=== PATIENT | female | born 1980 | race Caucasian/White ===

== ENCOUNTER → 2017-03-19 | Outpatient (CLI) | payer OTHER ==
[~2017-03-19] MED LIST: ALBU90OI INH; ALBU90OI61 INH; ALPR1 PO; ARIP10 PO; ARIP20 PO; ATEN25 PO; BACPOLTO30 TP; BCP; BUSP10 PO; BUSP15 PO; CEPH500 PO; CHLO10; CHLO10 PO; CHLO25 PO; CIPR500 PO; DIPH50 PO; DISU250; DULO60 PO; ESCI10; ESCI10 PO; ESCI20 PO; FOLI1 PO; HYDACE5 PO; HYDPAM25 PO; HYDPAM50 PO; IBUP400 PO; IBUP600 PO; IBUP800 PO; INHALER; LAMO25; LEVE500 PO; LIND60T TOP; LITH300C PO; MECL25 PO; MEDR150I; METO10 PO; METR500 PO; METR70GEL VAG; MULVITMIND; MULVITMINE PO; NAPR500 PO; NITR100CA; OXYACE5T PO; PHENA100; PHENA200 PO; PRENATAL PO; PROM25 PO; RANI150 PO; RXHYDACE PO; RXLORA1 PO; RXOXYACE PO; SERT100 PO; SERT50 PO; SPRINTEC BCP; SULTRISS; TAMS.4ER PO; TEGRETOL; TOPI25 PO; TOPI50 PO; TRAM50 PO; TRAZ100 PO; TRAZ50 PO; Triamcinolone A15 GM TOP; ZIPR40 PO; ZOLOFT PO; Zofran8 MG PO; [UNRECOGNIZED DRUG - OTHER]; [UNRECOGNIZED DRUG - REMARK]; [UNRECOGNIZED DRUG - REMARK]; [UNRECOGNIZED DRUG - REMARK]
[2017-03-19 14:17] LABS: Bilirubin, Urine Neg (Neg); Blood, Urine Neg (Neg); Glucose Qualitative, Urine Neg (Neg); Ketones, Urine 2+ (Neg); Leukocyte Esterase, Urine Neg (Neg); Nitrite, Urine Neg (Neg); Protein, Urine 3+ (Neg); Urobilinogen, Urine 1+ (Normal)
[2017-03-19 14:40] LABS: Amorphous Light (0-Heavy); Appearance, Urine Clear (Clear); Bacteria Mod /hpf; Color, Urine Yellow (P-Yellow); Red Blood Cells, Urine 0-2 /hpf (0-2); Squamous Epithelial Cells Few /hpf (Few); White Blood Cells, Urine 0-2 /hpf (0-5)
== END ==
LOC: LAB UCHC 11:28
PROVIDERS: Family Medicine
DX: R30.0 Dysuria (principal)
CPT/HCPCS: 81001; 87086; 87147

== ENCOUNTER 2017-05-05 12:17 | Emergency (ER) | payer OTHER ==
[~2017-05-05] VITALS: Ht 160 cm; Wt 65.8 kg
[~2017-05-05 12:17] MED LIST changes: -LEVE500 PO; -LIND60T TOP; -Triamcinolone A15 GM TOP
[2017-05-05] MEDS ORDERED: LEVE500 PO ×2 (12:26→13:38)
[2017-05-05 12:56] LABS: BASOPHILS ABSOLUTE AUTO 0.01 K/mm3 (0.00-0.23); BASOPHILS PERCENT AUTO 0 % (0-2); EOSINOPHILS ABSOLUTE AUTO 0.02 K/mm3 (0.00-0.68); EOSINOPHILS PERCENT AUTO 0 % (0-6); Hematocrit 33.3 % (33.0-51.0); Hemoglobin 11.3 g/dL (11.5-16.0); IMMATURE GRAN ABSOLUTE AUTO 0.01 K/mm3 (0.00-0.10); IMMATURE GRAN PERCENT AUTO 0 % (0-1); LYMPHOCYTES ABSOLUTE AUTO 0.52 K/mm3 (0.84-5.20); LYMPHOCYTES PERCENT AUTO 10 % (21-46); MONOCYTES ABSOLUTE AUTO 0.49 K/mm3 (0.16-1.47); MONOCYTES PERCENT AUTO 9 % (4-13); Mean Corpuscular HGB 33.3 pg (26.0-34.0); Mean Corpuscular HGB Conc 33.9 g/dL (31.5-36.5); Mean Corpuscular Volume 98 fL (80-100); NEUTROPHILS ABSOLUTE AUTO 4.28 K/mm3 (1.96-9.15); NEUTROPHILS PERCENT AUTO 80 % (41-73); RDW Coefficient Variation 15.8 % (11.7-14.2); RDW Standard Deviation 56.4 fL (35.1-46.3); Red Blood Cell Count 3.39 M/mm3 (3.80-5.20); White Blood Cell Count 5.33 K/mm3 (4.00-11.30)
[2017-05-05 13:16] LABS: Alanine Aminotransfer (ALT/SGP 60 U/L (12-78); Albumin, Blood 3.2 g/dL (3.4-5.0); Albumin/Globulin Ratio 0.9 (0.8-1.8); Alk Phos 104 U/L (50-136); Anion Gap 10 mmol/L (6-16); Aspartate Aminotrans (AST/SGOT 104 U/L (12-37); Bilirubin, Total 0.6 mg/dL (0.1-1.0); Blood Urea Nitrogen 9 mg/dL (8-24); Bun/Creatinine Ratio 16.3 (12.0-20.0); CO2, Blood 25 mmol/L (21-32); Calcium, Blood 8.3 mg/dL (8.5-10.1); Chloride, Blood 101 mmol/L (98-108); Creatinine, Blood 0.55 mg/dL (0.40-1.00); Globulin, Blood 3.6 g/dL (2.2-4.0); Glomerular Filtration Rate >60 (60-); Glucose, Blood 106 mg/dL (70-99); Potassium, Blood 3.7 mmol/L (3.5-5.5); Sodium, Blood 136 mmol/L (136-145); Total Protein, Blood 6.8 g/dL (6.4-8.2)
[2017-05-05 13:56] LABS: Mean Platelet Volume 11.5 fL (9.1-12.4)
[2017-05-05 14:01] LABS: Platelet Count 31 K/mm3 (150-400)
[2017-05-05] MEDS ORDERED: Triamcinolone A15 GM TOP (14:46)
== END 2017-05-05 15:05 | disposition home or self-care (01) ==
LOC: ER 12:17
PROVIDERS: Emergency Medicine
DX: G40.909 Epilepsy, unspecified, not intractable, without status epilepticus (principal); L30.9 Dermatitis, unspecified; Z91.19 Patient's noncompliance with other medical treatment and regimen; Z88.8 Allergy status to other drugs, medicaments and biological substances; Z79.899 Other long term (current) drug therapy; F43.10 Post-traumatic stress disorder, unspecified; F32.9 Major depressive disorder, single episode, unspecified; F41.9 Anxiety disorder, unspecified; F17.210 Nicotine dependence, cigarettes, uncomplicated
CPT/HCPCS: 36415; 80053; 85025; 96365; 99283; J1953

== ENCOUNTER 2017-06-21 19:22 | Observation (INO) | payer OTHER ==
[~2017-06-21] VITALS: Ht 165.1 cm; Wt 65.8 kg
[~2017-06-21 19:22] MED LIST changes: +LEVE500 PO; +Triamcinolone A15 GM TOP
[2017-06-21 21:02] LABS: BASOPHILS ABSOLUTE AUTO 0.02 K/mm3 (0.00-0.23); BASOPHILS PERCENT AUTO 0 % (0-2); EOSINOPHILS ABSOLUTE AUTO 0.43 K/mm3 (0.00-0.68); EOSINOPHILS PERCENT AUTO 8 % (0-6); Hematocrit 37.7 % (33.0-51.0); Hemoglobin 12.3 g/dL (11.5-16.0); IMMATURE GRAN ABSOLUTE AUTO 0.02 K/mm3 (0.00-0.10); IMMATURE GRAN PERCENT AUTO 0 % (0-1); LYMPHOCYTES ABSOLUTE AUTO 1.94 K/mm3 (0.84-5.20); LYMPHOCYTES PERCENT AUTO 37 % (21-46); MONOCYTES ABSOLUTE AUTO 0.64 K/mm3 (0.16-1.47); MONOCYTES PERCENT AUTO 12 % (4-13); Mean Corpuscular HGB 33.1 pg (26.0-34.0); Mean Corpuscular HGB Conc 32.6 g/dL (31.5-36.5); Mean Corpuscular Volume 101 fL (80-100); Mean Platelet Volume 11.7 fL (9.1-12.4); NEUTROPHILS ABSOLUTE AUTO 2.23 K/mm3 (1.96-9.15); NEUTROPHILS PERCENT AUTO 42 % (41-73); Platelet Count 70 K/mm3 (150-400); RDW Coefficient Variation 16.2 % (11.7-14.2); RDW Standard Deviation 59.2 fL (35.1-46.3); Red Blood Cell Count 3.72 M/mm3 (3.80-5.20); White Blood Cell Count 5.28 K/mm3 (4.00-11.30)
[2017-06-21 21:09] LABS: Anion Gap 10 mmol/L (6-16); Blood Urea Nitrogen 9 mg/dL (8-24); Bun/Creatinine Ratio 14.9 (12.0-20.0); CO2, Blood 26 mmol/L (21-32); Calcium, Blood 8.2 mg/dL (8.5-10.1); Chloride, Blood 110 mmol/L (98-108); Creatinine, Blood 0.61 mg/dL (0.40-1.00); Glomerular Filtration Rate >60 (60-); Glucose, Blood 89 mg/dL (70-99); Potassium, Blood 3.8 mmol/L (3.5-5.5); Sodium, Blood 146 mmol/L (136-145)
[2017-06-21 21:42] LABS: Ethanol (Alcohol), Blood, Med 423 mg/dL
[2017-06-22] MEDS ORDERED: LIND60T TOP (11:04)
== END 2017-06-22 11:40 | disposition home or self-care (01) ==
LOC: ER 19:22 → EOR 22:12
PROVIDERS: Emergency Medicine
DX: F19.10 Other psychoactive substance abuse, uncomplicated (principal); F10.129 Alcohol abuse with intoxication, unspecified; R56.9 Unspecified convulsions; B86 Scabies; B85.1 Pediculosis due to Pediculus humanus corporis; F43.10 Post-traumatic stress disorder, unspecified; F32.9 Major depressive disorder, single episode, unspecified; F41.9 Anxiety disorder, unspecified; R10.9 Unspecified abdominal pain; G89.29 Other chronic pain; F17.210 Nicotine dependence, cigarettes, uncomplicated; Z88.8 Allergy status to other drugs, medicaments and biological substances; Z79.899 Other long term (current) drug therapy; Y90.8 Blood alcohol level of 240 mg/100 ml or more
CPT/HCPCS: 36415; 80048; 85025; 96365; 99285; G0378; G0480; J1953

== ENCOUNTER → 2018-08-08 | Outpatient (CLI) | payer OTHER ==
[~2018-08-08] MED LIST changes: +LIND60T TOP
[2018-08-08 19:07] LABS: BASOPHILS ABSOLUTE AUTO 0.01 K/mm3 (0.00-0.23); BASOPHILS PERCENT AUTO 0 % (0-2); EOSINOPHILS ABSOLUTE AUTO 0.09 K/mm3 (0.00-0.68); EOSINOPHILS PERCENT AUTO 2 % (0-6); Hematocrit 29.8 % (33.0-51.0); Hemoglobin 9.2 g/dL (11.5-16.0); IMMATURE GRAN ABSOLUTE AUTO 0.01 K/mm3 (0.00-0.10); IMMATURE GRAN PERCENT AUTO 0 % (0-1); LYMPHOCYTES ABSOLUTE AUTO 1.06 K/mm3 (0.84-5.20); LYMPHOCYTES PERCENT AUTO 21 % (21-46); MONOCYTES ABSOLUTE AUTO 0.57 K/mm3 (0.16-1.47); MONOCYTES PERCENT AUTO 11 % (4-13); Mean Corpuscular HGB 30.1 pg (26.0-34.0); Mean Corpuscular HGB Conc 30.9 g/dL (31.5-36.5); Mean Corpuscular Volume 97 fL (80-100); NEUTROPHILS ABSOLUTE AUTO 3.31 K/mm3 (1.96-9.15); NEUTROPHILS PERCENT AUTO 66 % (41-73); RDW Coefficient Variation 17.7 % (11.7-14.2); RDW Standard Deviation 63.1 fL (35.1-46.3); Red Blood Cell Count 3.06 M/mm3 (3.80-5.20); White Blood Cell Count 5.05 K/mm3 (4.00-11.30)
[2018-08-08 19:15] LABS: Mean Platelet Volume 13.5 fL (9.1-12.4)
[2018-08-08 19:19] LABS: Alanine Aminotransfer (ALT/SGP 77 U/L (12-78); Albumin, Blood 3.1 g/dL (3.4-5.0); Albumin/Globulin Ratio 0.8 (0.8-1.8); Alk Phos 159 U/L (50-136); Anion Gap 9 mmol/L (6-16); Aspartate Aminotrans (AST/SGOT 270 U/L (12-37); Bilirubin, Total 0.3 mg/dL (0.1-1.0); Blood Urea Nitrogen 5 mg/dL (8-24); CO2, Blood 26 mmol/L (21-32); Calcium, Blood 8.3 mg/dL (8.5-10.1); Chloride, Blood 103 mmol/L (98-108); Creatinine, Blood 0.56 mg/dL (0.40-1.00); Globulin, Blood 3.9 g/dL (2.2-4.0); Glomerular Filtration Rate >60 (60-); Glucose, Blood 92 mg/dL (70-99); Potassium, Blood 3.6 mmol/L (3.5-5.5); Sodium, Blood 138 mmol/L (136-145)
[2018-08-08 19:25] LABS: Platelet Count 35 K/mm3 (150-400)
== END | disposition home or self-care (01) ==
LOC: LAB SHORT 18:30 → LAB 18:30
PROVIDERS: Family Medicine
DX: G40.909 Epilepsy, unspecified, not intractable, without status epilepticus (principal); Z79.899 Other long term (current) drug therapy
CPT/HCPCS: 80053; 84443; 85025

== ENCOUNTER → 2019-01-12 | Outpatient (CLI) | payer OTHER | END | disposition home or self-care (01) | LOC: LAB 18:26 → LAB SHORT 18:26 | DX: R30.0 Dysuria (principal); R30.9 Painful micturition, unspecified | CPT/HCPCS: 87086 ==

== ENCOUNTER → 2019-01-25 | Outpatient (CLI) | payer OTHER ==
[2019-01-28 12:07] LABS: CHLAMYDIA BY NAA Negative (Negative); GONOCOCCUS BY NAA Negative (Negative); TRICH VAG BY NAA Negative (Negative)
== END ==
LOC: LAB SHORT 18:05 → LAB 18:05
PROVIDERS: Registered Nurse Community Health
DX: Z11.3 Encounter for screening for infections with a predominantly sexual mode of transmission (principal); Z20.2 Contact with and (suspected) exposure to infections with a predominantly sexual mode of transmission; Z72.51 High risk heterosexual behavior; N89.8 Other specified noninflammatory disorders of vagina
CPT/HCPCS: 87070; 87205; 87491; 87591; 87661

== ENCOUNTER → 2019-06-05 | Outpatient (CLI) | payer OTHER ==
[~2019-06-05] MED LIST changes: +ONDA4ODT MM; +Roxicodone5 MG PO
[2019-06-05 14:57] LABS: BASOPHILS ABSOLUTE AUTO 0.02 K/mm3 (0.00-0.23); BASOPHILS PERCENT AUTO 0 % (0-2); EOSINOPHILS ABSOLUTE AUTO 0.05 K/mm3 (0.00-0.68); EOSINOPHILS PERCENT AUTO 1 % (0-6); Hematocrit 32.8 % (33.0-51.0); Hemoglobin 9.9 g/dL (11.5-16.0); IMMATURE GRAN ABSOLUTE AUTO 0.01 K/mm3 (0.00-0.10); IMMATURE GRAN PERCENT AUTO 0 % (0-1); LYMPHOCYTES ABSOLUTE AUTO 0.92 K/mm3 (0.84-5.20); LYMPHOCYTES PERCENT AUTO 16 % (21-46); MONOCYTES ABSOLUTE AUTO 0.84 K/mm3 (0.16-1.47); MONOCYTES PERCENT AUTO 15 % (4-13); Mean Corpuscular HGB 27.7 pg (26.0-34.0); Mean Corpuscular HGB Conc 30.2 g/dL (31.5-36.5); Mean Corpuscular Volume 92 fL (80-100); NEUTROPHILS ABSOLUTE AUTO 3.82 K/mm3 (1.96-9.15); NEUTROPHILS PERCENT AUTO 67 % (41-73); Platelet Count 79 K/mm3 (150-400); RDW Standard Deviation 67.5 fL (35.1-46.3); Red Blood Cell Count 3.58 M/mm3 (3.80-5.20); White Blood Cell Count 5.66 K/mm3 (4.00-11.30)
[2019-06-05 15:07] LABS: Mean Platelet Volume 13.1 fL (9.1-12.4)
[2019-06-05 15:37] LABS: Alanine Aminotransfer (ALT/SGP 66 U/L (12-78); Albumin, Blood 3.3 g/dL (3.4-5.0); Albumin/Globulin Ratio 0.8 (0.8-1.8); Alk Phos 150 U/L (50-136); Anion Gap 7 mmol/L (6-16); Aspartate Aminotrans (AST/SGOT 146 U/L (12-37); Bilirubin, Total 0.6 mg/dL (0.1-1.0); Blood Urea Nitrogen 10 mg/dL (8-24); Bun/Creatinine Ratio 22.3 (12.0-20.0); CO2, Blood 25 mmol/L (21-32); Calcium, Blood 8.6 mg/dL (8.5-10.1); Chloride, Blood 103 mmol/L (98-108); Creatinine, Blood 0.45 mg/dL (0.40-1.00); Globulin, Blood 4.1 g/dL (2.2-4.0); Glomerular Filtration Rate >60 (60-); Glucose, Blood 97 mg/dL (70-99); Potassium, Blood 4.1 mmol/L (3.5-5.5); Sodium, Blood 135 mmol/L (136-145); Total Protein, Blood 7.4 g/dL (6.4-8.2)
[2019-06-05 15:40] LABS: Alanine Aminotransfer (ALT/SGP 66 U/L (12-78); Albumin, Blood 3.3 g/dL (3.4-5.0); Albumin/Globulin Ratio 0.8 (0.8-1.8); Alk Phos 150 U/L (50-136); Anion Gap 6 mmol/L (6-16); Aspartate Aminotrans (AST/SGOT 145 U/L (12-37); Bilirubin, Direct 0.2 mg/dL (0.0-0.3); Bilirubin, Indirect 0.5 mg/dL (0.1-0.7); Bilirubin, Total 0.7 mg/dL (0.1-1.0); Blood Urea Nitrogen 10 mg/dL (8-24); Bun/Creatinine Ratio 19.7 (12.0-20.0); CO2, Blood 26 mmol/L (21-32); Calcium, Blood 8.5 mg/dL (8.5-10.1); Chloride, Blood 103 mmol/L (98-108); Creatinine, Blood 0.51 mg/dL (0.40-1.00); Globulin, Blood 4.1 g/dL (2.2-4.0); Glomerular Filtration Rate >60 (60-); Glucose, Blood 96 mg/dL (70-99); Phosphorus, Blood 3.2 mg/dL (2.5-4.9); Potassium, Blood 4.1 mmol/L (3.5-5.5); Sodium, Blood 135 mmol/L (136-145); Total Protein, Blood 7.4 g/dL (6.4-8.2)
[2019-06-05 16:08] LABS: Percent Saturation 10.6 % (15.0-50.0)
== END | disposition home or self-care (01) ==
LOC: LAB SHORT 13:40 → OLS 13:40 → LAB FUT 01-13 16:35
PROVIDERS: Family Medicine; Internal Medicine Nephrology
DX: G40.909 Epilepsy, unspecified, not intractable, without status epilepticus (principal); F10.10 Alcohol abuse, uncomplicated; N18.2 Chronic kidney disease, stage 2 (mild); R73.09 Other abnormal glucose; N25.81 Secondary hyperparathyroidism of renal origin; R94.5 Abnormal results of liver function studies; Z79.899 Other long term (current) drug therapy
CPT/HCPCS: 36415; 80053; 80177; 82248; 82306; 82607; 82728; 82746; 83036; 83540; 83550; 83970; 84100; 85025

== ENCOUNTER 2019-07-20 07:40 | Day surgery (SDC) | payer OTHER ==
[~2019-07-20] VITALS: Ht 208.3 cm; Wt 82.9 kg
[~2019-07-20 07:40] MED LIST changes: +LOSA25 PO; +OMEP20ER PO; +Vitamin D2000 UNIT PO
--- NOTE | 2019-07-20 08:25 | NUR ---
Ambulatory in Day Surgery Patient states colon prep results clear. History, Chart, Medications and Allergies reviewed before start of procedure. Pre-Op teaching done. Pt verbalizes understanding.
[2019-07-20] MEDS ORDERED: ALBU90OI INH (08:30)
--- NOTE | 2019-07-20 09:37 | NUR ---
07/20/19 0937 SARAH HAMILTON History, Chart, Medications and Allergies reviewed before start of procedure. 3-LEAD EKG REVIEWED WITH PHYSICIAN PRIOR TO START OF PROCEDURE. O2 VIA N/C INTACT THROUGHOUT SEDATION/PROCEDURE. MONITOR INTACT WITH CONTINUOUS PULSE OXIMETRY AND INTERMITTENT BP. MAC WITH DR. LÓPEZ.
--- NOTE | 2019-07-20 10:03 | NUR ---
LIBRIUM 20MG PO GIVEN PER DR FITZGERALD ORDERS. Discharge instructions reviewed with patient. Patient verbalizes understanding. Copy given to patient to take home. Patient up to Ambulate independently. Gait steady. Patient States Post-Procedure ride home has been arranged. Discharged via wheelchair to private car for ride home.
== END 2019-07-20 10:17 | disposition home or self-care (01) ==
LOC: ORSCMMR 07:40
PROVIDERS: Internal Medicine Gastroenterology
PROC: 0DBK8ZX Excision of Ascending Colon, Via Natural or Artificial Opening Endoscopic, Diagnostic (ICD-10-PCS; principal; 2019-07-20 08:45)
PROC: 0DB98ZX Excision of Duodenum, Via Natural or Artificial Opening Endoscopic, Diagnostic (ICD-10-PCS; principal; 2019-07-20 08:45)
PROC: 0DBN8ZX Excision of Sigmoid Colon, Via Natural or Artificial Opening Endoscopic, Diagnostic (ICD-10-PCS; principal; 2019-07-20 08:45)
PROC: 0DBM8ZX Excision of Descending Colon, Via Natural or Artificial Opening Endoscopic, Diagnostic (ICD-10-PCS; principal; 2019-07-20 08:45)
PROC: 0DB48ZX Excision of Esophagogastric Junction, Via Natural or Artificial Opening Endoscopic, Diagnostic (ICD-10-PCS; principal; 2019-07-20 08:45)
DX: K92.0 Hematemesis (principal); D46.4 Refractory anemia, unspecified; K21.9 Gastro-esophageal reflux disease without esophagitis; D12.2 Benign neoplasm of ascending colon; K63.5 Polyp of colon; D69.6 Thrombocytopenia, unspecified; F17.210 Nicotine dependence, cigarettes, uncomplicated; I10 Essential (primary) hypertension; Z79.899 Other long term (current) drug therapy; F10.20 Alcohol dependence, uncomplicated
CPT/HCPCS: 88305; 88312; J2001; J2250; J2405; J2704; J7120

== ENCOUNTER → 2019-12-11 | Outpatient (CLI) | payer OTHER ==
[~2019-12-11] MED LIST changes: +SULTRIDS PO
[2019-12-11 19:54] LABS: Hematocrit 28.8 % (33.0-51.0); Hemoglobin 8.7 g/dL (11.5-16.0)
[2019-12-11 20:12] LABS: Thyroid Stimulating Hormone 3.52 uIU/mL (0.360-4.800); Triiodothyronine, Free 2.95 pg/mL (2.18-3.98)
[2019-12-14 16:07] LABS: HPV 16 Negative (Negative); HPV 18 Negative (Negative); HPV OTHER HR TYPES Negative (Negative)
== END ==
LOC: LAB SHORT 19:23 → LAB 19:23
PROVIDERS: Registered Nurse Community Health
DX: Z01.419 Encounter for gynecological examination (general) (routine) without abnormal findings (principal); N92.0 Excessive and frequent menstruation with regular cycle
CPT/HCPCS: 84439; 84443; 84481; 85014; 85018; 87624; G0123

== ENCOUNTER 2020-05-21 14:10 | Inpatient (IN) | payer OTHER ==
[~2020-05-21] VITALS: Ht 157.5 cm; Wt 96.9 kg
[~2020-05-21 14:10] MED LIST changes: +BANOPHEN25 MG PO; +LACT10SY PO; +LEVETIRACETAM1000 M1 PO; -LOSA25 PO; +LOSA50 PO; +OXYC5 PO; +PANT40 PO; +VITAMIN D32000 UNI1 PO
[2020-05-21] MEDS ORDERED: PANTOPRAZOLE SO40 M2 PO (14:39)
[2020-05-21 15:03] LABS: Magnesium, Blood 1.5 mg/dL (1.6-2.4); Troponin I <0.015 ng/mL (0.000-0.040)
[2020-05-21 15:04] LABS: Alanine Aminotransfer (ALT/SGP 45 U/L (12-78); Albumin, Blood 2.6 g/dL (3.4-5.0); Albumin/Globulin Ratio 0.6 (0.8-1.8); Alk Phos 541 U/L (50-136); Anion Gap 12 mmol/L (6-16); Aspartate Aminotrans (AST/SGOT 235 U/L (12-37); Bilirubin, Direct 1.1 mg/dL (0.0-0.3); Bilirubin, Indirect 0.5 mg/dL (0.1-0.7); Bilirubin, Total 1.6 mg/dL (0.1-1.0); Blood Urea Nitrogen 5 mg/dL (8-24); Bun/Creatinine Ratio 10.6 (12.0-20.0); CO2, Blood 24 mmol/L (21-32); Calcium, Blood 7.8 mg/dL (8.5-10.1); Chloride, Blood 101 mmol/L (98-108); Creatinine, Blood 0.47 mg/dL (0.40-1.00); Globulin, Blood 4.2 g/dL (2.2-4.0); Glomerular Filtration Rate >60 (60-); Glucose, Blood 108 mg/dL (70-99); Potassium, Blood 3.9 mmol/L (3.5-5.5); Sodium, Blood 137 mmol/L (136-145); Total Protein, Blood 6.8 g/dL (6.4-8.2)
[2020-05-21 15:06] LABS: BASOPHILS ABSOLUTE AUTO 0.03 K/mm3 (0.00-0.23); BASOPHILS PERCENT AUTO 0 % (0-2); EOSINOPHILS ABSOLUTE AUTO 0.08 K/mm3 (0.00-0.68); EOSINOPHILS PERCENT AUTO 1 % (0-6); Hematocrit 25.8 % (33.0-51.0); Hemoglobin 8.7 g/dL (11.5-16.0); IMMATURE GRAN ABSOLUTE AUTO 0.03 K/mm3 (0.00-0.10); IMMATURE GRAN PERCENT AUTO 0 % (0-1); LYMPHOCYTES ABSOLUTE AUTO 1.39 K/mm3 (0.84-5.20); LYMPHOCYTES PERCENT AUTO 16 % (21-46); MONOCYTES ABSOLUTE AUTO 0.91 K/mm3 (0.16-1.47); MONOCYTES PERCENT AUTO 11 % (4-13); Mean Corpuscular HGB 38.7 pg (26.0-34.0); Mean Corpuscular HGB Conc 33.7 g/dL (31.5-36.5); Mean Corpuscular Volume 115 fL (80-100); Mean Platelet Volume 12.7 fL (9.1-12.4); NEUTROPHILS PERCENT AUTO 71 % (41-73); NRBC ABSOLUTE 0.02 K/mm3 (0.00-0.02); NRBC Auto 0.2 /100 WBC (0.0-0.2); RDW Coefficient Variation 15.9 % (11.7-14.2); RDW Standard Deviation 66.3 fL (35.1-46.3); Red Blood Cell Count 2.25 M/mm3 (3.80-5.20); White Blood Cell Count 8.54 K/mm3 (4.00-11.30)
[2020-05-21 15:08] LABS: International Normalized Ratio 1.08; Prothrombin Time Results 11.6 Sec (9.7-11.5)
[2020-05-21] MEDS ORDERED: SPIRONOLACTONE25 MG PO (15:22)
[2020-05-21 15:25] LABS: Platelet Count 39 K/mm3 (150-400)
[2020-05-21 16:18] LABS: Source, Urine Catheter
[2020-05-21 16:57] LABS: Appearance, Urine Hazy (Clear); Blood, Urine 2+ (Neg); Color, Urine Amber (P-Yellow); Glucose Qualitative, Urine Neg (Neg); Ketones, Urine 2+ (Neg); Leukocyte Esterase, Urine 1+ (Neg); Nitrite, Urine Pos (Neg); Protein, Urine 3+ (Neg); Specific Gravity, Urine 1.025 (1.003-1.022); Urobilinogen, Urine 3+ (Normal)
[2020-05-21 17:15] LABS: U Amphetamine Screen Not Detected; U Barbituate Screen Not Detected; U Benzodiazapine Screen Not Detected; U Buprenorphine Screen Not Detected; U Cannabinoids Screen DETECTED; U Cocaine Screen Not Detected; U Methadone Screen Not Detected; U Methamphetamine Screen Not Detected; U Opiates Screen Not Detected; U Oxycodone Screen Not Detected; U Phencyclidine Screen Not Detected; U Propoxyphene Screen Not Detected
[2020-05-21 17:19] LABS: Bilirubin, Urine 2+ (Neg)
[2020-05-21 17:22] LABS: Amorphous Light (0-Heavy); Bacteria Many /hpf; Mucus Light (0-Heavy); Renal Epithelial Few /hpf (0-Rare); Squamous Epithelial Cells Rare /hpf (Few); Transitional Epithelial Cells Few /hpf (0-Rare)
[2020-05-21 19:59] LABS: Hematocrit 21.3 % (33.0-51.0); Hemoglobin 7.1 g/dL (11.5-16.0)
--- NOTE | 2020-05-21 23:15 | NUR ---
REPORT RECIEVED FROM STREETCAR OPERATOR. PT ARRIVED IN ICU 2004 VIA STRETCHER, A&O, ABLE TO STAND AND WALK TO BED. LARGE CLOT FROM MENSES ON BED. VITALS DONE, NAOTED AND STABLE, PT ON 2 L N/C. STARTED PROTONIX GTT AND IV NS PER ORDERS SEE APR. PT UP TO BSC WITH ASSIST OF 1 FOR HELP WITH LINES. VOIDED, SMALL BM/ APPEARS DARK IN COLOR, AND ANOTHER LARGE MENSES CLOT NOTED. PT BACK TO BED, CONTINUE ASSESSMENT, VITALS AND CARE.
[2020-05-21 23:47] LABS: Hemoglobin 6.6 g/dL (11.5-16.0)
--- NOTE | 2020-05-22 00:08 | NUR ---
LABS DONE, H&H LOW AT 6.6 & 20.0. MD NOTIFIED. 1 UNIT OF PRBC ORDERED, HOLD NEXT H&H TILL POST BLOOD INFUSION. THEN CONTINUE Q4 H&H LABS.ASSESSMENT, PT CONTINUES TO BE A&O, VITALS STABLE. WAITING PRBC TO START INFUSION. CONTINUE TO ASSESS AND CARE.
--- NOTE | 2020-05-22 00:44 | NUR ---
1 UNIT PRBC STARTED, VITALS NOTED, BS: CLEAR BILAT. CONTINUE ONGOING ASSESSMENT.
--- NOTE | 2020-05-22 04:05 | NUR ---
REASSESSMENT PT SLEEPING, WAKES TO VOICE, A&O. CIWA 5. 1 UNIT BLOOD DONE INFUSING. NEXT LABS AT 0430. PROTONIX INFUSING AT 10ML/HR. IVF @ 100ML/HR. PT ABLE TO GET UP TO BSC WITH ASSIST OF 1. CONTINUES TO HAVE MENSTRUAL CLOTS. CONTINUE ASSESSMENT AND CARE.
[2020-05-22 05:23] LABS: BASOPHILS ABSOLUTE AUTO 0.02 K/mm3 (0.00-0.23); BASOPHILS PERCENT AUTO 0 % (0-2); EOSINOPHILS ABSOLUTE AUTO 0.08 K/mm3 (0.00-0.68); EOSINOPHILS PERCENT AUTO 1 % (0-6); Hematocrit 23.9 % (33.0-51.0); Hemoglobin 7.8 g/dL (11.5-16.0); IMMATURE GRAN ABSOLUTE AUTO 0.02 K/mm3 (0.00-0.10); IMMATURE GRAN PERCENT AUTO 0 % (0-1); LYMPHOCYTES ABSOLUTE AUTO 1.17 K/mm3 (0.84-5.20); LYMPHOCYTES PERCENT AUTO 17 % (21-46); MONOCYTES ABSOLUTE AUTO 0.65 K/mm3 (0.16-1.47); MONOCYTES PERCENT AUTO 10 % (4-13); Mean Corpuscular HGB 36.8 pg (26.0-34.0); Mean Corpuscular HGB Conc 32.6 g/dL (31.5-36.5); Mean Corpuscular Volume 113 fL (80-100); Mean Platelet Volume 12.5 fL (9.1-12.4); NEUTROPHILS ABSOLUTE AUTO 4.83 K/mm3 (1.96-9.15); NEUTROPHILS PERCENT AUTO 71 % (41-73); NRBC ABSOLUTE 0.02 K/mm3 (0.00-0.02); NRBC Auto 0.3 /100 WBC (0.0-0.2); RDW Coefficient Variation 22.3 % (11.7-14.2); Red Blood Cell Count 2.12 M/mm3 (3.80-5.20); White Blood Cell Count 6.77 K/mm3 (4.00-11.30)
[2020-05-22 05:28] LABS: Platelet Count 33 K/mm3 (150-400)
[2020-05-22 05:48] LABS: Alanine Aminotransfer (ALT/SGP 36 U/L (12-78); Albumin, Blood 2.3 g/dL (3.4-5.0); Albumin/Globulin Ratio 0.7 (0.8-1.8); Alk Phos 440 U/L (50-136); Anion Gap 7 mmol/L (6-16); Aspartate Aminotrans (AST/SGOT 178 U/L (12-37); Bilirubin, Total 2.1 mg/dL (0.1-1.0); Blood Urea Nitrogen 4 mg/dL (8-24); Bun/Creatinine Ratio 7.8 (12.0-20.0); CO2, Blood 26 mmol/L (21-32); Calcium, Blood 7.3 mg/dL (8.5-10.1); Chloride, Blood 104 mmol/L (98-108); Creatinine, Blood 0.51 mg/dL (0.40-1.00); Globulin, Blood 3.5 g/dL (2.2-4.0); Glomerular Filtration Rate >60 (60-); Glucose, Blood 91 mg/dL (70-99); Potassium, Blood 4.1 mmol/L (3.5-5.5); Sodium, Blood 137 mmol/L (136-145); Total Protein, Blood 5.8 g/dL (6.4-8.2)
--- NOTE | 2020-05-22 07:45 | NUR ---
ASSUMED CARE BEDSIDE REPORT RECIEVED. PT IS LAYING IN BED RESTING QUIELTY. PT AWAKENS TO VERBAL STIMULI. PT IS DROWSEY, BUT ANSWERS QUESTIONS APPROPRIATELY. PT MOVES ALL EXTREMITIES. TREMORS WITH MOVEMENT NOTED. VITAL SIGNS STABLE. PT ON 2L O2 NC. PT WITH NS INFUSING AT 100 ML/HR AND PROTONIX AT 10 ML/HR. PT WITH ATTENDS IN PLACE. PT WITH BLOOD IN STOOL AND HEAVY VAGINAL BLEEDING WITH CLOTS. DISCUSSED PLAN OF CARE WITH DR AREVALO, PLAN TO CONSULT WITH DR SANTOS. WILL CONTINUE TO MONITOR.
[2020-05-22 09:02] LABS: Hematocrit 21.9 % (33.0-51.0); Hemoglobin 7.2 g/dL (11.5-16.0)
[2020-05-22 13:36] LABS: Hematocrit 20.6 % (33.0-51.0); Hemoglobin 6.8 g/dL (11.5-16.0)
--- NOTE | 2020-05-22 15:11 | NUR ---
FAMILY/UPDATE PT SPOUSE AT BEDSIDE. PT SPOUSE GIVING PT DRINKS OF WATER UPON WALKING INTO ROOM. INSTRUCTED PT AND SPOUSE NEED TO KEEP PT NPO AT THIS TIME. PT REMAINS ALERT AND TREMULOUS. UPDATED PT SPOUSE TO CURRENT CONDITION AND PLAN OF CARE. WILL CONTINUE TO MONITOR.
--- NOTE | 2020-05-22 17:29 | NUR ---
SHIFT SUMMARY: PT AROUSABLE, RESPONDS TO VERBAL DIRECTION THOUGH VERY SLEEPY. SAT 92% ON 2L O2. EXPIRATORY WHEEZE THROUGHOUT. VS STABLE. RECEIVED 1 UNIT PLT AND 1 UNIT PRBC INFUSING AT THIS TIME. HR 100'S-110'S, SR. HYPERACTIVE BOWEL TONES. MILD ABDOMINAL DISTENTION, TENDERNESS UPON PALPATION. 1 PERSON SBA TO BEDSIDE COMMODE. VAGINAL BLEEDING REMAINS, LARGE AMOUNTS OF BRIGHT RED BLOOD WITH CLOTS. HAD CONSULT WITH DR SANTOS TODAY. VERY TREMULOUS, MEDICATED PER EMAR. SCD'S ON LOWER EXTREMITIES. ABLE TO TURN AND ADJUST HERSELF NEEDED. NPO AT THIS TIME. PT SPOUSE REMAINS AT BEDSIDE. PICC TO TIARA WITH PROTONIX INFUSING AT 10ML/HR, NS AT 100ML/HR. WILL CONTINUE TO MONITOR.
--- NOTE | 2020-05-22 18:29 | NUR ---
Spiritual care note: Per admit trigger, I was tasked with educating Saadia about advanced care planning. She was too sleepy to stay awake long enough for meaningful conversation. I left information on bedisde table and will attempt conversation in coming days.
[2020-05-22 20:09] LABS: Hematocrit 22.5 % (33.0-51.0); Hemoglobin 7.4 g/dL (11.5-16.0)
--- NOTE | 2020-05-22 22:25 | NUR ---
ASUMPTION OF CARE: Patient drowsy on assessment but A/O X2. FOLLOWS COMMANDS ANS OPENS EYES TO SOUNDS/STIMULATION. STATES SHE HAS MINOR ABDOMENAL PAIN. NO EVIDENCE OF WITHDRAWL AT THIS TIME, WILL CONTINIE TO ASSESS. PATIENT STARTED ON REGULAR DIET AND TOLERATING JUST FINE. WILL CONTINUE TO CHECK H&H AND TX NEEDED
[2020-05-23 04:06] LABS: BASOPHILS ABSOLUTE AUTO 0.02 K/mm3 (0.00-0.23); BASOPHILS PERCENT AUTO 0 % (0-2); EOSINOPHILS ABSOLUTE AUTO 0.16 K/mm3 (0.00-0.68); EOSINOPHILS PERCENT AUTO 3 % (0-6); Hematocrit 23.7 % (33.0-51.0); Hemoglobin 7.8 g/dL (11.5-16.0); IMMATURE GRAN ABSOLUTE AUTO 0.01 K/mm3 (0.00-0.10); IMMATURE GRAN PERCENT AUTO 0 % (0-1); LYMPHOCYTES ABSOLUTE AUTO 1.27 K/mm3 (0.84-5.20); LYMPHOCYTES PERCENT AUTO 20 % (21-46); MONOCYTES ABSOLUTE AUTO 0.42 K/mm3 (0.16-1.47); MONOCYTES PERCENT AUTO 7 % (4-13); Mean Corpuscular HGB 36.1 pg (26.0-34.0); Mean Corpuscular HGB Conc 32.9 g/dL (31.5-36.5); Mean Corpuscular Volume 110 fL (80-100); NEUTROPHILS ABSOLUTE AUTO 4.51 K/mm3 (1.96-9.15); NEUTROPHILS PERCENT AUTO 71 % (41-73); NRBC ABSOLUTE 0.04 K/mm3 (0.00-0.02); NRBC Auto 0.6 /100 WBC (0.0-0.2); Platelet Count 56 K/mm3 (150-400); RDW Standard Deviation 92.9 fL (35.1-46.3); Red Blood Cell Count 2.16 M/mm3 (3.80-5.20); White Blood Cell Count 6.39 K/mm3 (4.00-11.30)
[2020-05-23 04:52] LABS: Alanine Aminotransfer (ALT/SGP 32 U/L (12-78); Albumin, Blood 2.2 g/dL (3.4-5.0); Albumin/Globulin Ratio 0.7 (0.8-1.8); Alk Phos 422 U/L (50-136); Aspartate Aminotrans (AST/SGOT 180 U/L (12-37); Bilirubin, Total 2.2 mg/dL (0.1-1.0); Blood Urea Nitrogen 4 mg/dL (8-24); Bun/Creatinine Ratio 7.8 (12.0-20.0); CO2, Blood 27 mmol/L (21-32); Creatinine, Blood 0.51 mg/dL (0.40-1.00); Globulin, Blood 3.3 g/dL (2.2-4.0); Glomerular Filtration Rate >60 (60-); Glucose, Blood 90 mg/dL (70-99); Total Protein, Blood 5.5 g/dL (6.4-8.2)
[2020-05-23 04:59] LABS: Anion Gap 6 mmol/L (6-16); Calcium, Blood 7.5 mg/dL (8.5-10.1); Chloride, Blood 104 mmol/L (98-108); Potassium, Blood 3.7 mmol/L (3.5-5.5); Sodium, Blood 137 mmol/L (136-145)
--- NOTE | 2020-05-23 05:33 | NUR ---
SUMMARY: PATIENT SLEPT MOST OF THE NIGHT AND GOT UP TO BEDSIDE CAMMODE MULTIPLE TIMES WITH NO REPORTS OF DIZZINESS OR NAUSEA. CIWA 3-4 TONIGHT AND IS VERY COOPERATIVE. PER HOSPITALIST, NO Q4 H&H OVERNIGHT. CBC THIS MORNING 7.8 WITH NO PLANS TO TRANSFUSE. VITALS SIGNS REMAIN STABLE ON 2L NC
--- NOTE | 2020-05-23 08:00 | NUR ---
ASSUMED CARE PT SLEEPING AT THIS TIME, EASILY AROUSABLE. PICC LINE IN PLACE TIARA INFUSING NS. VERY TREMULOUS. WEARING BILATERAL PAS. BACK OF GOWN SATURATED FROM VAGINAL BLEEDING. ABDOMEN MILDLY DISTENDED, PAINFUL WITH PALPATION. SAT 90% ON 3.5l O2. VS STABLE. WILL CONTINUE TO MONITOR.
--- NOTE | 2020-05-23 12:35 | NUR ---
DR ANGELY AU AT BEDSIDE TO SEE PT. UPDATED ON CURRENT PT STATUS. PT TO BE MADE PCU STATUS AT THIS TIME. NO OTHER NEW ORDERS RECIEVED.
--- NOTE | 2020-05-23 17:06 | NUR ---
SHIFT SUMMARY PT SPOUSE AT BEDSIDE. SLEEPY MOST OF THE DAY THOUGH EASILY AROUSABLE. VAGINAL BLEEDING REMAINS, MODERATE AMOUNT OF CLOTS. VS STABLE. VERY TREMULOUS, MEDICATED PER EMAR. CO ABDOMINAL PAIN, TENDER TO PALPATION. PICC TO TIARA INFUSING NS. IV TO R HAND, SALINE LOCKED. PT UP TO BEDSIDE COMMODE WITH SB ASSISTANCE. PT TOLERATING PO DIET WELL. WILL CONTINUE TO MONITOR.
--- NOTE | 2020-05-23 17:32 | NUR ---
DOCUMENTATION REVIEW ALL NOTES AND ASSESSMENTS DONE THIS SHIFT REVIEWED. I AGREE WITH ALL DOCUMENTATION DONE BY SUPERVISOR ASPHALT PAVING THIS SHIFT.
--- NOTE | 2020-05-24 05:49 | NUR ---
SHIFT SUMMARY PATIENT ALERT AND OCCASIONALLY NOT ORIENTED DEPENDING ON SEVERITY OF WITHDRAWL. SLOW TO RESPOND. PT WOKE UP STATING "I KEEP FORGETTING WHERE I AM" CONTINUED TO REORIENT PATIENT. PT UP TO BEDSIDE COMMODE SEVERAL TIMES T/O THE NIGHT. PATIENT THRASHES WHILE SLEEPING AND REPEATEDLY PULLS OFF OXYGEN, SPO2 PROBE, CARDIAC LEADS, AND BLOOD PRESSURE CUFF T/O THE SHIFT. SHE BECAME INCREASINGLY ANXIOUS AND AGITATED CUSSING AT STAFF. PT WAS THEN MEDICATED WITH 2MG ATIVAN. AGITATION RESOLVED AFTER MEDICATED. CONTINUED TO MEDICATE WITH LIBRIUM TO ACHEIVE CIWA<8. VSS IN SINUS RHYTHM. O2 SATURATION IN 90'S ON 3L NC WHEN PATIENT KEEPS NC ON. PTS VAGINAL BLEEDING IMPROVED OVER NIGHT. SCANT OUPUT NOTED. PICC PATENT AND SECURE WITH BLOOD RETURN. BED ALARM IN PLACE. WILL CONTINUE TO MONITOR UNTIL END OF SHIFT.
--- NOTE | 2020-05-24 06:59 | NUR ---
STUDENT RN THIS RN AGREES WITH STUDENT RN'S ASESMENT AND CHARTING.
[2020-05-24 07:09] LABS: HBSAG SCREEN Negative (Negative); HEP B CORE AB, TOT Negative (Negative); HEP C VIRUS AB <0.1 (0.0-0.9)
--- NOTE | 2020-05-24 09:15 | NUR ---
CARE ASSUMED ASSESSMENTS COMPLETED, PT SLEEPING BUT WAKES EASILY TO VOICE. REMAINS ORIENTED X4, AGITATED, ANXIOUS, TREMULOUS. CIWA 15, MEDICATED WITH LIBRIUM. HR SINUS 90'S, BP STABLE, LS WITH FAINT EXP WHEEZES ON R, CLEAR IN OTHER LOBES. O2 2L/NC WITH SPO2 94-98%, OCCASIONAL COUGH NOTED, PT A SMOKER. ABD DISTENDED, BT ACTIVE, NO NAUSEA OR ABD PAIN PER PT REPORT. PICC TO L UPPER ARM WITH NS AT 100ML/HR, PICC FLUSHES/DRAWS WELL. PT ASSISTED TO BSC TO VOID, URINE ORANGE, NO ACTIVE VAGINAL BLEEDING OR CLOTS AT THIS TIME, NO BLOOD IN BRIEF OR ON TOILET PAPER AFTER WIPING. PT TOLERATED PO MEDS WELL, CONTROL ADMINISTERED PER ORDERS, NICOTINE PATCH PLACED ON L SHOULDER. REPORT GIVEN TO RA SHERIFF WHO ASSUMED CARE AT 0915.
[2020-05-24] MEDS ORDERED: FAMO20 PO (11:15)
[2020-05-24] MEDS ORDERED: TRAM50 PO (11:17)
--- NOTE | 2020-05-24 12:06 | NUR ---
UPDATE DISCHARGE INSTRUCTIONS PROVIDED TO PT. PT EDUCATED ON NEW MEDICATIONS. ALL QUESTIONS ANSWERED. PT AWAITING RIDE AND WILL BE TAKEN OUT BY WC.
--- NOTE | 2020-05-24 12:57 | NUR ---
UPDATE PT SITTING UP IN CHAIR. THIS RN LEAVES THE ROOM TO GET WHEELCHAIR AND PT STATES SHE DROPS HER PHONE ON THE GROUND. SHE STATES SHE THEN DECIDED TO SIT ON THE FLOOR WHEN SHE PICKED IT UP. NO FALL WITNESSED. PT STATES SHE "JUST SAT ON THE FLOOR". THIS RN AND ANOTHER RN ASSIST PT TO STAND AND PT PLACED IN WC. PT TRANSFER TO WITH STEADY GATE. PT TAKEN OUT BY TO DISCHARGE.
== END 2020-05-24 12:59 | disposition home or self-care (01) | DRG 760 ==
LOC: ER 14:10 → ICUE 19:41 → ICUW 19:41 → ICUE 20:05
PROVIDERS: Emergency Medicine; Internal Medicine Gastroenterology; Nurse Practitioner Acute Care; ADMIT Internal Medicine
PROC: 30233R1 Transfusion of Nonautologous Platelets into Peripheral Vein, Percutaneous Approach (ICD-10-PCS; principal; 2020-05-21)
PROC: 30233N1 Transfusion of Nonautologous Red Blood Cells into Peripheral Vein, Percutaneous Approach (ICD-10-PCS; 2020-05-21)
DX: N93.9 Abnormal uterine and vaginal bleeding, unspecified (principal); D62 Acute posthemorrhagic anemia; F10.239 Alcohol dependence with withdrawal, unspecified; K92.0 Hematemesis; K92.1 Melena; G40.909 Epilepsy, unspecified, not intractable, without status epilepticus; G89.29 Other chronic pain; R10.9 Unspecified abdominal pain; F17.210 Nicotine dependence, cigarettes, uncomplicated; F32.9 Major depressive disorder, single episode, unspecified; F43.10 Post-traumatic stress disorder, unspecified; F41.9 Anxiety disorder, unspecified; K70.40 Alcoholic hepatic failure without coma; I10 Essential (primary) hypertension; D69.6 Thrombocytopenia, unspecified; E55.9 Vitamin D deficiency, unspecified; J44.9 Chronic obstructive pulmonary disease, unspecified; E83.42 Hypomagnesemia; F10.229 Alcohol dependence with intoxication, unspecified; Y90.8 Blood alcohol level of 240 mg/100 ml or more; Z87.19 Personal history of other diseases of the digestive system; Z88.1 Allergy status to other antibiotic agents; Z88.8 Allergy status to other drugs, medicaments and biological substances; Z98.890 Other specified postprocedural states; Z79.899 Other long term (current) drug therapy; Z56.0 Unemployment, unspecified
CPT/HCPCS: 36415; 36430; 36569; 71045; 76830; 76856; 80048; 80053; 80076; 81001; 82607; 82746; 83690; 83735; 84484; 84702; 85014; 85018; 85025; 85610; 85730; 86317; 86704; 86708; 86803; 86850; 86900; 86901; 86923; 87086; 87340; 93005; 93010; 94640; 96365; 96366; 96367; 96368; 96375; 99285-25; A9270; C1751; C1769; C9113; G0480; J0696; J2060; J2354; J2405; J2560; J3411; J3475; J7030; J7042; J7050; P9016; P9035; P9612

== ENCOUNTER 2020-06-01 15:08 | Emergency (ER) | payer OTHER ==
[~2020-06-01] VITALS: Ht 162.6 cm; Wt 90.7 kg
[~2020-06-01 15:08] MED LIST changes: +FAMO20 PO; +PANTOPRAZOLE SO40 M2 PO; +SPIRONOLACTONE25 MG PO
[2020-06-01 15:29] LABS: Source, Urine Clean Catch
[2020-06-01 15:44] LABS: BASOPHILS ABSOLUTE AUTO 0.08 K/mm3 (0.00-0.23); BASOPHILS PERCENT AUTO 1 % (0-2); EOSINOPHILS ABSOLUTE AUTO 0.33 K/mm3 (0.00-0.68); EOSINOPHILS PERCENT AUTO 3 % (0-6); Hematocrit 28.9 % (33.0-51.0); Hemoglobin 9.1 g/dL (11.5-16.0); IMMATURE GRAN ABSOLUTE AUTO 0.04 K/mm3 (0.00-0.10); IMMATURE GRAN PERCENT AUTO 0 % (0-1); LYMPHOCYTES ABSOLUTE AUTO 2.17 K/mm3 (0.84-5.20); LYMPHOCYTES PERCENT AUTO 19 % (21-46); MONOCYTES ABSOLUTE AUTO 1.18 K/mm3 (0.16-1.47); MONOCYTES PERCENT AUTO 10 % (4-13); Mean Corpuscular HGB 35.1 pg (26.0-34.0); Mean Corpuscular HGB Conc 31.5 g/dL (31.5-36.5); Mean Corpuscular Volume 112 fL (80-100); Mean Platelet Volume 12.4 fL (9.1-12.4); NEUTROPHILS PERCENT AUTO 67 % (41-73); Platelet Count 198 K/mm3 (150-400); RDW Coefficient Variation 21.2 % (11.7-14.2); RDW Standard Deviation 87.5 fL (35.1-46.3); Red Blood Cell Count 2.59 M/mm3 (3.80-5.20)
[2020-06-01 15:54] LABS: Appearance, Urine Clear (Clear); Bilirubin, Urine Neg (Neg); Blood, Urine Neg (Neg); Color, Urine Yellow (P-Yellow); Glucose Qualitative, Urine Neg (Neg); Ketones, Urine Neg (Neg); Leukocyte Esterase, Urine Neg (Neg); Nitrite, Urine Neg (Neg); Protein, Urine Neg (Neg); Specific Gravity, Urine 1.005 (1.003-1.022); Urobilinogen, Urine NORM (Normal)
[2020-06-01 15:59] LABS: Alanine Aminotransfer (ALT/SGP 29 U/L (12-78); Albumin, Blood 2.4 g/dL (3.4-5.0); Albumin/Globulin Ratio 0.6 (0.8-1.8); Alk Phos 457 U/L (50-136); Anion Gap 5 mmol/L (6-16); Aspartate Aminotrans (AST/SGOT 146 U/L (12-37); Bilirubin, Total 1.2 mg/dL (0.1-1.0); Blood Urea Nitrogen 3 mg/dL (8-24); Bun/Creatinine Ratio 6.1 (12.0-20.0); CO2, Blood 30 mmol/L (21-32); Chloride, Blood 101 mmol/L (98-108); Creatinine, Blood 0.49 mg/dL (0.40-1.00); Globulin, Blood 4.3 g/dL (2.2-4.0); Glomerular Filtration Rate >60 (60-); Glucose, Blood 104 mg/dL (70-99); Potassium, Blood 3.3 mmol/L (3.5-5.5); Sodium, Blood 136 mmol/L (136-145); Total Protein, Blood 6.7 g/dL (6.4-8.2)
[2020-06-01 16:05] LABS: Ethanol (Alcohol), Blood, Med 153 mg/dL; International Normalized Ratio 1.11; Prothrombin Time Results 11.9 Sec (9.7-11.5); Troponin I <0.015 ng/mL (0.000-0.040)
[2020-06-01 16:08] LABS: Magnesium, Blood 1.4 mg/dL (1.6-2.4); Phosphorus, Blood 3.5 mg/dL (2.5-4.9)
[2020-06-01] MEDS ORDERED: FERROUS SULFAT325 MG PO (17:12)
[2020-06-01] MEDS ORDERED: ONDA4ODT MM (17:12)
== END 2020-06-01 17:31 | disposition home or self-care (01) ==
LOC: ER 15:08
PROVIDERS: Physician Assistant
DX: E88.09 Other disorders of plasma-protein metabolism, not elsewhere classified (principal); D50.9 Iron deficiency anemia, unspecified; R74.01 Elevation of levels of liver transaminase levels; Z79.899 Other long term (current) drug therapy; Z88.8 Allergy status to other drugs, medicaments and biological substances; I10 Essential (primary) hypertension; F17.210 Nicotine dependence, cigarettes, uncomplicated
CPT/HCPCS: 71045; 80053; 81003; 81025; 83540; 83550; 83735; 83880; 84100; 84484; 85025; 85610; 86850; 86900; 86901; 93005; 93010; 99285-25; G0480; J7030

== ENCOUNTER 2020-07-04 00:23 | Emergency (ER) | payer OTHER ==
[~2020-07-04] VITALS: Ht 167.6 cm; Wt 72.6 kg
[~2020-07-04 00:23] MED LIST changes: +FERROUS SULFAT325 MG PO
[2020-07-04 02:54] LABS: BASOPHILS ABSOLUTE AUTO 0.02 K/mm3 (0.00-0.23); BASOPHILS PERCENT AUTO 0 % (0-2); EOSINOPHILS ABSOLUTE AUTO 0.05 K/mm3 (0.00-0.68); EOSINOPHILS PERCENT AUTO 1 % (0-6); Hematocrit 28.6 % (33.0-51.0); Hemoglobin 9.2 g/dL (11.5-16.0); IMMATURE GRAN ABSOLUTE AUTO 0.04 K/mm3 (0.00-0.10); IMMATURE GRAN PERCENT AUTO 0 % (0-1); LYMPHOCYTES ABSOLUTE AUTO 1.52 K/mm3 (0.84-5.20); LYMPHOCYTES PERCENT AUTO 16 % (21-46); MONOCYTES ABSOLUTE AUTO 0.98 K/mm3 (0.16-1.47); MONOCYTES PERCENT AUTO 10 % (4-13); Mean Corpuscular HGB 33.2 pg (26.0-34.0); Mean Corpuscular HGB Conc 32.2 g/dL (31.5-36.5); Mean Corpuscular Volume 103 fL (80-100); NEUTROPHILS ABSOLUTE AUTO 6.89 K/mm3 (1.96-9.15); NEUTROPHILS PERCENT AUTO 73 % (41-73); RDW Coefficient Variation 21.3 % (11.7-14.2); RDW Standard Deviation 80.3 fL (35.1-46.3); Red Blood Cell Count 2.77 M/mm3 (3.80-5.20)
[2020-07-04 02:56] LABS: Mean Platelet Volume 13.9 fL (9.1-12.4); Platelet Count 48 K/mm3 (150-400)
[2020-07-04 03:07] LABS: International Normalized Ratio 1.13; Prothrombin Time Results 12.1 Sec (9.7-11.5)
[2020-07-04 03:11] LABS: Alanine Aminotransfer (ALT/SGP 43 U/L (12-78); Albumin, Blood 2.5 g/dL (3.4-5.0); Albumin/Globulin Ratio 0.5 (0.8-1.8); Alk Phos 518 U/L (50-136); Anion Gap 8 mmol/L (6-16); Aspartate Aminotrans (AST/SGOT 157 U/L (12-37); Bilirubin, Total 2.7 mg/dL (0.1-1.0); Blood Urea Nitrogen 5 mg/dL (8-24); Bun/Creatinine Ratio 9.8 (12.0-20.0); CO2, Blood 28 mmol/L (21-32); Calcium, Blood 8.2 mg/dL (8.5-10.1); Chloride, Blood 96 mmol/L (98-108); Creatinine, Blood 0.51 mg/dL (0.40-1.00); Globulin, Blood 4.9 g/dL (2.2-4.0); Glomerular Filtration Rate >60 (60-); Glucose, Blood 90 mg/dL (70-99); Potassium, Blood 3.7 mmol/L (3.5-5.5); Sodium, Blood 132 mmol/L (136-145); Total Protein, Blood 7.4 g/dL (6.4-8.2)
[2020-07-04 03:44] LABS: Ethanol (Alcohol), Blood, Med 213 mg/dL
[2020-08-12] MEDS ORDERED: FURO80 PO (15:36)
[2020-08-12] MEDS ORDERED: CONSTULOSE10 GM/155 PO (15:37)
[2020-08-12] MEDS ORDERED: Ventolin/Prove6.7 GM INH (15:38)
[2020-08-12] MEDS ORDERED: POTASSIUM PO (15:39)
[2020-08-12] MEDS ORDERED: SPIRONOLACTONE50 MG PO (15:40)
[2020-08-12] MEDS ORDERED: LEVE500 PO (15:46)
[2020-08-12] MEDS ORDERED: METO5 PO (15:46)
[2020-08-12] MEDS ORDERED: THERA-D2000 UNIT PO (15:46)
[2020-08-12] MEDS ORDERED: OXYC5 PO (15:47)
[2020-08-12] MEDS ORDERED: OMEPRAZOLE MAGN20 M1 PO (15:47)
== END 2020-07-04 05:00 | disposition home or self-care (01) ==
LOC: ER 00:23
PROVIDERS: Emergency Medicine
DX: F10.10 Alcohol abuse, uncomplicated (principal); K92.0 Hematemesis; G40.909 Epilepsy, unspecified, not intractable, without status epilepticus; I10 Essential (primary) hypertension; F17.210 Nicotine dependence, cigarettes, uncomplicated; Z88.8 Allergy status to other drugs, medicaments and biological substances; Z79.899 Other long term (current) drug therapy; Y90.7 Blood alcohol level of 200-239 mg/100 ml
CPT/HCPCS: 36415; 80053; 83690; 85025; 85610; 86850; 86900; 86901; 93005; 93010; 96374; 99285-25; C9113; G0480

== ENCOUNTER 2020-07-23 18:53 | Emergency (ER) | payer OTHER ==
[2020-07-23 20:58] LABS: BASOPHILS ABSOLUTE AUTO 0.02 K/mm3 (0.00-0.23); BASOPHILS PERCENT AUTO 0 % (0-2); EOSINOPHILS ABSOLUTE AUTO 0.14 K/mm3 (0.00-0.68); EOSINOPHILS PERCENT AUTO 1 % (0-6); Hematocrit 20.3 % (33.0-51.0); IMMATURE GRAN ABSOLUTE AUTO 0.08 K/mm3 (0.00-0.10); IMMATURE GRAN PERCENT AUTO 1 % (0-1); LYMPHOCYTES ABSOLUTE AUTO 1.24 K/mm3 (0.84-5.20); LYMPHOCYTES PERCENT AUTO 8 % (21-46); MONOCYTES ABSOLUTE AUTO 1.01 K/mm3 (0.16-1.47); MONOCYTES PERCENT AUTO 7 % (4-13); Mean Corpuscular HGB 36.1 pg (26.0-34.0); Mean Corpuscular HGB Conc 34.5 g/dL (31.5-36.5); Mean Corpuscular Volume 105 fL (80-100); Mean Platelet Volume 11.9 fL (9.1-12.4); NEUTROPHILS ABSOLUTE AUTO 12.93 K/mm3 (1.96-9.15); NEUTROPHILS PERCENT AUTO 84 % (41-73); Platelet Count 127 K/mm3 (150-400); RDW Coefficient Variation 26.1 % (11.7-14.2); RDW Standard Deviation 97.4 fL (35.1-46.3); Red Blood Cell Count 1.94 M/mm3 (3.80-5.20); White Blood Cell Count 15.42 K/mm3 (4.00-11.30)
[2020-07-23 21:01] LABS: International Normalized Ratio 1.17; Prothrombin Time Results 12.5 Sec (9.7-11.5)
[2020-07-23 22:18] LABS: Albumin, Blood 2.2 g/dL (3.4-5.0); Albumin/Globulin Ratio 0.5 (0.8-1.8); Bilirubin, Total 14.8 mg/dL (0.1-1.0); Bun/Creatinine Ratio 14.3 (12.0-20.0); Calcium, Blood 8.4 mg/dL (8.5-10.1); Creatinine, Blood 1.26 mg/dL (0.40-1.00); Globulin, Blood 4.7 g/dL (2.2-4.0); Potassium, Blood 4.1 mmol/L (3.5-5.5); Total Protein, Blood 6.9 g/dL (6.4-8.2)
[2020-07-23 22:37] LABS: Bun/Creatinine Ratio 13.5 (12.0-20.0); Creatinine, Blood 1.26 mg/dL (0.40-1.00); Potassium, Blood 3.5 mmol/L (3.5-5.5)
[2020-07-24 02:01] LABS: Blood, Urine 5+ (Neg); Glucose Qualitative, Urine 1+ (Neg); Ketones, Urine 1+ (Neg); Leukocyte Esterase, Urine 3+ (Neg); Nitrite, Urine Neg (Neg); Protein, Urine 1+ (Neg); Specific Gravity, Urine 1.015 (1.003-1.022); Urobilinogen, Urine 2+ (Normal)
[2020-07-24 02:02] LABS: Appearance, Urine Hazy (Clear); Bilirubin, Urine 2+ (Neg); Color, Urine Yellow (P-Yellow)
[2020-07-24 02:06] LABS: White Blood Cells, Urine TNTC /hpf (0-5)
[2020-07-24 02:07] LABS: Bacteria Many /hpf; Squamous Epithelial Cells Many /hpf (Few)
[2020-07-24 02:09] LABS: SARS-Cov-2 (COVID-19) PCR, MMC NEGATIVE (NEGATIVE)
[2020-08-12] MEDS ORDERED: FURO80 PO (15:36)
[2020-08-12] MEDS ORDERED: CONSTULOSE10 GM/155 PO (15:37)
[2020-08-12] MEDS ORDERED: Ventolin/Prove6.7 GM INH (15:38)
[2020-08-12] MEDS ORDERED: POTASSIUM PO (15:39)
[2020-08-12] MEDS ORDERED: SPIRONOLACTONE50 MG PO (15:40)
[2020-08-12] MEDS ORDERED: LEVE500 PO (15:46)
[2020-08-12] MEDS ORDERED: THERA-D2000 UNIT PO (15:46)
[2020-08-12] MEDS ORDERED: METO5 PO (15:46)
[2020-08-12] MEDS ORDERED: OXYC5 PO (15:47)
[2020-08-12] MEDS ORDERED: OMEPRAZOLE MAGN20 M1 PO (15:47)
== END 2020-07-24 02:00 | disposition short-term general hospital (02) ==
LOC: ER 18:53
PROVIDERS: Emergency Medicine
DX: E87.1 Hypo-osmolality and hyponatremia (principal); K92.2 Gastrointestinal hemorrhage, unspecified; D64.9 Anemia, unspecified; I10 Essential (primary) hypertension; E88.09 Other disorders of plasma-protein metabolism, not elsewhere classified; N17.9 Acute kidney failure, unspecified; E87.2 Acidosis; Z88.8 Allergy status to other drugs, medicaments and biological substances; Z20.822 Contact with and (suspected) exposure to COVID-19; Z79.899 Other long term (current) drug therapy
CPT/HCPCS: 36415; 36430; 74176; 80048; 80053; 81001; 82140; 82248; 82272; 82330; 83605; 83690; 83735; 84100; 85018; 85025; 85610; 85730; 86850; 86900; 86901; 86923; 87086; 94640; 96365; 96366; 96368; 99285-25; J0696; J7030; J7060; P9016; U0004

== ENCOUNTER 2020-09-03 14:54 | Day surgery (SDC) | payer OTHER ==
[~2020-09-03 14:54] MED LIST changes: +CONSTULOSE10 GM/155 PO; +FURO80 PO; +METO5 PO; +OMEPRAZOLE MAGN20 M1 PO; +POTASSIUM PO; +SPIRONOLACTONE50 MG PO; +THERA-D2000 UNIT PO; +Ventolin/Prove6.7 GM INH
== END 2020-09-03 22:50 | disposition home or self-care (01) ==
LOC: ATC 14:54 → US 09-10 15:00
DX: R18.8 Other ascites (principal); E87.70 Fluid overload, unspecified
CPT/HCPCS: 49083; 96365; P9046

== ENCOUNTER 2020-11-04 13:43 | Day surgery (SDC) | payer OTHER | END 2020-11-04 17:09 | disposition home or self-care (01) | LOC: ATC 13:43 → US 13:43 → ATC 17:09 | DX: E87.70 Fluid overload, unspecified (principal) | CPT/HCPCS: 49083; 96365; 96366; P9046 ==

== ENCOUNTER 2020-11-11 13:31 | Day surgery (SDC) | payer OTHER | END 2020-11-11 16:51 | disposition home or self-care (01) | LOC: ATC 13:31 → US 13:31 → ATC 16:51 | DX: E87.70 Fluid overload, unspecified (principal); I12.9 Hypertensive chronic kidney disease with stage 1 through stage 4 chronic kidney disease, or unspecified chronic kidney disease; N18.2 Chronic kidney disease, stage 2 (mild); D63.1 Anemia in chronic kidney disease; N25.81 Secondary hyperparathyroidism of renal origin; Z88.1 Allergy status to other antibiotic agents; Z88.8 Allergy status to other drugs, medicaments and biological substances | CPT/HCPCS: 49083; 96365; P9041; P9046 ==

== ENCOUNTER 2020-11-18 13:34 | Day surgery (SDC) | payer OTHER | END 2020-11-18 16:34 | disposition home or self-care (01) | LOC: ATC 13:34 → US 13:34 → ATC 16:34 | DX: E87.70 Fluid overload, unspecified (principal); R18.8 Other ascites | CPT/HCPCS: 49083; 96365; P9046 ==

== ENCOUNTER 2020-12-09 13:39 | Day surgery (SDC) | payer OTHER ==
[2020-12-12] MEDS ORDERED: Pepcid20 MG PO (21:39)
== END 2020-12-09 16:51 | disposition home or self-care (01) ==
LOC: ATC 13:39 → US 13:39 → ATC 16:51
DX: E87.70 Fluid overload, unspecified (principal); I12.9 Hypertensive chronic kidney disease with stage 1 through stage 4 chronic kidney disease, or unspecified chronic kidney disease; N18.2 Chronic kidney disease, stage 2 (mild); D63.1 Anemia in chronic kidney disease; F17.210 Nicotine dependence, cigarettes, uncomplicated
CPT/HCPCS: 49083; 96365; P9041; P9046

== ENCOUNTER 2020-12-25 15:08 | Inpatient (IN) | payer OTHER ==
[~2020-12-25] VITALS: Ht 157.5 cm; Wt 79.4 kg
[~2020-12-25 15:08] MED LIST changes: +Pepcid20 MG PO
[2020-12-25 15:41] LABS: BASOPHILS ABSOLUTE AUTO 0.03 K/mm3 (0.00-0.23); BASOPHILS PERCENT AUTO 1 % (0-2); EOSINOPHILS ABSOLUTE AUTO 0.09 K/mm3 (0.00-0.68); EOSINOPHILS PERCENT AUTO 2 % (0-6); Hematocrit 26.7 % (33.0-51.0); Hemoglobin 9.3 g/dL (11.5-16.0); IMMATURE GRAN ABSOLUTE AUTO 0.01 K/mm3 (0.00-0.10); IMMATURE GRAN PERCENT AUTO 0 % (0-1); LYMPHOCYTES ABSOLUTE AUTO 1.69 K/mm3 (0.84-5.20); LYMPHOCYTES PERCENT AUTO 27 % (21-46); MONOCYTES ABSOLUTE AUTO 0.72 K/mm3 (0.16-1.47); MONOCYTES PERCENT AUTO 12 % (4-13); Mean Corpuscular HGB 39.1 pg (26.0-34.0); Mean Corpuscular HGB Conc 34.8 g/dL (31.5-36.5); Mean Corpuscular Volume 112 fL (80-100); Mean Platelet Volume 11.1 fL (9.1-12.4); NEUTROPHILS ABSOLUTE AUTO 3.62 K/mm3 (1.96-9.15); NEUTROPHILS PERCENT AUTO 59 % (41-73); RDW Standard Deviation 57.4 fL (35.1-46.3); Red Blood Cell Count 2.38 M/mm3 (3.80-5.20); White Blood Cell Count 6.16 K/mm3 (4.00-11.30)
[2020-12-25 15:47] LABS: Platelet Count 26 K/mm3 (150-400)
[2020-12-25 16:03] LABS: Alanine Aminotransfer (ALT/SGP 33 U/L (12-78); Albumin/Globulin Ratio 0.6 (0.8-1.8); Alk Phos 170 U/L (50-136); Anion Gap 9 mmol/L (6-16); Aspartate Aminotrans (AST/SGOT 132 U/L (12-37); Bilirubin, Total 2.9 mg/dL (0.1-1.0); Blood Urea Nitrogen 6 mg/dL (8-24); Bun/Creatinine Ratio 9.5 (12.0-20.0); CO2, Blood 28 mmol/L (21-32); Calcium, Blood 8.6 mg/dL (8.5-10.1); Chloride, Blood 88 mmol/L (98-108); Creatinine, Blood 0.63 mg/dL (0.40-1.00); Globulin, Blood 4.8 g/dL (2.2-4.0); Glomerular Filtration Rate >60 (60-); Glucose, Blood 113 mg/dL (70-99); Potassium, Blood 3.7 mmol/L (3.5-5.5); Sodium, Blood 125 mmol/L (136-145); Total Protein, Blood 7.8 g/dL (6.4-8.2)
[2020-12-25 22:49] LABS: International Normalized Ratio 1.18; Prothrombin Time Results 12.3 Sec (9.7-11.5)
[2020-12-25] MEDS ORDERED: SPIR50 PO (23:55)
[2020-12-26] LABS: Influenza A, PCR NEGATIVE (NEGATIVE); Influenza B, PCR NEGATIVE (NEGATIVE); Resp Syncytial Virus, PCR NEGATIVE (NEGATIVE); SARS-Cov-2 (COVID-19) PCR, MMC NEGATIVE (NEGATIVE)
[2020-12-26 04:41] LABS: BASOPHILS ABSOLUTE AUTO 0.01 K/mm3 (0.00-0.23); BASOPHILS PERCENT AUTO 0 % (0-2); EOSINOPHILS ABSOLUTE AUTO 0.09 K/mm3 (0.00-0.68); EOSINOPHILS PERCENT AUTO 2 % (0-6); Hematocrit 22.6 % (33.0-51.0); Hemoglobin 7.8 g/dL (11.5-16.0); IMMATURE GRAN ABSOLUTE AUTO 0.01 K/mm3 (0.00-0.10); IMMATURE GRAN PERCENT AUTO 0 % (0-1); LYMPHOCYTES ABSOLUTE AUTO 1.28 K/mm3 (0.84-5.20); LYMPHOCYTES PERCENT AUTO 28 % (21-46); MONOCYTES ABSOLUTE AUTO 0.62 K/mm3 (0.16-1.47); MONOCYTES PERCENT AUTO 14 % (4-13); Mean Corpuscular HGB Conc 34.5 g/dL (31.5-36.5); Mean Corpuscular Volume 113 fL (80-100); Mean Platelet Volume 11.8 fL (9.1-12.4); NEUTROPHILS ABSOLUTE AUTO 2.54 K/mm3 (1.96-9.15); NEUTROPHILS PERCENT AUTO 56 % (41-73); RDW Standard Deviation 57.8 fL (35.1-46.3); White Blood Cell Count 4.55 K/mm3 (4.00-11.30)
[2020-12-26 04:46] LABS: Platelet Count 18 K/mm3 (150-400)
[2020-12-26 05:04] LABS: Alanine Aminotransfer (ALT/SGP 27 U/L (12-78); Albumin, Blood 2.5 g/dL (3.4-5.0); Albumin/Globulin Ratio 0.7 (0.8-1.8); Alk Phos 148 U/L (50-136); Anion Gap 9 mmol/L (6-16); Aspartate Aminotrans (AST/SGOT 100 U/L (12-37); Bilirubin, Total 2.8 mg/dL (0.1-1.0); Blood Urea Nitrogen 5 mg/dL (8-24); Bun/Creatinine Ratio 11.2 (12.0-20.0); CO2, Blood 28 mmol/L (21-32); Calcium, Blood 8.3 mg/dL (8.5-10.1); Chloride, Blood 92 mmol/L (98-108); Creatinine, Blood 0.45 mg/dL (0.40-1.00); Globulin, Blood 3.8 g/dL (2.2-4.0); Glomerular Filtration Rate >60 (60-); Glucose, Blood 80 mg/dL (70-99); Potassium, Blood 3.6 mmol/L (3.5-5.5); Sodium, Blood 129 mmol/L (136-145); Total Protein, Blood 6.3 g/dL (6.4-8.2)
--- NOTE | 2020-12-26 16:14 | NUR ---
PT OFF UNIT VIA GURNEY TO GI SUITE.
--- NOTE | 2020-12-26 16:38 | NUR ---
PATIENT WAS BROUGHT TO D/S FOR HER PROCEDURE.
--- NOTE | 2020-12-26 16:54 | NUR ---
12/26/20 7619 Zach Posada History, Chart, Medications and Allergies reviewed before start of procedure. EKG MONITORED DURING PROCEDURE. MONITOR INTACT WITH CONTINUOUS PULSE OXIMETRY AND INTERMITTENT BP. O2 VIA N/C INTACT THROUGHOUT SEDATION/PROCEDURE. Bite Block Placed, WILL REMOVE AFTER PROCEDURE. See Anesthesia record/DR CHAUDHRY.
--- NOTE | 2020-12-26 19:29 | NUR ---
SHIFT SUMMARY: CIWA SCORE 6-11 TODAY; MEDICATED PER EMAR, STILL QUITE TREMULOUS. GAIT IS VERY WEAK AND PT FORGETS LIMITATIONS. HAD UPPER ENDOSCOPY TODAY, TOLERATED WELL. HAD BM THIS MORNING, NO MELENA. NO OVERT SIGNS OF BLEEDING. PLATELETS ARE ORDERED FOR PARACENTESIS TOMORROW. DENIES PAIN.
[2020-12-27 04:30] LABS: Hematocrit 21.4 % (33.0-51.0); Hemoglobin 7.3 g/dL (11.5-16.0); Mean Corpuscular HGB 38.8 pg (26.0-34.0); Mean Corpuscular HGB Conc 34.1 g/dL (31.5-36.5); Mean Corpuscular Volume 114 fL (80-100); Mean Platelet Volume 12.9 fL (9.1-12.4); RDW Coefficient Variation 14.1 % (11.7-14.2); RDW Standard Deviation 58.1 fL (35.1-46.3); Red Blood Cell Count 1.88 M/mm3 (3.80-5.20); White Blood Cell Count 4.41 K/mm3 (4.00-11.30)
[2020-12-27 04:51] LABS: Platelet Count 18 K/mm3 (150-400)
[2020-12-27 05:10] LABS: Anion Gap 9 mmol/L (6-16); Blood Urea Nitrogen 10 mg/dL (8-24); Bun/Creatinine Ratio 19.5 (12.0-20.0); CO2, Blood 29 mmol/L (21-32); Chloride, Blood 90 mmol/L (98-108); Creatinine, Blood 0.51 mg/dL (0.40-1.00); Glomerular Filtration Rate >60 (60-); Glucose, Blood 78 mg/dL (70-99); Magnesium, Blood 1.6 mg/dL (1.6-2.4); Potassium, Blood 3.5 mmol/L (3.5-5.5); Sodium, Blood 128 mmol/L (136-145)
[2020-12-27 11:31] LABS: Mean Platelet Volume 11.4 fL (9.1-12.4)
[2020-12-27 12:04] LABS: Platelet Count 38 K/mm3 (150-400)
--- NOTE | 2020-12-27 12:19 | NUR ---
MAY IN ULTRASOUND NOTIFIED OF PLATELET COUNT OF 38. SHE WILL NOTIFY RADIOLOGY AND CALL BACK WITH PLAN.
--- NOTE | 2020-12-27 12:29 | NUR ---
DR. PAL NOTIFIED OF CRITICAL PLATELET LEVEL 38/ RADIOLOGY UNABLE TO COMPLETED PARACENTESIS. ORDER RECEIVED TO TRANSFUSE ONE UNIT OF PLATELETS. ORDER PROCESSED.
[2020-12-27 15:57] LABS: Mean Platelet Volume 12.2 fL (9.1-12.4)
[2020-12-27 15:58] LABS: Platelet Count 26 K/mm3 (150-400)
--- NOTE | 2020-12-27 18:05 | NUR ---
SHIFT SUMMARY: PT A/O X 3 IND IN ROOM TODAY. PT HAD TREMORS TO HANDS WHICH IMPROVED THROUGHOUT THE DAY. PT WAS AGITATED ON AND OFF ALL DAY. PT WAS TRANSFUSED WITH 3 UNITS OF PLATELETS WITH FINAL PLATELET COUNT OF 26. PT BECAME VISUALLY UPSET EVIDENCED BY THROWING HER CELL PHONE AND WATER ACROSS THE ROOM HITTING THE WALL WHEN SHE WAS INFORMED SHE WAS NOT ABLE TO GET HER PARACENTESIS PROCEDURE DUE TO PLATELET COUNT TOO LOW. DISCUSSED CONCERNS WITH PT AND PT CALMED DOWN. HER FRIEND WAS ALSO IN ROOM WITH HER AND HE ASSISTED WITH CALMING HER DOWN. PT DID SAY SHE WOULD LEAVE AMA BUT ULTIMATELY DID NOT FOLLOW THROUGH WITH THIS PLAN. PT TO BE MOVED TO ROOM 344 AND SHE WAS INFORMED OF THIS. OFFERED TO SEE IF DR. PAL COULD COME TALK TO HER BUT SHE DECLINED OFFER.
--- NOTE | 2020-12-28 03:17 | NUR ---
PT RESTING IN BED. RESP UNLABORED. ANXIOUS AND IMPULSIVE AT TIMES. ATIVAN PRN GIVEN WITH GOOD EFFECT. ABD LARGE AND FIRM. DENIES PAIN. IVF INFUSING. MEDS PER MAR. TOLERATING PO INTAKE. CALL LIGHT WITHIN REACH. NO CHANGE IN CONDITION NOTED.
[2020-12-28 05:03] LABS: Hematocrit 20.8 % (33.0-51.0); Hemoglobin 7.2 g/dL (11.5-16.0); Mean Corpuscular HGB 38.3 pg (26.0-34.0); Mean Corpuscular HGB Conc 34.6 g/dL (31.5-36.5); Mean Corpuscular Volume 111 fL (80-100); Mean Platelet Volume 12.8 fL (9.1-12.4); RDW Coefficient Variation 13.7 % (11.7-14.2); RDW Standard Deviation 55.2 fL (35.1-46.3); Red Blood Cell Count 1.88 M/mm3 (3.80-5.20); White Blood Cell Count 3.22 K/mm3 (4.00-11.30)
[2020-12-28 05:17] LABS: Platelet Count 25 K/mm3 (150-400)
--- NOTE | 2020-12-28 05:55 | NUR ---
CRITICAL VALUE OF PLATELET [address] JON CALLED. MESSAGE LEFT BY OTHER NURSE. ROUSTABOUT HEAD NOTIFIED. AWAITING REPLY. PT IN BED WITHOUT DISTRESS. NO SIGNS OF BLEEDING NOTED.
[2020-12-28 05:57] LABS: Anion Gap 10 mmol/L (6-16); Blood Urea Nitrogen 8 mg/dL (8-24); Bun/Creatinine Ratio 17.4 (12.0-20.0); CO2, Blood 29 mmol/L (21-32); Calcium, Blood 8.7 mg/dL (8.5-10.1); Chloride, Blood 88 mmol/L (98-108); Creatinine, Blood 0.46 mg/dL (0.40-1.00); Glomerular Filtration Rate >60 (60-); Glucose, Blood 156 mg/dL (70-99); Potassium, Blood 2.9 mmol/L (3.5-5.5); Sodium, Blood 127 mmol/L (136-145)
--- NOTE | 2020-12-28 06:32 | NUR ---
SPOKE WITH DR BIGGS RE PLATELETS OF 25, ORDERS TO CONTINUE TO MONITOR FOR NOW. WILL LET PRIMARY RN KNOW.
[2020-12-28 08:21] LABS: Albumin, Blood 2.6 g/dL (3.4-5.0)
[2020-12-28 13:00] LABS: BASOPHILS ABSOLUTE AUTO 0.01 K/mm3 (0.00-0.23); BASOPHILS PERCENT AUTO 0 % (0-2); EOSINOPHILS PERCENT AUTO 0 % (0-6); IMMATURE GRAN ABSOLUTE AUTO 0.04 K/mm3 (0.00-0.10); IMMATURE GRAN PERCENT AUTO 1 % (0-1); LYMPHOCYTES ABSOLUTE AUTO 0.17 K/mm3 (0.84-5.20); LYMPHOCYTES PERCENT AUTO 4 % (21-46); MONOCYTES ABSOLUTE AUTO 0.29 K/mm3 (0.16-1.47); MONOCYTES PERCENT AUTO 6 % (4-13); Mean Corpuscular HGB 38.8 pg (26.0-34.0); Mean Corpuscular HGB Conc 34.8 g/dL (31.5-36.5); Mean Corpuscular Volume 112 fL (80-100); Mean Platelet Volume 12.3 fL (9.1-12.4); NEUTROPHILS ABSOLUTE AUTO 4.28 K/mm3 (1.96-9.15); NEUTROPHILS PERCENT AUTO 89 % (41-73); RDW Coefficient Variation 13.8 % (11.7-14.2); RDW Standard Deviation 55.8 fL (35.1-46.3); Red Blood Cell Count 2.06 M/mm3 (3.80-5.20); White Blood Cell Count 4.79 K/mm3 (4.00-11.30)
[2020-12-28 13:26] LABS: Platelet Count 33 K/mm3 (150-400)
[2020-12-28] MEDS ORDERED: KLOR-CON 1010 ME5 PO (15:53)
--- NOTE | 2020-12-28 18:29 | NUR ---
PT GOT 3 UNITS OF PLATELET BUT PT ONL RECEIVED 1 UNIT BECAUSE [facility] WAS OUT OF PLATELET.PT HAS NO ACUTE EVENTS T/O THIS SHIFT.PT IS DISCHARGE HOME, AT BEDSIDE,GO OVER THE DISCHARGE SUMMARY BOTH OF THEM VERBALIZED UNDERSTANDING OF THE DISCHARGE AND PT STATED THAT SHE HAS AN APPOINTMENT ON Wednesday12/30/20 FOR A PARACENTESIS.PT ON ROOM AIR DENIES PAIN,N/V,SOB.PT TRNSPORT VIA WHEELCHAIR AND TOOK ALL BELONGINGS.
== END 2020-12-28 16:13 | disposition home or self-care (01) | DRG 813 ==
LOC: ER 15:08 → MEDS 18:42
PROVIDERS: Internal Medicine; Internal Medicine Gastroenterology; Physician Assistant; ADMIT Internal Medicine
PROC: 3E02340 Introduction of Influenza Vaccine into Muscle, Percutaneous Approach (ICD-10-PCS; principal; 2020-12-25)
PROC: 0DJ08ZZ Inspection of Upper Intestinal Tract, Via Natural or Artificial Opening Endoscopic (ICD-10-PCS; 2020-12-26)
PROC: 30233R1 Transfusion of Nonautologous Platelets into Peripheral Vein, Percutaneous Approach (ICD-10-PCS; 2020-12-28)
DX: D69.6 Thrombocytopenia, unspecified (principal); K92.2 Gastrointestinal hemorrhage, unspecified; E87.1 Hypo-osmolality and hyponatremia; F10.239 Alcohol dependence with withdrawal, unspecified; K70.31 Alcoholic cirrhosis of liver with ascites; D68.9 Coagulation defect, unspecified; D64.9 Anemia, unspecified; E87.6 Hypokalemia; Z20.822 Contact with and (suspected) exposure to COVID-19; I10 Essential (primary) hypertension; Z79.899 Other long term (current) drug therapy; Z88.1 Allergy status to other antibiotic agents; Z88.8 Allergy status to other drugs, medicaments and biological substances; K72.10 Chronic hepatic failure without coma; G40.909 Epilepsy, unspecified, not intractable, without status epilepticus; F43.10 Post-traumatic stress disorder, unspecified; F32.A Depression, unspecified; F41.9 Anxiety disorder, unspecified; G89.29 Other chronic pain; R10.9 Unspecified abdominal pain; Z98.890 Other specified postprocedural states; F17.210 Nicotine dependence, cigarettes, uncomplicated; E55.9 Vitamin D deficiency, unspecified; F12.90 Cannabis use, unspecified, uncomplicated
CPT/HCPCS: 0241U; 36415; 36430; 76705; 80048; 80053; 82040; 82105; 83615; 83690; 83735; 85018; 85025; 85027; 85049; 85610; 86900; 86901; 93005; 93010; 94760; 96365; 99285-25; A9270; J0696; J1940; J2060; J2560; J2704; J2930; J3480; J7030; J7050; J7120; P9035; P9053

== ENCOUNTER 2020-12-30 13:46 | Day surgery (SDC) | payer OTHER ==
[~2020-12-30 13:46] MED LIST changes: +KLOR-CON 1010 ME5 PO; +SPIR50 PO
== END 2020-12-30 16:56 | disposition home or self-care (01) ==
LOC: ATC 13:46 → US 13:46 → ATC 16:56
DX: E87.70 Fluid overload, unspecified (principal); R18.8 Other ascites
CPT/HCPCS: 49083; P9046

== ENCOUNTER 2021-01-12 11:32 | Inpatient (IN) | payer OTHER ==
[~2021-01-12] VITALS: Ht 157.5 cm; Wt 80.7 kg
[~2021-01-12 11:32] MED LIST changes: +ALDACTONE100 MG PO; -FURO80 PO; -KLOR-CON 1010 ME5 PO; -SPIR50 PO
[2021-01-12 13:00] LABS: International Normalized Ratio 1.37; Prothrombin Time Results 14.1 Sec (9.7-11.5)
[2021-01-12 13:28] LABS: Ethanol (Alcohol), Blood, Med <3 mg/dL
[2021-01-12 13:30] LABS: BASOPHILS ABSOLUTE AUTO 0.01 K/mm3 (0.00-0.23); BASOPHILS PERCENT AUTO 0 % (0-2); EOSINOPHILS ABSOLUTE AUTO 0.05 K/mm3 (0.00-0.68); EOSINOPHILS PERCENT AUTO 0 % (0-6); Hematocrit 21.7 % (33.0-51.0); IMMATURE GRAN ABSOLUTE AUTO 0.19 K/mm3 (0.00-0.10); IMMATURE GRAN PERCENT AUTO 2 % (0-1); LYMPHOCYTES ABSOLUTE AUTO 0.63 K/mm3 (0.84-5.20); LYMPHOCYTES PERCENT AUTO 6 % (21-46); MONOCYTES ABSOLUTE AUTO 0.76 K/mm3 (0.16-1.47); MONOCYTES PERCENT AUTO 7 % (4-13); Mean Corpuscular Volume 95 fL (80-100); NEUTROPHILS PERCENT AUTO 85 % (41-73); Platelet Count 68 K/mm3 (150-400); RDW Coefficient Variation 15.1 % (11.7-14.2); RDW Standard Deviation 52.4 fL (35.1-46.3); Red Blood Cell Count 2.29 M/mm3 (3.80-5.20); White Blood Cell Count 11.24 K/mm3 (4.00-11.30)
[2021-01-12 13:31] LABS: Hemoglobin 8.3 g/dL (11.5-16.0); Mean Corpuscular HGB 36.2 pg (26.0-34.0); Mean Corpuscular HGB Conc 38.2 g/dL (31.5-36.5)
[2021-01-12 13:33] LABS: Alanine Aminotransfer (ALT/SGP 38 U/L (12-78); Albumin, Blood 2.9 g/dL (3.4-5.0); Albumin/Globulin Ratio 0.8 (0.8-1.8); Alk Phos 124 U/L (50-136); Anion Gap Unable to Calculate mmol/L (6-16); Aspartate Aminotrans (AST/SGOT 153 U/L (12-37); Bilirubin, Total 5.5 mg/dL (0.1-1.0); Blood Urea Nitrogen 7 mg/dL (8-24); Bun/Creatinine Ratio 16.4 (12.0-20.0); CO2, Blood 42 mmol/L (21-32); Calcium, Blood 9.2 mg/dL (8.5-10.1); Chloride, Blood <50 mmol/L (98-108); Creatinine, Blood 0.43 mg/dL (0.40-1.00); Globulin, Blood 3.8 g/dL (2.2-4.0); Glomerular Filtration Rate >60 (60-); Glucose, Blood 109 mg/dL (70-99); Potassium, Blood 2.2 mmol/L (3.5-5.5); Sodium, Blood 100 mmol/L (136-145); Total Protein, Blood 6.7 g/dL (6.4-8.2)
[2021-01-12 14:55] LABS: Influenza A, PCR NEGATIVE (NEGATIVE); Influenza B, PCR NEGATIVE (NEGATIVE); Resp Syncytial Virus, PCR NEGATIVE (NEGATIVE); SARS-Cov-2 (COVID-19) PCR, MMC NEGATIVE (NEGATIVE)
[2021-01-12 16:46] LABS: Magnesium, Blood 1.3 mg/dL (1.6-2.4)
[2021-01-12 16:49] LABS: Phosphorus, Blood 1.9 mg/dL (2.5-4.9); Thyroid Stimulating Hormone 2.87 uIU/mL (0.360-4.800)
[2021-01-12 17:16] LABS: Albumin, Blood 3.1 g/dL (3.4-5.0); Anion Gap Unable to Calculate mmol/L (6-16); Blood Urea Nitrogen 7 mg/dL (8-24); Bun/Creatinine Ratio 17.5 (12.0-20.0); CO2, Blood 40 mmol/L (21-32); Chloride, Blood <50 mmol/L (98-108); Ferritin, Serum 228 ng/mL (8-252); Glomerular Filtration Rate >60 (60-); Glucose, Blood 106 mg/dL (70-99); Iron Serum 53 ug/dL (50-170); Magnesium, Blood 1.3 mg/dL (1.6-2.4); Percent Saturation 24.2 % (15.0-50.0); Phosphorus, Blood 1.9 mg/dL (2.5-4.9); Potassium, Blood 2.1 mmol/L (3.5-5.5); Sodium, Blood 101 mmol/L (136-145); Total Iron Binding Capacity 219 ug/dL (250-450); Uric Acid, Blood 5.5 mg/dL (2.6-6.0)
--- NOTE | 2021-01-12 17:27 | NUR ---
ASSUMPTION OF CARE: PATIENT ARRIVED FROM ED AT 1600. PATIENT RECEIVED BED BATH UPON ADMIT. SCATTERED BRUISING ON BILATERAL ARMS, BACK, STOMACH, BILATERAL KNEES AND SHINS, INNER THIGHS, BUTTOCKS, RECTAL AREA. PATIENT STATED "WEDNESDAY AND WEDNESDAYS" WERE HOW SHE GOT THE BRUISES AND THAT SHE HAS BEEN FALLING MORE THE LAST FEW DAYS. PATIENT CONFUSED AND AGITATED, PULLING AT IV. CIWA 7. OCONNOR CATHETER PLACED PER ORDERS AND UA SENT TO LAB. SEIZURE PRECAUTIONS IN PLACE AND SOFT WRIST RESTRAINTS ATTACHED TO BED BUT NOT PATIENT. FIANCE AT BEDSIDE COMFORTING PATIENT. PATIENT POOR HISTORIAN. FIANCE STATES THEY'VE BEEN EATING A LOW SODIUM DIET AND JUICING FRUITS AND VEGETABLES FROM RECIPES FOUND ON INTERNET FOR LIVER FAILURE DIET B/C GARAGE SUPERVISOR WAS NOT HELPFUL. PHARMACY STATED PATIENT NEEDS A CENTRAL LINE FOR 3% SALINE DRIP. PATIENT TRANSFERRED TO ICU AT 1728. CHARGE SHORTY RN GAVE REPORT TO ICU NURSE.
[2021-01-12 17:34] LABS: Osmolality, Serum 207 mos/KG (275-300)
[2021-01-12 17:45] LABS: Source, Urine Catheter
[2021-01-12 17:56] LABS: Appearance, Urine Clear (Clear); Bilirubin, Urine Neg (Neg); Blood, Urine 1+ (Neg); Color, Urine Yellow (P-Yellow); Glucose Qualitative, Urine Neg (Neg); Ketones, Urine 1+ (Neg); Leukocyte Esterase, Urine Neg (Neg); Nitrite, Urine Neg (Neg); Protein, Urine 1+ (Neg); Urobilinogen, Urine 1+ (Normal)
[2021-01-12 17:59] LABS: PCO2 Arterial 49.9 mmHg (35-45); PO2 Arterial 18 mmHg (80-100); pH Blood Arterial 7.61 (7.35-7.45)
[2021-01-12 18:19] LABS: Bacteria Few /hpf
[2021-01-12 18:20] LABS: Red Blood Cells, Urine Rare /hpf (0-2); Squamous Epithelial Cells Few /hpf (Few); White Blood Cells, Urine Rare /hpf (0-5)
[2021-01-12 18:21] LABS: U Amphetamine Screen Not Detected; U Barbituate Screen DETECTED; U Benzodiazapine Screen DETECTED; U Buprenorphine Screen Not Detected; U Cannabinoids Screen DETECTED; U Cocaine Screen Not Detected; U Methadone Screen Not Detected; U Methamphetamine Screen Not Detected; U Opiates Screen Not Detected; U Oxycodone Screen Not Detected; U Phencyclidine Screen Not Detected; U Propoxyphene Screen Not Detected
--- NOTE | 2021-01-12 18:37 | NUR ---
ASSUMED CARE PT ARRIVED TO ICU ROOM 1 AT 1725 VIA BED. PT IS ALERT, BUT CONFUSED AND THRASHING AROUND IN THE BED. PT TRANSFERED TO ICU BED. PT WITH CONTINUED ATTEMPTS TO PULL AT LINES/TUBES, PT PLACED IN SBW RESTRAINTS. VITAL SIGNS STABLE UPON ARRIVAL, PT ON ROOM AIR. PICC PLACED TO BRIANDA. 3% NS INFUSING VIA PICC AT 25 ML/HR. MULTIPLE ELECTROLYE REPLACEMENTS INFUSING, SEE EMAR FOR MORE INFO. PT WITH OCONNOR IN PLACE WITH DARK YELLOW URINE OUTPUT NOTED. DR LOTT BY TO SEE PT AND UPDATED TO ALL LABS. WILL CONTINUE TO MONITOR AND REPORT OFF TO ONCOMING RN.
--- NOTE | 2021-01-12 20:16 | NUR ---
ASSUMED PT CARE FROM RA LR AT 1900 PT LYING IN BED; OPENS EYES TO VERBAL STIMULI. FOLLOWS COMMANDS. ALERT TO SELF, CITY, FAMILY, AND SURROUNDINGS. BECOMES IRRITABLE AT TIMES D/T RESTRAINTS; HOWEVER, PT CONTINUES TO PULL AT LINES AND MEDICAL EQUIPMENT. CONTINUOUS REDIRECTION NEEDED. CIWA OF 10 IN WHICH PT WAS MEDICATED WITH LIBRIUM PER ORDERS. 3% SALINE INFUSING AT 25MLS/HR, BANANA BAG AT 200MLS/HR, AND SODIUM PHOSPHATE AT 100MLS/HR VIA PICC TO BRIANDA; NS AT 50MLS/HR VIA POWERGLIDE TO TIARA; AND NS TKO VIA L AC IV. OCONNOR CATHETER IS PATENT AND DRAINING BRODY COLORED URINE TO GRAVITY. ASCITES NOTED TO ABDOMEN; SOFT, AND NON TENDER TO PALPATION WITH HYPOACTIVE BT. PT ABLE TO SWALLOW MEDS WHOLE WITH WATER WITH OCCASIONAL COUGHING EPISODES. SHE REQUIRES SMALL SIPS WITH ONE PILL AT A TIME; LOTS OF CUEING REQUIRED WELL. SEE SHIFT SUMMARY FOR FURTHER DETAILS.
--- NOTE | 2021-01-13 04:49 | NUR ---
END OF SHIFT SUMMARY PT MEDICATED X3 THIS SHIFT R/T CIWA >10. PT REMAINED PLEASANTLY CONFUSED, BUT RESTLESS NONETHELESS. PT IS CURRENTLY SLEEPING; ABLE TO SHIFT OWN WEIGHT/REPOSITION. 3% SALINE REMAINS INFUSING AT 25MLS/HR WITH SODIUM LEVELS SLOWLY INCREASING; POTASSIUM IS CURRENTLY BEING REPLACED WITH A TOTAL OF 60MEQ AT THIS TIME WITH A RECHECK AFTER INFUSION IS COMPLETE. OCONNOR IS PATENT AND DRAINING LARGE AMOUNTS OF CLEAR, BRODY COLORED URINE TO GRAVITY; 2200 ACCOUNTED FOR THIS SHIFT. WILL CONTINUE TO MONITOR UNTIL REPORT IS HANDED OFF TO ONCOMING RN.
[2021-01-13 06:22] LABS: Hematocrit 22.1 % (33.0-51.0); Mean Corpuscular Volume 97 fL (80-100); RDW Coefficient Variation 14.9 % (11.7-14.2); RDW Standard Deviation 52.7 fL (35.1-46.3); Red Blood Cell Count 2.29 M/mm3 (3.80-5.20)
[2021-01-13 06:23] LABS: Hemoglobin 8.4 g/dL (11.5-16.0); Mean Corpuscular HGB 36.7 pg (26.0-34.0); Mean Platelet Volume 11.7 fL (9.1-12.4); Platelet Count 71 K/mm3 (150-400); White Blood Cell Count 8.26 K/mm3 (4.00-11.30)
[2021-01-13 06:49] LABS: Alanine Aminotransfer (ALT/SGP 41 U/L (12-78); Albumin, Blood 2.6 g/dL (3.4-5.0); Albumin/Globulin Ratio 0.8 (0.8-1.8); Alk Phos 115 U/L (50-136); Aspartate Aminotrans (AST/SGOT 178 U/L (12-37); Blood Urea Nitrogen 4 mg/dL (8-24); Bun/Creatinine Ratio 11.1 (12.0-20.0); CO2, Blood 38 mmol/L (21-32); Calcium, Blood 8.1 mg/dL (8.5-10.1); Chloride, Blood 60 mmol/L (98-108); Creatinine, Blood 0.36 mg/dL (0.40-1.00); Globulin, Blood 3.4 g/dL (2.2-4.0); Glomerular Filtration Rate >60 (60-); Glucose, Blood 112 mg/dL (70-99); Magnesium, Blood 1.6 mg/dL (1.6-2.4); Phosphorus, Blood 2.4 mg/dL (2.5-4.9)
[2021-01-13 06:51] LABS: Anion Gap 14 mmol/L (6-16); Potassium, Blood 2.3 mmol/L (3.5-5.5); Sodium, Blood 112 mmol/L (136-145)
[2021-01-13 07:01] LABS: BAND PERCENT MAN 10 % (0-8); BASOPHILS PERCENT MAN 0 % (0-2); EOSINOPHILS ABSOLUTE MAN 0.08 K/mm3 (0.00-0.68); EOSINOPHILS PERCENT MAN 1 % (0-6); LYMPHOCYTES ABSOLUTE MAN 0.49 K/mm3 (0.84-5.20); LYMPHOCYTES PERCENT MAN 6 % (21-46); MONOCYTES ABSOLUTE MAN 0.41 K/mm3 (0.16-1.47); MONOCYTES PERCENT MAN 5 % (4-13); NEUTROPHILS ABSOLUTE MAN 7.26 K/mm3 (1.96-9.15); SEG NEUTROPHILS PERCENT MAN 78 % (41-73); TOTAL CELLS COUNTED 100
[2021-01-13 18:38] LABS: Albumin, Blood 2.2 g/dL (3.4-5.0); Anion Gap 7 mmol/L (6-16); Blood Urea Nitrogen 3 mg/dL (8-24); Bun/Creatinine Ratio 10.9 (12.0-20.0); CO2, Blood 35 mmol/L (21-32); Calcium, Blood 7.8 mg/dL (8.5-10.1); Chloride, Blood 87 mmol/L (98-108); Creatinine, Blood 0.28 mg/dL (0.40-1.00); Glomerular Filtration Rate >60 (60-); Glucose, Blood 114 mg/dL (70-99); Phosphorus, Blood 1.9 mg/dL (2.5-4.9)
[2021-01-13 18:53] LABS: Sodium, Blood 129 mmol/L (136-145)
--- NOTE | 2021-01-13 19:30 | NUR ---
ASSESSMENT/ASSUMED CARE PT RESTING QUIETLY, AWAKENS EASILY TO VERBAL STIMULI. FOLLOWING INSTRUCTIONS. SPEECH SLOW AND SLURRED AT TIMES. A&O TO SELF AND PLACE. LUNGS COARSE AND DECREASED ON 2 LITER O2 VIA NC. RESP RATE REGULAR AND NONLABORED. HEART RATE REGULAR IN THE 80'S. BP STABLE. BT+HYPOACTIVE. ABD ROUND AND NONTENDER. SKIN JAUNDICE WITH MULTIPLE BRUISES NOTED TO ALL EXT. PT REPORTS THAT SHE HAS BEEN FALLING A LOT AT HOME. OCONNOR CATH PATENT DRAINING YELLOW/BRODY URINE. IV 20G TO LEFT AC, SALINE LOCKED, SITE CLEAR AND FLUSHED WITHOUT DIFFICULTY. POWER GLIDE TO LEFT UPPER ARM WITH D5 AT 50 ML/HR AND KCL RIDER STARTED. SITE CLEAR AND DRSG INTACT. FLUSHED WITHOUT DIFFICULTY. PICC LINE TO RIGHT UPPER ARM SALINE LOCKED. FLUSHED WITHOUT DIFFICULTY. SITE CLEAR AND DRSG INTACT. PT TURNING AND MOVING SELF IN BED. BED ALARM ON. PT BACK TO SLEEP QUICKLY WHEN UNDISTURBED.
[2021-01-13 22:01] LABS: Magnesium, Blood 1.5 mg/dL (1.6-2.4)
[2021-01-13 22:10] LABS: Albumin, Blood 2.5 g/dL (3.4-5.0); Anion Gap 12 mmol/L (6-16); Blood Urea Nitrogen 4 mg/dL (8-24); Bun/Creatinine Ratio 11.3 (12.0-20.0); CO2, Blood 37 mmol/L (21-32); Calcium, Blood 8.2 mg/dL (8.5-10.1); Chloride, Blood 68 mmol/L (98-108); Creatinine, Blood 0.36 mg/dL (0.40-1.00); Glomerular Filtration Rate >60 (60-); Glucose, Blood 114 mg/dL (70-99); Phosphorus, Blood 2.1 mg/dL (2.5-4.9); Potassium, Blood 2.4 mmol/L (3.5-5.5)
[2021-01-13 22:11] LABS: Sodium, Blood 117 mmol/L (136-145)
--- NOTE | 2021-01-13 22:13 | NUR ---
LABS CALLED CRITICAL LABS TO DR LOTT. RECEIVED ORDERS TO STOP D5 AND RESTART 3% NA AT 20 ML/HR, GIVE 10 MMOL KPHOS, AND 1 GM MAG. ALSO, REDRAW NA LEVEL 2HRS AFTER RESTARTING 3% NA. CONT KCL INFUSION FOR TOTAL OF 80 MEQ AND DRAW LABS AFTER INFUSION.
[2021-01-14 04:01] LABS: BASOPHILS ABSOLUTE AUTO 0.01 K/mm3 (0.00-0.23); BASOPHILS PERCENT AUTO 0 % (0-2); EOSINOPHILS ABSOLUTE AUTO 0.06 K/mm3 (0.00-0.68); EOSINOPHILS PERCENT AUTO 1 % (0-6); Hematocrit 21.4 % (33.0-51.0); Hemoglobin 7.8 g/dL (11.5-16.0); IMMATURE GRAN ABSOLUTE AUTO 0.02 K/mm3 (0.00-0.10); IMMATURE GRAN PERCENT AUTO 0 % (0-1); LYMPHOCYTES ABSOLUTE AUTO 0.85 K/mm3 (0.84-5.20); LYMPHOCYTES PERCENT AUTO 16 % (21-46); MONOCYTES PERCENT AUTO 9 % (4-13); Mean Corpuscular HGB 36.8 pg (26.0-34.0); Mean Corpuscular HGB Conc 36.4 g/dL (31.5-36.5); Mean Corpuscular Volume 101 fL (80-100); Mean Platelet Volume 9.9 fL (9.1-12.4); NEUTROPHILS ABSOLUTE AUTO 3.94 K/mm3 (1.96-9.15); NEUTROPHILS PERCENT AUTO 73 % (41-73); Platelet Count 76 K/mm3 (150-400); RDW Standard Deviation 55.6 fL (35.1-46.3); Red Blood Cell Count 2.12 M/mm3 (3.80-5.20); White Blood Cell Count 5.38 K/mm3 (4.00-11.30)
[2021-01-14 04:42] LABS: Alanine Aminotransfer (ALT/SGP 37 U/L (12-78); Albumin, Blood 2.3 g/dL (3.4-5.0); Albumin/Globulin Ratio 0.7 (0.8-1.8); Alk Phos 112 U/L (50-136); Amylase, Blood 76 U/L (25-115); Aspartate Aminotrans (AST/SGOT 139 U/L (12-37); Bilirubin, Direct 2.4 mg/dL (0.0-0.3); Bilirubin, Indirect 1.3 mg/dL (0.1-0.7); Bilirubin, Total 3.7 mg/dL (0.1-1.0); Blood Urea Nitrogen 3 mg/dL (8-24); Bun/Creatinine Ratio 7.6 (12.0-20.0); CO2, Blood 35 mmol/L (21-32); Calcium, Blood 8.2 mg/dL (8.5-10.1); Chloride, Blood 73 mmol/L (98-108); Globulin, Blood 3.2 g/dL (2.2-4.0); Glomerular Filtration Rate >60 (60-); Glucose, Blood 96 mg/dL (70-99); Magnesium, Blood 1.8 mg/dL (1.6-2.4); Phosphorus, Blood 2.5 mg/dL (2.5-4.9); Potassium, Blood 2.9 mmol/L (3.5-5.5); Total Protein, Blood 5.5 g/dL (6.4-8.2)
[2021-01-14 04:49] LABS: Anion Gap 11 mmol/L (6-16); Sodium, Blood 119 mmol/L (136-145)
--- NOTE | 2021-01-14 06:32 | NUR ---
SHIFT SUMMARY PT RESTING QUIETLY. AWAKENS EASILY TO VERBAL STIMULI. ON 2 LITER O2 WHILE SLEEPING DUE TO SLEEP APNEA AND SPO2 DOWN INTO THE 80'S. VSS. PT MOVING AND TURNING SELF IN BED. PT ON 3% NA AT 20 ML/HR. LAST NA UP TO 119. PT RECEIVING K PHOS AND KCL. F/U LABS FOR NA AT 0800 AND K AFTER KCL COMPLETE. BED ALARM ON. ANASTASIA PAUL PATENT. REPORT TO ON COMING NURSE
[2021-01-14 14:24] LABS: Albumin, Blood 2.3 g/dL (3.4-5.0); Anion Gap 11 mmol/L (6-16); Blood Urea Nitrogen 4 mg/dL (8-24); Bun/Creatinine Ratio 10.6 (12.0-20.0); CO2, Blood 30 mmol/L (21-32); Calcium, Blood 8.3 mg/dL (8.5-10.1); Chloride, Blood 80 mmol/L (98-108); Creatinine, Blood 0.38 mg/dL (0.40-1.00); Glomerular Filtration Rate >60 (60-); Glucose, Blood 139 mg/dL (70-99); Phosphorus, Blood 2.5 mg/dL (2.5-4.9); Potassium, Blood 3.3 mmol/L (3.5-5.5); Sodium, Blood 121 mmol/L (136-145)
--- NOTE | 2021-01-14 19:19 | NUR ---
Assumed care. Report received from lv KNAPP. PT sleeping in room at this time, on room air, 02 sats >95%. Pt has PICC in BRIANDA, PG in TIARA. IV pump has NS on SB at this time. Alvarado catheter in place. No acute needs noted, will continue to monitor.
[2021-01-14 20:31] LABS: Albumin, Blood 2.4 g/dL (3.4-5.0); Anion Gap 7 mmol/L (6-16); Blood Urea Nitrogen 4 mg/dL (8-24); Bun/Creatinine Ratio 10.1 (12.0-20.0); CO2, Blood 31 mmol/L (21-32); Calcium, Blood 8.5 mg/dL (8.5-10.1); Chloride, Blood 84 mmol/L (98-108); Glomerular Filtration Rate >60 (60-); Glucose, Blood 88 mg/dL (70-99); Phosphorus, Blood 2.3 mg/dL (2.5-4.9); Potassium, Blood 3.8 mmol/L (3.5-5.5); Sodium, Blood 122 mmol/L (136-145)
--- NOTE | 2021-01-14 21:18 | NUR ---
PHYSICIAN CONTACT. DR. LOTT CONTACTED WITH EVENING LAB RESULTS AT 2034, ONE TIME ORDER FOR POTASSIUM PHOSPHATE OBTAINED, SEE EMAR FOR DETAILS.
[2021-01-15 05:15] LABS: BASOPHILS ABSOLUTE AUTO 0.03 K/mm3 (0.00-0.23); BASOPHILS PERCENT AUTO 1 % (0-2); EOSINOPHILS ABSOLUTE AUTO 0.21 K/mm3 (0.00-0.68); EOSINOPHILS PERCENT AUTO 5 % (0-6); Hematocrit 22.3 % (33.0-51.0); Hemoglobin 7.8 g/dL (11.5-16.0); IMMATURE GRAN ABSOLUTE AUTO 0.01 K/mm3 (0.00-0.10); IMMATURE GRAN PERCENT AUTO 0 % (0-1); LYMPHOCYTES ABSOLUTE AUTO 1.19 K/mm3 (0.84-5.20); LYMPHOCYTES PERCENT AUTO 26 % (21-46); MONOCYTES ABSOLUTE AUTO 0.54 K/mm3 (0.16-1.47); MONOCYTES PERCENT AUTO 12 % (4-13); Mean Corpuscular HGB 36.6 pg (26.0-34.0); Mean Corpuscular Volume 105 fL (80-100); NEUTROPHILS ABSOLUTE AUTO 2.62 K/mm3 (1.96-9.15); NEUTROPHILS PERCENT AUTO 57 % (41-73); Platelet Count 86 K/mm3 (150-400); RDW Coefficient Variation 15.5 % (11.7-14.2); RDW Standard Deviation 59.2 fL (35.1-46.3); Red Blood Cell Count 2.13 M/mm3 (3.80-5.20)
[2021-01-15 06:34] LABS: Alanine Aminotransfer (ALT/SGP 35 U/L (12-78); Albumin, Blood 2.3 g/dL (3.4-5.0); Albumin/Globulin Ratio 0.7 (0.8-1.8); Alk Phos 117 U/L (50-136); Amylase, Blood 153 U/L (25-115); Anion Gap 8 mmol/L (6-16); Aspartate Aminotrans (AST/SGOT 105 U/L (12-37); Bilirubin, Total 3.1 mg/dL (0.1-1.0); Blood Urea Nitrogen 5 mg/dL (8-24); CO2, Blood 32 mmol/L (21-32); Calcium, Blood 8.8 mg/dL (8.5-10.1); Chloride, Blood 84 mmol/L (98-108); Creatinine, Blood 0.46 mg/dL (0.40-1.00); Globulin, Blood 3.2 g/dL (2.2-4.0); Glomerular Filtration Rate >60 (60-); Glucose, Blood 83 mg/dL (70-99); Magnesium, Blood 1.5 mg/dL (1.6-2.4); Phosphorus, Blood 3.1 mg/dL (2.5-4.9); Potassium, Blood 3.7 mmol/L (3.5-5.5); Sodium, Blood 124 mmol/L (136-145); Total Protein, Blood 5.5 g/dL (6.4-8.2)
--- NOTE | 2021-01-15 06:45 | NUR ---
Shift summary. Pt slept throughout most of shift. PICC in place, PG in place. Alvarado catheter in place, draining julio c urine. No IV fluids running. Dr Ch notified of renal panel at 2034, obtained order for k-phos 10 mmol, one time. See shift assessment for futher details, will continue to monitor and report off to dayshift RN.
--- NOTE | 2021-01-15 09:24 | NUR ---
CARE ASSUMPTION PT WAKES TO VERBAL STIMULI, A&O TO SELF & YEAR, FOLLOWING INSTRUCTIONS. PT VSS. SPO2 > 92% ON RA. MONITOR SHOWING SR, HR 90's. PT ABD MOD DISTENDED, SOFT, NONTENDER W/ NORMOACTIVE BT's. PT C/O HEADACHE & ABD PAIN W/OUT REPORT OF PAIN SCALE OR CHARACTER WHEN ASKED. PT COUGHING AFTER SIPS OF WATER THIS AM, BUT TOLERATING PO MEDS W/ APPLESAUCE WELL. VARIOUS BRUISES NOTED SCATTERED T/O. OCONNOR CATH PATENT & DRAINING BRODY URINE. BED ALARM ON.
--- NOTE | 2021-01-15 16:16 | NUR ---
PCU STATUS MD GONZALEZ AT PT BEDSIDE W/ SHAUNNA FOR PT TO BE PCU STATUS.
--- NOTE | 2021-01-15 18:30 | NUR ---
SHIFT SUMMARY PT PCU STATUS. A&O X3. VSS. SPO2 > 92% ON RA OR 2L NC PRN. MONITOR SHOWING SR, HR 90's. PT ABD REMAINS SOFT & DISTENDED W/ PT REPORT OF ABD DISCOMFORT. CIWA's STABLE. OCONNOR CATH PATENT & DRAINING BRODY URINE. BED ALARM ON. NO EVENTS T/O SHIFT.
--- NOTE | 2021-01-15 19:10 | NUR ---
Assumed care. Report received from lv RN. Pt sleeping in bed at this time, on room air. Stable vitals. PICC in BRIANDA, PG in TIARA. NS 10 ml/hr running. Alvarado catheter in place. No acute needs noted, will continue to monitor.
[2021-01-15 19:27] LABS: Albumin, Blood 2.5 g/dL (3.4-5.0); Anion Gap 7 mmol/L (6-16); Blood Urea Nitrogen 6 mg/dL (8-24); Bun/Creatinine Ratio 12.1 (12.0-20.0); CO2, Blood 30 mmol/L (21-32); Calcium, Blood 8.8 mg/dL (8.5-10.1); Chloride, Blood 87 mmol/L (98-108); Glomerular Filtration Rate >60 (60-); Glucose, Blood 131 mg/dL (70-99); Magnesium, Blood 2.8 mg/dL (1.6-2.4); Phosphorus, Blood 3.1 mg/dL (2.5-4.9); Potassium, Blood 3.4 mmol/L (3.5-5.5); Sodium, Blood 124 mmol/L (136-145)
[2021-01-16 04:27] LABS: Hematocrit 22.2 % (33.0-51.0); Hemoglobin 7.6 g/dL (11.5-16.0)
[2021-01-16 05:25] LABS: Albumin, Blood 2.4 g/dL (3.4-5.0); Anion Gap 9 mmol/L (6-16); Blood Urea Nitrogen 9 mg/dL (8-24); Bun/Creatinine Ratio 17.9 (12.0-20.0); CO2, Blood 30 mmol/L (21-32); Calcium, Blood 8.6 mg/dL (8.5-10.1); Chloride, Blood 90 mmol/L (98-108); Glomerular Filtration Rate >60 (60-); Glucose, Blood 91 mg/dL (70-99); Magnesium, Blood 1.8 mg/dL (1.6-2.4); Phosphorus, Blood 3.4 mg/dL (2.5-4.9); Potassium, Blood 3.7 mmol/L (3.5-5.5); Sodium, Blood 129 mmol/L (136-145)
--- NOTE | 2021-01-16 06:23 | NUR ---
Shift summary. Pt slept in bed throughout shift. Pt is arousable and oriented when awake. On room air. Stable vitals. PICC in BRIANDA, PG in TIARA, both WNL. Alvardao catheter in place, 850 out this shift. See shift assessment for further details. Will continue to monitor and report off to dayshift RN.
--- NOTE | 2021-01-16 09:04 | NUR ---
ASSUMED CARE OF PT, REPORT RCV'D FROM RA TREVIÑO. PT ALERT TO SELF, RECOGNIZES THAT SHE IS IN A HOSPITAL BUT CANNOT RECALL WHY. KNOWS THAT SHE IS IN [facility], BELIEVES THE DATE IS MARCH 2020. PT REORIENTED NEEDED. PT COOPERATIVE WITH CARE WITH PERIODS OF IRRITABILITY. BED ALARM ON D/T PT'S HX OF FALLS, CIWA PRN. PT MADE MED NO TELE THIS MORNING. VSS. SEE FULL SHIFT ASSESSMENT.
--- NOTE | 2021-01-16 18:15 | NUR ---
SHIFT SUMMARY CIWA SCORE OF 8 T/O SHIFT. PT BECOMING INCREASINGLY TREMULOUS THIS EVENING. REMAINS COOPERATIVE AND ORIENTED TO SELF, PLACE, AND MONTH. PT MEDICATED WITH LIBRIUM TWICE PER EMAR. ABDOMEN REMAINS DISTENDED, TENDER TO PALPATION. SATS>90% ON ROOM AIR, HARSH NON-PRODUCTIVE COUGH, PT GIVEN FLUTTER VALVE AND INSTRUCTED ON USE. PT HAS GOOD APPETITE. 500 ML DARK URINARY OUTPUT FROM OCONNOR. VSS T/O SHIFT. PT'S AT BEDSIDE DURING VISITING HOURS. EXPRESSES CONCERN OVER PT APPEARING SLEEPY. REVIEWED PT'S STATUS AND PLAN OF CARE WITH PT AND PT'S SPOUSE. WILL REPORT TO ONCOMING NURSE.
--- NOTE | 2021-01-16 21:40 | NUR ---
Unable to give PO HS meds at this time: patient arousable only with physical stimuli. Patient drowsy. Attempted sips of water and coughed/choked.
--- NOTE | 2021-01-16 23:53 | NUR ---
Attempt x2 at PO med pass - failed Patient able to swallow secretions and cough on command. Patient coughs/chokes on one sip of water. Failed bedside RN swallow. Holding/Not giving HS meds tonight.
--- NOTE | 2021-01-17 00:39 | NUR ---
Dr. Mcclure notified of all PO HS meds held due to failed bedside swallow x2
[2021-01-17 05:27] LABS: Hematocrit 22.1 % (33.0-51.0); Hemoglobin 7.4 g/dL (11.5-16.0)
[2021-01-17 06:36] LABS: Albumin, Blood 2.3 g/dL (3.4-5.0); Anion Gap 9 mmol/L (6-16); Blood Urea Nitrogen 13 mg/dL (8-24); Bun/Creatinine Ratio 25.7 (12.0-20.0); CO2, Blood 27 mmol/L (21-32); Calcium, Blood 9.1 mg/dL (8.5-10.1); Chloride, Blood 94 mmol/L (98-108); Creatinine, Blood 0.51 mg/dL (0.40-1.00); Glomerular Filtration Rate >60 (60-); Glucose, Blood 102 mg/dL (70-99); Magnesium, Blood 1.5 mg/dL (1.6-2.4); Phosphorus, Blood 3.1 mg/dL (2.5-4.9); Potassium, Blood 3.9 mmol/L (3.5-5.5); Sodium, Blood 130 mmol/L (136-145)
--- NOTE | 2021-01-17 06:44 | NUR ---
End of shift summary: All PO meds held overnight for failed bedside swallow x2. VSS. No BM overnight. Urine output 550ml - orange/julio c color - foul smelling Somnolent/drowsy - falls asleep quickly even when awoken with physical stimuli, oriented x2 overnight when able to answer questions. No c/o pain.
--- NOTE | 2021-01-17 12:24 | NUR ---
CALLED DONNA, PATIENT'S PARTNER AND GAVE HIM AN UPDATE AND ANSWERED HIS QUESTIONS.
--- NOTE | 2021-01-17 13:35 | NUR ---
DR LANE BY TO SEE PATIENT. DISCUSSED PATIENT CARE, SHE IS PLANNING TO ORDER PT/OT, OOB X 3 daily, DC ATIVAN AND LIBRIUM, SCHEDULE A PARACENTESIS TO DRAIN OFF SOME FLUID OFF ABD.
--- NOTE | 2021-01-17 14:36 | NUR ---
OT IN ROOM WORKING WITH PATIENT. US CALLED AND SAID THAT WE NEED TO HOLD NIGHT DOSE TONIGHT OF LOVENOX AND AM DOSE ON 01/18 SO THAT PATIENT CAN GET US PARACENTESIS DONE TOMORROW.
[2021-01-17 15:04] LABS: Albumin, Blood 2.5 g/dL (3.4-5.0); Magnesium, Blood 1.7 mg/dL (1.6-2.4)
--- NOTE | 2021-01-17 15:36 | NUR ---
PT AT BEDSIDE WITH PLAN TO GET HER UP TO CHAIR. BLOWER INSTALLER WILL BRAID HER HAIR ONCE SHE IS UP IN THE CHAIR. PATIENT'S SO IS AT BEDSIDE TO VISIT.
--- NOTE | 2021-01-17 17:48 | NUR ---
VSS. PATIENT RECIEVED NO ATIVAN OR LIBRIUM TODAY FOR ETOH WITHDRAWS. SHE DOES HAVE TREMORS BUT IT IS HER BASELINE. SHE HAS NO OTHER SIGNS OF WITHDRAWLS THROUGH OUT THE DAY. HER SO PUT PATIENT BACK TO BED. HE WAS ASKED NOT TO DO THAT AGAIN WITHOUT THE ASSISTANCE OF STAFF BEING PRESENT ESPECIALLY SINCE TODAY WAS HER FIRST DAY UP IN SEVERAL DAYS. HE WAS GOING TO FEED HER ALSO, HE WAS ASKED NOT TO BECAUSE IT IS PART OF HER THERAPY TO BUILD UP HER STRENGTH TO GO HOME. SHE IS EATING DINNER IN BED, WITH HOB ELEVATED TO 80 DEGRESS. WHEN HER HEAD IS UP ALL THE WAY SHE DOES NOT COUGH OR SPUTER ON FOOD AND/OR LIQUIDS. OVERAL, SHE IS MORE AWAKE THAN SHE PREFERS, BUT LOOKS GOOD.
[2021-01-18 05:08] LABS: Hematocrit 21.5 % (33.0-51.0); Hemoglobin 7.1 g/dL (11.5-16.0); Mean Corpuscular HGB 35.9 pg (26.0-34.0); Mean Corpuscular Volume 109 fL (80-100); Mean Platelet Volume 10.1 fL (9.1-12.4); Platelet Count 78 K/mm3 (150-400); RDW Coefficient Variation 16.3 % (11.7-14.2); RDW Standard Deviation 64.7 fL (35.1-46.3); Red Blood Cell Count 1.98 M/mm3 (3.80-5.20); White Blood Cell Count 4.36 K/mm3 (4.00-11.30)
[2021-01-18 05:23] LABS: Albumin, Blood 2.3 g/dL (3.4-5.0); Anion Gap 7 mmol/L (6-16); Blood Urea Nitrogen 11 mg/dL (8-24); Bun/Creatinine Ratio 24.3 (12.0-20.0); CO2, Blood 27 mmol/L (21-32); Calcium, Blood 8.9 mg/dL (8.5-10.1); Chloride, Blood 99 mmol/L (98-108); Creatinine, Blood 0.45 mg/dL (0.40-1.00); Glomerular Filtration Rate >60 (60-); Glucose, Blood 107 mg/dL (70-99); Magnesium, Blood 1.4 mg/dL (1.6-2.4); Phosphorus, Blood 3.3 mg/dL (2.5-4.9); Potassium, Blood 3.9 mmol/L (3.5-5.5); Sodium, Blood 133 mmol/L (136-145)
--- NOTE | 2021-01-18 05:41 | NUR ---
End of shift summary: Patient mentation improving. Intermittently alert. Otherwise droswy and sleepy. When asked, orientation x3-4. Wrong date, but correct month and year. Vague but correct answer to knowing why she is in the hospital. Morning labs: sodium improved. Magnesium low at 1.4 with no electrolyte protocol replacement. Hgb trending downward at 7.1. Plateletes remain low. Vital signs stable overnight. Wheezing and rhonchi auscultated, weak and nonproductive moist cough present, denied SOB/CP and saturations stable on RA. No PRN meds required overnight. Alvarado remains dark orange but adequate output. BM overnight. Lots of gas production. Able to stand and pivot to BSC with one assist. Requires encouragement.
[2021-01-18 05:48] LABS: BASOPHILS PERCENT MAN 0 % (0-2); EOSINOPHILS ABSOLUTE MAN 0.08 K/mm3 (0.00-0.68); EOSINOPHILS PERCENT MAN 2 % (0-6); LYMPHOCYTES % ATYPICAL MANUAL 1 % (0-0); LYMPHOCYTES ABSOLUTE MAN 1.17 K/mm3 (0.84-5.20); LYMPHOCYTES PERCENT MAN 26 % (21-46); MONOCYTES ABSOLUTE MAN 0.43 K/mm3 (0.16-1.47); MONOCYTES PERCENT MAN 10 % (4-13); NEUTROPHILS ABSOLUTE MAN 2.65 K/mm3 (1.96-9.15); SEG NEUTROPHILS PERCENT MAN 61 % (41-73); TOTAL CELLS COUNTED 100
--- NOTE | 2021-01-18 09:30 | NUR ---
Provider visit- Dr. Dima Ch at bedside and would like Thiamine rate decreased to 50 mls/hr and stopped at 1200. Pt has 1 L fluid restriction per day.
--- NOTE | 2021-01-18 09:30 | NUR ---
Care Assumed 0700 Pt A/O to location, event, month/year, unable to state the current president. Pt slow to respond at times. Up to bedside chair with one person assistance for breakfast. Tolerating eating and taking medications well. On RA, wheezing in upper lobes and dim lower. BP stable. Denies being in pain. Alvarado in place, will call provider in regards to removing it. Abd distented and firm, pt to have paracentesis later on today.
--- NOTE | 2021-01-18 10:30 | NUR ---
Paracentesis Paracentesis completed and 4 L removed. Pt tolerated well. VSS. Pt denies being in pain. Will start pt on albumin per orders.
--- NOTE | 2021-01-18 12:15 | NUR ---
Provider call- Dr. Jama Spoke to provider in regards to removing patients alicea and stopping IV Thiamine. Provider states ok to remove alicea and IV Thiamine to be stopped.
--- NOTE | 2021-01-18 12:35 | NUR ---
Met with Saadia this afternoon in her ICU room. She is c/o chills. ICU reports pt dara had paracentsis completed recently with 4 liters of fluid removed and is currently receiving albumin. Pt is well known to this underwriter solicitation director from recurrent visits to the [facility] for weekly albumin infusions post paracentesis. Pt recognized this underwriter solicitation director. She states other than her chills that she feels "okay." She reports her has visited her during her hosptial stay. She appears fatigued and at times slightly withdrawn. Will allow her to rest at this time. PC to follow for advanced care planning and symptom management as needed.
--- NOTE | 2021-01-18 18:07 | NUR ---
Shift Summary Pt A/O to location, month/year, and folowing directions. Attempting to have patient sit in bedside chair after breakfast, lunch, and dinner but pt continues to refuse. Made pt aware that Dr. Jama would like her to sit in chair to increase her strength. Pt refused and falls asleep quickly while in bed. Pts significant other at bedside during visiting hours. Educated on pt having chronic renal disease, per pt "My kidneys are fine." Attempted to reeducate on current disease process, little understanding. HR 90-105's, BP stable, and on RA SPO2 > 97%. Pt is SOB when moving from bed to chair, one person assist needed. Will report to nightshift.
[2021-01-19 04:20] LABS: BASOPHILS ABSOLUTE AUTO 0.02 K/mm3 (0.00-0.23); BASOPHILS PERCENT AUTO 0 % (0-2); EOSINOPHILS PERCENT AUTO 2 % (0-6); Hematocrit 22.3 % (33.0-51.0); Hemoglobin 7.5 g/dL (11.5-16.0); IMMATURE GRAN ABSOLUTE AUTO 0.03 K/mm3 (0.00-0.10); IMMATURE GRAN PERCENT AUTO 1 % (0-1); LYMPHOCYTES ABSOLUTE AUTO 1.17 K/mm3 (0.84-5.20); LYMPHOCYTES PERCENT AUTO 20 % (21-46); MONOCYTES ABSOLUTE AUTO 0.69 K/mm3 (0.16-1.47); MONOCYTES PERCENT AUTO 12 % (4-13); Mean Corpuscular HGB 36.6 pg (26.0-34.0); Mean Corpuscular HGB Conc 33.6 g/dL (31.5-36.5); Mean Corpuscular Volume 109 fL (80-100); Mean Platelet Volume 9.4 fL (9.1-12.4); NEUTROPHILS ABSOLUTE AUTO 3.95 K/mm3 (1.96-9.15); NEUTROPHILS PERCENT AUTO 66 % (41-73); Platelet Count 87 K/mm3 (150-400); RDW Coefficient Variation 16.6 % (11.7-14.2); RDW Standard Deviation 65.7 fL (35.1-46.3); Red Blood Cell Count 2.05 M/mm3 (3.80-5.20); White Blood Cell Count 5.96 K/mm3 (4.00-11.30)
[2021-01-19 04:35] LABS: Albumin, Blood 2.4 g/dL (3.4-5.0); Anion Gap 7 mmol/L (6-16); Blood Urea Nitrogen 11 mg/dL (8-24); Bun/Creatinine Ratio 27.3 (12.0-20.0); CO2, Blood 26 mmol/L (21-32); Calcium, Blood 8.9 mg/dL (8.5-10.1); Chloride, Blood 100 mmol/L (98-108); Glomerular Filtration Rate >60 (60-); Glucose, Blood 96 mg/dL (70-99); Magnesium, Blood 1.4 mg/dL (1.6-2.4); Phosphorus, Blood 3.9 mg/dL (2.5-4.9); Potassium, Blood 3.8 mmol/L (3.5-5.5); Sodium, Blood 133 mmol/L (136-145)
--- NOTE | 2021-01-19 10:20 | NUR ---
Care Assumed 0700 Pt A/O to location, event, and following direction. States correct month/year. ON RA, SPO2 > 90%. HR 80's. BP stable. Able to get out of bed for breakfast but quickly returns to bed and falls asleep. Require one person assist, weak gait. Abd distended, BT hyperactive. Call light within reach.
--- NOTE | 2021-01-19 12:54 | NUR ---
Provider Visit Dr. Jama in to see patient. Pt to be discharged home today.
[2021-01-19] MEDS ORDERED: LACT10SY PO (13:45)
[2021-01-19] MEDS ORDERED: MAGNESIUM OXID500 MG PO (13:47)
[2021-01-19] MEDS ORDERED: CREON DR 12,001 EACH PO (13:47)
[2021-01-19] MEDS ORDERED: SODCHL1 PO (13:48)
--- NOTE | 2021-01-19 15:35 | NUR ---
Discharge 1450 Patient discharged home via wheelchair with boyfriend. All medications faxed to [facility] ([facility]), reviewed with patient. Pt would like myThings, paper work sent. Pt made aware of follow up appointments to be made by patient on Wednesday with PCP and Dr. Ch. Pt states she will do this. Education provided on ETOH and hyponatremia (little understanding by patient). Powerglide and PICC line removed, WNL. All belongings sent home with patient. VSS. Pt appears happy to be going home.
== END 2021-01-19 15:13 | disposition home health service (06) | DRG 641 ==
LOC: ER 11:32 → PCU 14:21 → ICUE 14:21 → PCU 15:47 → ICUE 17:34
PROVIDERS: Emergency Medicine; Internal Medicine; Internal Medicine Nephrology; ADMIT Family Medicine
DX: E87.1 Hypo-osmolality and hyponatremia (principal); E87.6 Hypokalemia; D69.6 Thrombocytopenia, unspecified; F10.20 Alcohol dependence, uncomplicated; K70.31 Alcoholic cirrhosis of liver with ascites; F41.8 Other specified anxiety disorders; I10 Essential (primary) hypertension; E88.09 Other disorders of plasma-protein metabolism, not elsewhere classified; D63.8 Anemia in other chronic diseases classified elsewhere; F17.210 Nicotine dependence, cigarettes, uncomplicated
CPT/HCPCS: 0241U; 36415; 36569; 36600; 49083; 71045; 80053; 80069; 81001; 81025; 82040; 82140; 82150; 82248; 82533; 82607; 82728; 82746; 82803; 83540; 83550; 83605; 83615; 83690; 83735; 83930; 84100; 84132; 84145; 84295; 84300; 84443; 84550; 85014; 85018; 85025; 85610; 85730; 86140; 93005; 93010; 94760; 97110; 97162; 97166; 97530; 97535; 99285-25; A9270; C1751; G0480; J0696; J1650; J2060; J3411; J3475; J3480; J7030; J7040; J7042; J7050; J7060; J7070; P9046

== ENCOUNTER 2021-01-23 00:32 | Inpatient (IN) | payer OTHER ==
[~2021-01-23] VITALS: Ht 157.5 cm; Wt 80.2 kg
[~2021-01-23 00:32] MED LIST changes: +CREON DR 12,001 EACH PO; +MAGNESIUM OXID500 MG PO; +SODCHL1 PO
[2021-01-23 01:49] LABS: BASOPHILS ABSOLUTE AUTO 0.03 K/mm3 (0.00-0.23); BASOPHILS PERCENT AUTO 0 % (0-2); EOSINOPHILS ABSOLUTE AUTO 0.09 K/mm3 (0.00-0.68); EOSINOPHILS PERCENT AUTO 1 % (0-6); Hematocrit 25.1 % (33.0-51.0); Hemoglobin 8.3 g/dL (11.5-16.0); IMMATURE GRAN ABSOLUTE AUTO 0.04 K/mm3 (0.00-0.10); IMMATURE GRAN PERCENT AUTO 0 % (0-1); LYMPHOCYTES ABSOLUTE AUTO 1.78 K/mm3 (0.84-5.20); LYMPHOCYTES PERCENT AUTO 16 % (21-46); MONOCYTES PERCENT AUTO 6 % (4-13); Mean Corpuscular HGB 35.8 pg (26.0-34.0); Mean Corpuscular HGB Conc 33.1 g/dL (31.5-36.5); Mean Corpuscular Volume 108 fL (80-100); Mean Platelet Volume 10.5 fL (9.1-12.4); NEUTROPHILS PERCENT AUTO 76 % (41-73); Platelet Count 156 K/mm3 (150-400); RDW Coefficient Variation 17.3 % (11.7-14.2); RDW Standard Deviation 67.8 fL (35.1-46.3); Red Blood Cell Count 2.32 M/mm3 (3.80-5.20); White Blood Cell Count 10.94 K/mm3 (4.00-11.30)
[2021-01-23 02:08] LABS: Alanine Aminotransfer (ALT/SGP 29 U/L (12-78); Albumin, Blood 2.6 g/dL (3.4-5.0); Albumin/Globulin Ratio 0.6 (0.8-1.8); Alk Phos 119 U/L (50-136); Anion Gap 8 mmol/L (6-16); Aspartate Aminotrans (AST/SGOT 55 U/L (12-37); Bilirubin, Total 2.6 mg/dL (0.1-1.0); Blood Urea Nitrogen 8 mg/dL (8-24); Bun/Creatinine Ratio 14.5 (12.0-20.0); CO2, Blood 26 mmol/L (21-32); Calcium, Blood 9.3 mg/dL (8.5-10.1); Chloride, Blood 100 mmol/L (98-108); Creatinine, Blood 0.55 mg/dL (0.40-1.00); Globulin, Blood 4.3 g/dL (2.2-4.0); Glomerular Filtration Rate >60 (60-); Glucose, Blood 86 mg/dL (70-99); Magnesium, Blood 1.5 mg/dL (1.6-2.4); Potassium, Blood 4.3 mmol/L (3.5-5.5); Sodium, Blood 134 mmol/L (136-145); Total Protein, Blood 6.9 g/dL (6.4-8.2)
[2021-01-23 02:19] LABS: Ethanol (Alcohol), Blood, Med 35 mg/dL
[2021-01-23 03:20] LABS: Base Excess Venous 1.8 mmol/L; Bicarbonate Venous 25.9 mmol/L (24.0-30.0); PCO2 Venous 41.1 mmHg (38-42); PO2 Venous 109 mmHg (38-42); pH Blood Venous 7.42 (7.34-7.37)
[2021-01-23 16:03] LABS: Automated BF WBC Count 0.118 K/mm3 (0-999); Body Fluid WBC Count 118 /mm3 (0-999)
[2021-01-23 16:19] LABS: Albumin, Body Fluid 0.6 g/dL
[2021-01-23 16:29] LABS: Glucose, Body Fluid 99 mg/dL
[2021-01-23 16:30] LABS: RBC Count, Body Fluid 602 /mm3 (0-0)
[2021-01-23 16:31] LABS: Appearance, Body Fluid Clear (Clear); Color, Body Fluid Yellow (None-Yellow)
[2021-01-23 16:41] LABS: Protein, Body Fluid 1.8 g/dL
[2021-01-23 16:59] LABS: Total Cell Count, Body Fluid 100
[2021-01-23 17:11] LABS: Source, Urine Clean Catch
[2021-01-23 17:15] LABS: Appearance, Urine Clear (Clear); Bilirubin, Urine Neg (Neg); Blood, Urine Neg (Neg); Color, Urine Amber (P-Yellow); Glucose Qualitative, Urine Neg (Neg); Ketones, Urine Neg (Neg); Leukocyte Esterase, Urine Neg (Neg); Nitrite, Urine Neg (Neg); Protein, Urine Neg (Neg); Urobilinogen, Urine 4+ (Normal)
[2021-01-23 17:27] LABS: U Amphetamine Screen Not Detected; U Barbituate Screen DETECTED; U Benzodiazapine Screen DETECTED; U Buprenorphine Screen Not Detected; U Cannabinoids Screen DETECTED; U Cocaine Screen Not Detected; U Methadone Screen Not Detected; U Methamphetamine Screen Not Detected; U Opiates Screen Not Detected; U Oxycodone Screen Not Detected; U Phencyclidine Screen Not Detected; U Propoxyphene Screen Not Detected
--- NOTE | 2021-01-23 18:17 | NUR ---
SHIFT SUMMARY PATIENT ADMITTED FROM ER AT 1700. PATIENT SETTLED INTO ROOM. PATIENT IS A 1 PERSON TO A BSC. PATIENT IS SLIGHTLY CONFUSED, MUMBLING. CIWA WAS 12, MEDICATED PER EMAR. SEIZURE PADS IN PLACE. TELE ORDERED. PATIENT REPORTED NAUSEA AND DID NOT WANT TO EAT. PATIENT IS ON 2L VIA N/C. SATURATING AT 99%. PATIENT DOES NOT FOLLOW DIRECTIONS WELL AND IS IMPULSIVE.
[2021-01-23] MEDS ORDERED: KLOR-CON 1010 ME5 PO (19:05)
[2021-01-23] MEDS ORDERED: FURO40 PO (19:05)
--- NOTE | 2021-01-24 04:54 | NUR ---
PATIENT HAS BEEN GOING T/O ETOH WITHDRAWLS THIS SHIFT WITH A CIWA SCORE HIGH 15. MEDICATED PATIENT WITH ATIVAN AND LIBRIUM APPROPRIATE WITH EFFECTIVE RESULTS. PATIENT HAS BEEN COOPERATIVE WITH STAFF AND CARE PROVIDED, SOMETIMES JUST NEEDING A LITTLE EXTRA INSTRUCTION DUE TO HER CURRNTLY IMPAIRED COGNITIVE STATE. VITALS HAVE BEEN STABLE. PATIENT ASLEEP IN BED AT THIS TIME. CALL LIGHT WITHIN REACH; BED ALARM ON A ADDED SAFETY MEASURE.
[2021-01-24 05:13] LABS: BASOPHILS ABSOLUTE AUTO 0.02 K/mm3 (0.00-0.23); BASOPHILS PERCENT AUTO 0 % (0-2); EOSINOPHILS ABSOLUTE AUTO 0.12 K/mm3 (0.00-0.68); EOSINOPHILS PERCENT AUTO 2 % (0-6); Hematocrit 22.9 % (33.0-51.0); Hemoglobin 7.5 g/dL (11.5-16.0); IMMATURE GRAN ABSOLUTE AUTO 0.01 K/mm3 (0.00-0.10); IMMATURE GRAN PERCENT AUTO 0 % (0-1); LYMPHOCYTES ABSOLUTE AUTO 1.65 K/mm3 (0.84-5.20); LYMPHOCYTES PERCENT AUTO 26 % (21-46); MONOCYTES ABSOLUTE AUTO 0.51 K/mm3 (0.16-1.47); MONOCYTES PERCENT AUTO 8 % (4-13); Mean Corpuscular HGB 35.7 pg (26.0-34.0); Mean Corpuscular HGB Conc 32.8 g/dL (31.5-36.5); Mean Corpuscular Volume 109 fL (80-100); Mean Platelet Volume 10.3 fL (9.1-12.4); NEUTROPHILS ABSOLUTE AUTO 4.14 K/mm3 (1.96-9.15); NEUTROPHILS PERCENT AUTO 64 % (41-73); Platelet Count 137 K/mm3 (150-400); RDW Coefficient Variation 17.4 % (11.7-14.2); RDW Standard Deviation 67.3 fL (35.1-46.3); White Blood Cell Count 6.45 K/mm3 (4.00-11.30)
[2021-01-24 05:34] LABS: International Normalized Ratio 1.19; Prothrombin Time Results 12.4 Sec (9.7-11.5)
[2021-01-24 06:45] LABS: Alanine Aminotransfer (ALT/SGP 25 U/L (12-78); Albumin, Blood 2.2 g/dL (3.4-5.0); Albumin/Globulin Ratio 0.6 (0.8-1.8); Alk Phos 106 U/L (50-136); Anion Gap 9 mmol/L (6-16); Aspartate Aminotrans (AST/SGOT 36 U/L (12-37); Bilirubin, Total 2.5 mg/dL (0.1-1.0); Blood Urea Nitrogen 8 mg/dL (8-24); Bun/Creatinine Ratio 15.2 (12.0-20.0); CO2, Blood 27 mmol/L (21-32); Calcium, Blood 8.5 mg/dL (8.5-10.1); Chloride, Blood 99 mmol/L (98-108); Creatinine, Blood 0.53 mg/dL (0.40-1.00); Globulin, Blood 3.7 g/dL (2.2-4.0); Glomerular Filtration Rate >60 (60-); Glucose, Blood 85 mg/dL (70-99); Potassium, Blood 3.8 mmol/L (3.5-5.5); Sodium, Blood 135 mmol/L (136-145); Total Protein, Blood 5.9 g/dL (6.4-8.2)
--- NOTE | 2021-01-24 17:33 | NUR ---
TRANSFER PT IS AGITATED AND HAS BEEN RECIEVING 2 MG OF ATIVAN Q1 FOR AGITATION AND ANXIETY, CIWA SCORE OF 25 WHEN LAST MEASURED. UNABLE TO PREFORM SWALLOW EVAL DUE TO INABILITY TO FOLLOW DIRECTIONS. PT PLACED NPO WITH CLINAMIX ORDERED PT TRANSFERRED TO PCU RM 01 FOR CLOSER MONITORING. FULL REPORT GIVEN TO NURSE BRITTANY ANAYA UPON TRANSFER.
--- NOTE | 2021-01-24 17:35 | NUR ---
ARRIVAL TO PCU PATIENT ARRIVED TO [facility] AT APOX 1710. TELE SR. VSS. SPO2 >90% ON RA. PATIENT IS A/OX3. UNABLE TO GIVE THE CURRENT DATE, BUT ABLE TO SAY THE YEAR. CIWA 8 WHEN PATIENT ARRIVED. LIFE PARTNER IS AT BEDSIDE. CALL LIGHT WITHIN REACH AND BED IN LOWEST POSITION. WARM BLANKETS GIVEN TO PATIENT. WILL CONTINUE TO MONITOR AND PROVIDE CARE.
--- NOTE | 2021-01-24 18:50 | NUR ---
SHIFT SUMMARY PATIENT IS A/OX3. VSS. NO ACUTE CHANGES SINCE ARRIVAL. WILL CONTINUE TO MONITOR AND PROVIDE CARE UNTIL HAND OFF WITH NEXT SHIFT
[2021-01-25 04:52] LABS: Hematocrit 24.5 % (33.0-51.0); Hemoglobin 7.9 g/dL (11.5-16.0); Mean Corpuscular HGB 35.6 pg (26.0-34.0); Mean Corpuscular HGB Conc 32.2 g/dL (31.5-36.5); Mean Corpuscular Volume 110 fL (80-100); Mean Platelet Volume 10.6 fL (9.1-12.4); Platelet Count 143 K/mm3 (150-400); RDW Coefficient Variation 17.9 % (11.7-14.2); RDW Standard Deviation 69.8 fL (35.1-46.3); Red Blood Cell Count 2.22 M/mm3 (3.80-5.20); White Blood Cell Count 5.33 K/mm3 (4.00-11.30)
--- NOTE | 2021-01-25 04:52 | NUR ---
PATIENT ALERT AND ORIENTATED WITH PLACE, TIME, SELF, (-) SITUATION MUMBLING, FIDGETY, REPETITIVE CONCERNS, THROWING THINGS AND USING PROFANITIES THROUGHOUT THE SHIFT TONIGHT. TIARA POWERGLIDE PUT IN AT BEGINNING OF SHIFT FOR CLINIMAX ORDER, REMOVED L-HAND PIV FOR REDNESS AND PAINFUL WITH FLUSHING, INSERTED 22 GAUGE IN THE LFA. PATIENT TRIED TO GET OUT OF BED MULTIPLE TIMES BUT TOO WEAK TO ACCOMPLISH TASK, BED ALARM ON AND ALERTED STAFF EACH TIME AND REMAINS ON FOR SAFETY AND SEIZURE PADS IN PLACE. NO NOTED SEIZURE ACTIVITY THIS SHIFT.
[2021-01-25 05:39] LABS: Albumin, Blood 2.2 g/dL (3.4-5.0); Anion Gap 6 mmol/L (6-16); Blood Urea Nitrogen 10 mg/dL (8-24); Bun/Creatinine Ratio 20.3 (12.0-20.0); CO2, Blood 28 mmol/L (21-32); Calcium, Blood 8.8 mg/dL (8.5-10.1); Chloride, Blood 103 mmol/L (98-108); Creatinine, Blood 0.49 mg/dL (0.40-1.00); Glomerular Filtration Rate >60 (60-); Glucose, Blood 98 mg/dL (70-99); Magnesium, Blood 1.9 mg/dL (1.6-2.4); Phosphorus, Blood 4.7 mg/dL (2.5-4.9); Potassium, Blood 4.3 mmol/L (3.5-5.5); Sodium, Blood 137 mmol/L (136-145); Triglycerides 55 mg/dL (30-160)
--- NOTE | 2021-01-25 09:13 | NUR ---
CARE ASSUMPTION THIS RN ASSUMED CARE AT 0700 FROM GABI KNAPP. PATIENT IS A/OX3. PATIENT IS LETHARGIC AT TIMES, BUT IS RESPONSIVE AND COOPERATIVE WITH CARE THIS AM. SPEECH INTO SEE PATIENT THIS AM AND SHE HAS SWALLOW PRECAUTIONS, BUT IS A PUREE DIET WITH A FEEDER. TAKES MEDS WITH APPLE SAUCE ONE AT A TIME AND IS IN 90 DEGREE POSITION. VSS. TELE SR 82. PATIENT CIWA THIS AM IS 12. WILL CONTINUE TO MONITOR AND PROVIDE CARE. PATIENT RN EMERGENCY ROOMJAYY RAMIREZ IS FEEDING PATIENT THIS AM. CALL LIGHT WITHIN REACH.
--- NOTE | 2021-01-25 14:15 | NUR ---
DENNIS THIS RN WENT TO REASSESS THE PATIENT DUE TO HER LAST SCORE BEING A 13. PATIENT WAS SLEEPING, SO THIS RN LET HER CONTINUE TO SLEEP. WILL CONTINUE TO MONITOR AND PROVIDE CARE.
--- NOTE | 2021-01-25 16:47 | NUR ---
CIWA REASSESS PATIENT IS STILL SLEEPING. PATIENT SHOWS NO SIGNS OF TREMORS OR DISCOMFORT. WILL REASSESS CIWA WHEN I BRING IN DINNER TRAY.
--- NOTE | 2021-01-25 18:19 | NUR ---
SHIFT SUMMARY PATIENT LIFE PARTNER WAS AISSITING PATIENT WHEN EATING, AND THIS RN WAS WATCHING. PATIENT BEGAN TO COUGH EXCESSIVELY, WET SOUNDS, AND SECRETIONS COMING UP. THIS RN SUCTIONED THE PATIENT AND GOT UP CLEAR THICK SECRETIONS. PATIENT IS SITTING UP RIGHT AT 90 DEGREE IN THE BED. PATIENT ON 5L O2 DUE TO HER COUGHING AND O2 DESATTING. THIS RN TOOK PATIENT FOOD AWAY AND SAID WOULD BE NPO UNTIL SPEECH COULD COME SEE THE PATIENT AGAIN, OR IS READY FOR A BED SIDE SWALLOW EVAL. PATIENT VERBALIZED UNDERSTANDING. PATIENT CIWA HAS BEEN 4-12 THROUGHOUT THE DAY. CALL LIGHT WITHIN REACH AND BED IN LOWEST POSITION. NO ACUTE CHANGES THIS SHIFT. PATIENT IS A/OX3. VSS. WILL CONTINUE TO MONITOR AND PROVIDE CARE UNTIL HAND OFF WITH NEXT SHIFT.
[2021-01-26 03:59] LABS: Hematocrit 24.5 % (33.0-51.0); Hemoglobin 8.1 g/dL (11.5-16.0); Mean Corpuscular HGB 36.2 pg (26.0-34.0); Mean Corpuscular HGB Conc 33.1 g/dL (31.5-36.5); Mean Corpuscular Volume 109 fL (80-100); Mean Platelet Volume 10.2 fL (9.1-12.4); Platelet Count 133 K/mm3 (150-400); RDW Coefficient Variation 18.3 % (11.7-14.2); RDW Standard Deviation 72.8 fL (35.1-46.3); Red Blood Cell Count 2.24 M/mm3 (3.80-5.20)
[2021-01-26 04:22] LABS: Anion Gap 5 mmol/L (6-16); Blood Urea Nitrogen 14 mg/dL (8-24); Bun/Creatinine Ratio 26.7 (12.0-20.0); CO2, Blood 28 mmol/L (21-32); Calcium, Blood 8.9 mg/dL (8.5-10.1); Chloride, Blood 103 mmol/L (98-108); Creatinine, Blood 0.52 mg/dL (0.40-1.00); Glomerular Filtration Rate >60 (60-); Glucose, Blood 98 mg/dL (70-99); Phosphorus, Blood 4.2 mg/dL (2.5-4.9); Potassium, Blood 4.4 mmol/L (3.5-5.5); Sodium, Blood 136 mmol/L (136-145)
--- NOTE | 2021-01-26 06:34 | NUR ---
SHIFT SUMMARY: PT RESISTANT TO CARE, OFTEN CURSING STAFF, ATTEMPTING TO REMOVE MEDICAL DEVICES AND IV'S. PT DOES NOT REDIRECT OR FOLLOW COMMANDS, ORIENTED TO SELF AND PLACE, BUT NOT TIME. IN SR ALL SHIFT, VSS, SOME BP'S A BIT SOFT BUT MAP >65. INCONTINENT OF URINE, EVERETT CARE GIVEN FREQ AND PT TURNED AND REPOSITIONED Q2 HOURS BUT OFTEN TURNS HERSELF TO HER BACK. REQUIRES TOTAL ASSIT WILL ALL CARES, CIWA BETWEEN 6-10 THIS SHIFT, MEDICATED WITH PRN ATIVAN, SEE MAR. PULSE OX SENSOR PLACED ON TOE PT KEEPS REMOVING IT FROM FINGERS. RA HUBBARD
--- NOTE | 2021-01-26 07:32 | NUR ---
CARE ASSUMPTION PATIENT IS LETHARGIC, ORIENTATED TO SELF, PLACE, PRESIDENT, AND PERSON. VSS. TELE SR 81. SPO2 >90% ON RA. LUNG SOUNDS COARSE. PATIENT REPORTS NO CHEST PAIN, PAIN, OR SHORTNESS OF BREATH. THIS RN WILL DO A CIWA WHEN PATIENT IS MORE AWAKE. CALL LIGHT WITHIN REACH AND BED IN LOWEST POSITION. WILL CONTINUE TO MONITOR AND PROVIDE CARE
--- NOTE | 2021-01-26 16:42 | NUR ---
SHIFT SUMMARY PATIENT IS A/OX3. VSS. PATIENT HAS BEEN REPOSITIONED AND CHANGED THROUGHOUT THE SHIFT TO PREVENT SKIN BREAK DOWN, AND DUE TO INCONTINENCE. PATIENT CIWA SCORE 0-8. SEIZURE PADS STILL CONTINUE TO BE IN PLACE. NO ACUTE CHANGES THIS SHIFT. CALL LIGHT WITHIN REACH AND BED IN LOWEST POSITION. WILL CONTINUE TO MONITOR AND PROVIDE CARE UNTIL HAND OFF WITH NEXT SHIFT.
--- NOTE | 2021-01-27 05:21 | NUR ---
SHIFT SUMMARY PT ALERT, ORIENTED TO SELF AND PLACE. DOES NOT KNOW DATE. PT AGITATED AT BEGINNING OF SHIFT. STATED SHE WANTED TO GO HOME, CALLED SIGNIFICANT OTHER, DONNA. PT ALSO THREW PT'S PHONE ACROSS ROOM D/T HANDS TREMULOUS AND COULD NOT UNLOCK SCREEN PASSWORD. ATIVAN GIVEN PER EMAR D/T CIWA OF 10. SP02>90% ON RA. TELEMETRY READS NSR, HR 80'S. MULTIVITAMIN INFUSED PER EMAR. PT SLEPT SECOND HALF OF SHIFT. PT'S S/O, DONNA, CALLED NURSE TO CHECK ON PATIENT. STATED HE WAS WORRIED ABOUT HER, WANTED HER TO GET SOBER BUT "SHES BEEN DRINKING HER WHOLE LIFE, DOESNT WANT TO GET SOBER." CALL LIGHT IN REACH.
--- NOTE | 2021-01-27 17:05 | NUR ---
SHIFT SUMMARY PT ALERT TO SELF, LOCATION AND REASON FOR BEING ADMITTED TO THE HOSPITAL. PT SLEEPING ON AND OFF THROUGHOUT SHIFT. PT'S SPEECH GARBLED, DIFFICULT TO UNDERSTAND. AT BEDSIDE. PT INCONTINENT, BRIEF IN PLACE. PT ABLE TO ASSIST IN TURNS. HR STABLE. BP STABLE. OXYGEN SATURATION MAINTAINED ABOVE 92% ON RA. NO CP OR PRESSURE REPORTED. WILL CONT TO MONITOR UNTIL REPORT GIVEN TO NIGHTSHIFT RN.
--- NOTE | 2021-01-27 18:16 | NUR ---
UPDATE ATTEMPTED TO ASSIST PT IN DINNER. PT HAVING NEW L SIDED WEAKNESS. PT TEARFUL AND AFRAID STATING "WEAKNESS IS NEW" AND THAT SHE "CANT HELP BUT LEAN TO THIS SIDE." PHYSICIAN NOTIFIED, HEAD CT ORDERED.
[2021-01-28 05:54] LABS: Hematocrit 26.6 % (33.0-51.0); Hemoglobin 8.4 g/dL (11.5-16.0); Mean Corpuscular HGB 34.4 pg (26.0-34.0); Mean Corpuscular HGB Conc 31.6 g/dL (31.5-36.5); Mean Corpuscular Volume 109 fL (80-100); Mean Platelet Volume 10.3 fL (9.1-12.4); Platelet Count 103 K/mm3 (150-400); RDW Coefficient Variation 17.7 % (11.7-14.2); RDW Standard Deviation 70.9 fL (35.1-46.3); Red Blood Cell Count 2.44 M/mm3 (3.80-5.20); White Blood Cell Count 5.63 K/mm3 (4.00-11.30)
--- NOTE | 2021-01-28 06:08 | NUR ---
SHIFT SUMMARY NO ACUTE CHANGES THIS SHIFT. PT ALERT, ORIENTED TO SELF AND PLACE. FOLLOWS DIRECTIONS. SP02>92% ON RA. PT HAS VERY WEAK COUGH, HARD TIME CLEARING PHLEM. BLOWING NOSE W/ BLOOD TINGED SPUTUM. TELEMETRY READS NSR, HR 80'S. FLUIDS INFUSED PER EMAR. PT INCONTINENT, CHANGED MULTIPLE TIMES. C/D ATTENDS IN PLACE. PT C/O OF EXTREME ITCHING THIS SHIFT, TREMULOUS, CIWA WAS 8. ATIVAN 1 MG GIVEN PER EMAR X1. PT CURRENTLY SLEEPING. CALL LIGHT IN REACH.
[2021-01-28 06:34] LABS: Albumin, Blood 2.3 g/dL (3.4-5.0); Anion Gap 8 mmol/L (6-16); Blood Urea Nitrogen 15 mg/dL (8-24); Bun/Creatinine Ratio 37.5 (12.0-20.0); CO2, Blood 25 mmol/L (21-32); Calcium, Blood 8.9 mg/dL (8.5-10.1); Chloride, Blood 105 mmol/L (98-108); Glomerular Filtration Rate >60 (60-); Glucose, Blood 98 mg/dL (70-99); Magnesium, Blood 1.7 mg/dL (1.6-2.4); Phosphorus, Blood 4.3 mg/dL (2.5-4.9); Sodium, Blood 138 mmol/L (136-145)
--- NOTE | 2021-01-28 17:38 | NUR ---
SHIFT SUMMARY PT ALERT TO SELF. LOCATION AT TIMES. PT TEARFUL AND DROWSY T/O SHIFT. ORDERS FOR PT/OT PUT IN THIS AM PER PHYSICIAN. PT ABLE TO ASSIST IN Q 2 TURNS. PER OT THIS EVENING, NURSING STAFF TO HAVE PT UP IN CHAIR AT MEALS WITH LIFT. PT'S SPOUSE AT BEDSIDE. SEE CIWA SCORES IN EHR. PT HAD POOR PO INTAKE THIS SHIFT. SEE EHR. OXYGEN SATURATION MAINTAINED ABOVE 92% ON RA. HR STABLE. BP STABLE. NO CP OR PRESSURE REPORTED. WILL CONT TO MONITOR UNTIL REPORT GIVEN TO NIGHTSHIFT RN.
--- NOTE | 2021-01-29 06:17 | NUR ---
SHIFT SUMMARY NO ACUTE CHANGES THIS SHIFT. PT ALERT, ORIENTED TO SELF, PLACE. FOLLOWS COMMANDS. DOES NOT KNOW THE DATES. SP02>92% ON RA. TELEMETRY READS NSR, HR 90'S. PT INCONTNENT, CHANGED MULTIPLE TIMES. C/D ATTENDS IN PLACE. BED BATH GIVEN THIS SHIFT. FLUIDS INFUSED PER EMAR. DENIED PAIN. CIWA 0-4 DURING THIS SHIFT. CALL LIGHT IN REACH.
--- NOTE | 2021-01-29 10:33 | NUR ---
PATIENT ALERT TO SELF AND PLACE. ABLE TO TELL ME ABOUT FAMILY. UNAWARE OF DATE. VERY DROWSY AND SLEEPY THIS AM. PATIENT EMOTIONAL AND WITHDRAWN FROM CONVERSTATION. PERRLA. DENIES NUMBNESS/TINGLING. ABLE TO MOVE ALL EXTREMITIES, VERY WEAK OVERALL. ON ROOM AIR SATING ABOVE 94%. WEAK OCCASIONAL COUGH. LUNGS SOUNDING COARSE AND DIM IN BASES. TELE SHOWING SINUS RHYTHM WITH HR 90-100'S. DENIES CHEST PAIN/PRESSURE. BP STABLE. MODERATE ABDOMINAL DISTENTION, DENIES ABDOMINAL PAIN/NAUSEA. ATTENDS IN PLACE FOR INCONTINENCE. BRUISING SCATTERED THROUGHOUT. SPEECH THERAPY IN TO SEE PATIENT THIS AM. SEE SPEECH ORDER. NECTAR THICK BY SPOON, MEDS WHOLE IN APPLESAUCE. CLINIMIX INFUSING WITH LIPIDS AT THIS TIME. CIWA Q4 AND NEEDED. PATIENT ABLE TO TURN SELF IN BED Q2 TURNING. BEDREST AT THIS TIME. CALL LIGHT IN REACH. WILL CONTINUE TO MONITOR.
--- NOTE | 2021-01-29 17:49 | NUR ---
UPDATE: PATIENT UPSET, AGITATED AND PULLING AT LINES. PATIENT PULLED OUT POWERGLIDE AND PULLED TELE OFF. UPSET AND STATING SHE IS GOING HOME. YELLING AT STAFF. SIGNIFICANT OTHER DONNA CALLED AND PLANNING ON COMING IN TO VISIT PATIENT. DR. WITT UPDATED. LIBRIUM GIVEN PO WITH APPLESAUCE. PATIENT RELAXING IN BED AT THIS TIME, PLAYING GAMES ON PHONE. NOT ALLOWING STAFF TO PLACE NEW IV OR PUT TELE BACK ON AT THIS TIME. WILL CONTINUE TO MONITOR. BED ALARM ON. CHARGE NURSE AND DR. WITT AWARE.
--- NOTE | 2021-01-29 18:12 | NUR ---
UPDATE: PATIENT REMAINS AGITATED AND TRYING TO GO HOME. UPDATE PROVIDED TO DR. WITT. ATIVAN CHANGED TO PO. PER DR. WITT PATIENT IS OKAY TO HOLD OFF ON TELE AND NEW IV AT THIS TIME UNTIL LESS AGITATED. WILL CONTINUE TO MONITOR.
--- NOTE | 2021-01-29 19:21 | NUR ---
SHIFT SUMMARY: SEE PREVIOUS NOTE. PO ATIVAN GIVEN, PATIENT CALMING DOWN. AGGREABLE TO STAY OVERNIGHT. SPOUSE DONNA AT BEDSIDE, HELPING CALM PATIENT. PATIENT OKAY WITH TELE BEING PUT BACK ON AND IV TO BE PLACED. REPORTED OFF TO ONCOMING RN.
--- NOTE | 2021-01-29 21:15 | NUR ---
CARE ASSUMPTION PT IS AXO X1 AND VERY TIRED. PT IS TREMULOUS AND VERY EMOTIONAL. CIWA AT THIS TIME IS 7. VSS STABLE. O2 SATS >90% ON RM AIR.
--- NOTE | 2021-01-30 05:36 | NUR ---
SIGN OUT CLERK SUMMARY PT IS AXO X1 THIS SHIFT W CIWA'S 6-9. PT STILL VERY EMOTIONAL AT TIMES AND BECOMES AGITATED WHICH CAUSES HER TO PULL AT LINES AND CORDS. O2 SATS >91% ON RM AIR THIS SHIFT. BP WNL AND STABLE. HR IS SR IN THE 90'S. PT HAS EQUAL QUILTER FIXER BUT STILL HAS A TENDANCY TO LEAN TO HER LEFT SIDE WHEN IN BED. PT INCONTINENT THROUGHOUT THE SHIFT W URINE, BRIEFS ON. WILL REPORT TO ONCOMING RN.
--- NOTE | 2021-01-30 09:29 | NUR ---
ATTEMPTED TO GIVE PO MEDS FOLLOWING GUIDELINES PROVIDED AFTER SPEECH THERAPY EVALUATION, PT UNABLE TO SAFETLY SWALLOW ANYTHING AT THIS TIME D/T LETHARGY. MD NOTIFIED- SEE NEW ORDERS.
--- NOTE | 2021-01-30 16:55 | NUR ---
PT STARTED SHIFT VERY LETHARGIC, MORE ALERT AT END OF SHIFT. VSS. NO C/O PAIN. AFEBRILE. INCONTINENT WITH AUO. NO BM. DIET CHANGED D/T FAILED SWALLOW EVAL. WORKED WITH OT- 1-2 PERSON ASSIST WITH MAX ASSIST, STOOD EOB. PT EVAL DEFERRED THIS AM D/T LETHARGY. CIWA ASSESSED Q4HR- NO PRNS NEEDED. FREQUENT ROUNDS TO ENSURE PT SAFETY. PT IN NO APPARENT DISTRESS AT THIS TIME. WILL CONTINUE TO MONITOR UNTIL TRANSFER OF CARE TO ONCOMING RN.
--- NOTE | 2021-01-30 21:07 | NUR ---
ASSUMED CARE OF PATIENT AT APPROXIMATELY 1900 FROM PATRICK Llanes RN. PATIENT DROWSY; WAKES TO VERBAL STIMULUS; NOT HAPPY ABOUT CARE; PATIENT REPORTS SHE WOULD JUST WANT TO LAY IN HER URINE IN THE BED AND NOT BE CHANGED. PATIENT DENIES PAIN, NUMBNESS, TINGLING, DIZZINESS AND NAUSEA. NSR ON TELE; OXYGEN SATURATION ABOVE 90% ON ROOM AIR. PG INFUSING CLINIMIX. INCONTINENT OF LARGE AMOUNTS OF URINE. CIWA 7.
--- NOTE | 2021-01-30 23:21 | NUR ---
PATIENT REPORTS FEELING SOB; RT CALLED AND PATIENT GIVEN BREATHING TREATMENT AND REPORTS SHE FEELS "A LITTLE" BETTER. PATIENT WAS SLEEPING FLAT; HOB RAISED TO 45 DEGREES.
--- NOTE | 2021-01-31 02:40 | NUR ---
PATIENT UPSET; WANTS TO GO HOME; PATIENT CRYING; REASSURED
[2021-01-31 03:59] LABS: BASOPHILS ABSOLUTE AUTO 0.02 K/mm3 (0.00-0.23); BASOPHILS PERCENT AUTO 0 % (0-2); EOSINOPHILS ABSOLUTE AUTO 0.12 K/mm3 (0.00-0.68); EOSINOPHILS PERCENT AUTO 2 % (0-6); Hematocrit 23.1 % (33.0-51.0); Hemoglobin 7.6 g/dL (11.5-16.0); IMMATURE GRAN ABSOLUTE AUTO 0.01 K/mm3 (0.00-0.10); IMMATURE GRAN PERCENT AUTO 0 % (0-1); LYMPHOCYTES ABSOLUTE AUTO 1.33 K/mm3 (0.84-5.20); LYMPHOCYTES PERCENT AUTO 23 % (21-46); MONOCYTES ABSOLUTE AUTO 0.76 K/mm3 (0.16-1.47); MONOCYTES PERCENT AUTO 13 % (4-13); Mean Corpuscular HGB 34.5 pg (26.0-34.0); Mean Corpuscular HGB Conc 32.9 g/dL (31.5-36.5); Mean Corpuscular Volume 105 fL (80-100); Mean Platelet Volume 10.9 fL (9.1-12.4); NEUTROPHILS ABSOLUTE AUTO 3.51 K/mm3 (1.96-9.15); NEUTROPHILS PERCENT AUTO 61 % (41-73); Platelet Count 123 K/mm3 (150-400); RDW Coefficient Variation 17.5 % (11.7-14.2); RDW Standard Deviation 68.3 fL (35.1-46.3); White Blood Cell Count 5.75 K/mm3 (4.00-11.30)
[2021-01-31 04:12] LABS: Anion Gap 5 mmol/L (6-16); Blood Urea Nitrogen 20 mg/dL (8-24); Bun/Creatinine Ratio 43.7 (12.0-20.0); CO2, Blood 26 mmol/L (21-32); Calcium, Blood 8.6 mg/dL (8.5-10.1); Chloride, Blood 104 mmol/L (98-108); Creatinine, Blood 0.46 mg/dL (0.40-1.00); Glomerular Filtration Rate >60 (60-); Glucose, Blood 91 mg/dL (70-99); Potassium, Blood 4.1 mmol/L (3.5-5.5); Sodium, Blood 135 mmol/L (136-145)
--- NOTE | 2021-01-31 06:53 | NUR ---
NO ACUTE CHANGES. PATIENT SLEPT ABOUT SEVEN HOURS LAST NIGHT.
--- NOTE | 2021-01-31 07:58 | NUR ---
Pt is easily awakened, but difficult to understand her conversation. SPeech is mumbled, poorly enunciated. She appears to be sleepy. Noc shift RN said at time of bedside report an hour ago that the pt had finally fallen asleep after being awake and active all night.
--- NOTE | 2021-01-31 13:58 | NUR ---
Received late lunch tray for the pt; pureed diet with thickened liquids to drink. She was awakened to eat, but was too weak to bring the spoon to her mouth very well; she was fed by RN. She attempted to drink the cup of apple juice by herself (she wanted to try) but spilled it in her lap. Noted attends were also soaked so she was changed.
--- NOTE | 2021-01-31 14:19 | NUR ---
Attempted to return phone call from unknown female family member of the pt. Spoke with pt's mom, Fransisca, who as it turns out was not the one who called. She is listed as the next of kin. She was updated on pt condition. Also attempted to call Melvin Clay, who is listed as the person to notify; but "unable to reach wireless customer" message was received and unable to speak with him.
--- NOTE | 2021-01-31 17:27 | NUR ---
Pt is alert, eating dinner with assistance from her boyfriend Cy. She is sitting up in bed. Alert, speech is slurred and difficult to understand. She seems tired. She is mumbling when she talks. Able to answer questions. Confused as to specific year/date, and has poor insight into her situation and limitations. Cooperative but easily agitated and yells when she is asked many questions.
--- NOTE | 2021-01-31 21:22 | NUR ---
ASSUMED CARE OF PT AT 1900. A/OX4 BUT VERY LETHARGIC AND SLURRED SPEECH. DENIES ANY CP. MAINTAINS ABOVE 95% ON RA, LS CLEAR T/O. ABDOMINAL ASCITES NOTED WITH NONPITTING TRACE BLE EDEMA. ACTIVE BS T/O. WILL UPDATE WITH ANY CHANGES.
[2021-02-01 04:50] LABS: Triglycerides 63 mg/dL (30-160)
--- NOTE | 2021-02-01 16:54 | NUR ---
VSS. NO C/O PAIN. INCONTINENT WITH AUO. NO BM- NO BOWEL REGIMEN ORDERED. POOR PO INTATKE. CIWA ASSESSMENT AND CLINIMIX/LIPIDS D/C'D. FREQUENT ROUNDS TO ENSURE PT SAFETY. PT IN NO APPARENT DISTRESS AT THIS TIME. WILL CONTINUE TO MONITOR UNTIL TRANSFER OF CARE TO ONCOMING RN.
--- NOTE | 2021-02-01 21:00 | NUR ---
ASSUMED CARE OF PATIENT AT 1900. A/OX4. C/O LOWER STOMACH CRAMPING PAIN. MAINTAINS OVER 95% ON RA, LS CLEAR T/O. NO ACUTE CHANGES, BUT WILL UPDATE IF ANY CHANGES OCCUR.
[2021-02-02 04:02] LABS: BASOPHILS ABSOLUTE AUTO 0.01 K/mm3 (0.00-0.23); BASOPHILS PERCENT AUTO 0 % (0-2); EOSINOPHILS ABSOLUTE AUTO 0.12 K/mm3 (0.00-0.68); EOSINOPHILS PERCENT AUTO 2 % (0-6); Hematocrit 25.7 % (33.0-51.0); Hemoglobin 8.2 g/dL (11.5-16.0); IMMATURE GRAN ABSOLUTE AUTO 0.01 K/mm3 (0.00-0.10); IMMATURE GRAN PERCENT AUTO 0 % (0-1); LYMPHOCYTES ABSOLUTE AUTO 1.17 K/mm3 (0.84-5.20); LYMPHOCYTES PERCENT AUTO 23 % (21-46); MONOCYTES ABSOLUTE AUTO 0.66 K/mm3 (0.16-1.47); MONOCYTES PERCENT AUTO 13 % (4-13); Mean Corpuscular HGB 33.9 pg (26.0-34.0); Mean Corpuscular HGB Conc 31.9 g/dL (31.5-36.5); Mean Corpuscular Volume 106 fL (80-100); Mean Platelet Volume 10.6 fL (9.1-12.4); NEUTROPHILS ABSOLUTE AUTO 3.11 K/mm3 (1.96-9.15); NEUTROPHILS PERCENT AUTO 61 % (41-73); Platelet Count 178 K/mm3 (150-400); RDW Coefficient Variation 17.4 % (11.7-14.2); RDW Standard Deviation 68.4 fL (35.1-46.3); Red Blood Cell Count 2.42 M/mm3 (3.80-5.20); White Blood Cell Count 5.08 K/mm3 (4.00-11.30)
[2021-02-02 04:33] LABS: Alanine Aminotransfer (ALT/SGP 23 U/L (12-78); Albumin, Blood 2.3 g/dL (3.4-5.0); Albumin/Globulin Ratio 0.5 (0.8-1.8); Alk Phos 98 U/L (50-136); Anion Gap 7 mmol/L (6-16); Aspartate Aminotrans (AST/SGOT 45 U/L (12-37); Bilirubin, Total 2.2 mg/dL (0.1-1.0); Blood Urea Nitrogen 16 mg/dL (8-24); Bun/Creatinine Ratio 34.2 (12.0-20.0); CO2, Blood 25 mmol/L (21-32); Chloride, Blood 104 mmol/L (98-108); Creatinine, Blood 0.47 mg/dL (0.40-1.00); Globulin, Blood 4.5 g/dL (2.2-4.0); Glomerular Filtration Rate >60 (60-); Glucose, Blood 86 mg/dL (70-99); Potassium, Blood 3.6 mmol/L (3.5-5.5); Sodium, Blood 136 mmol/L (136-145); Total Protein, Blood 6.8 g/dL (6.4-8.2)
--- NOTE | 2021-02-02 17:22 | NUR ---
SHIFT SUMMARY PT ALERT AND ORIENTED, WTIH MILD CONFUSION AT TIMES. SPEECH IS DIFFICULT TO UNDERSTAND. PT HAS BEEN LETHARGIC ON AND OFF. PT HAS POOR APPETITE. PT INCONTINENT OF BOWEL AND BLADDER. ATTENDS IN PLACE. REPOSITIONED Q2H. NO ACUTE CHANGES THIS SHIFT. WILL CONTINUE TO MONITOR AND REPORT TO ONCOMING RN.
--- NOTE | 2021-02-02 21:18 | NUR ---
ASSUMED CARE OF PT AT 1900. A/OX4 WITH LETHARGY. NO CP/PRESSURE, VSS. WEAK T/O. MAINTAINS ABOVE 95% ON RA, CLEAR LS T/O. BRODY URINE (INCONTINENT). REDDENED PERIANAL AREA, CLEANED/DRIED AND POWDER APPLIED. AT TIMES IT APPEARS PATIENT BECOMES MORE ANXIOUS WITH FREQUENT CALLING OUT. WILL UPDATE CHANGES OCCUR.
--- NOTE | 2021-02-03 15:40 | NUR ---
UPDATE PT STATES SHE WANTS TO GO HOME AND NOT REHAB. PT'S AT BEDSIDE. PT'S AWARE THAT PT NEEDS A LOT OF ASSISTANCE AND HE STATES HE WILL BE ABLE TO TAKE HER HOME AND CARE FOR HER. DR. CASANOVA CALLED AND NOTIFIED AND PLACING DC ORDERS.
--- NOTE | 2021-02-03 16:24 | NUR ---
DC DISCHARGE INSTRUCTIONS PROVIDED AND ALL QUESTIONS ANSWERED. PT TAKEN OUT BY CIPRIANO
== END 2021-02-03 16:16 | disposition home or self-care (01) | DRG 896 ==
LOC: ER 00:32 → ERHOLD 00:33 → MEDS 17:18 → PCU 01-24 17:10
PROVIDERS: Internal Medicine; Student in an Organized Health Care Education/Training Program; ADMIT Family Medicine
DX: F10.230 Alcohol dependence with withdrawal, uncomplicated (principal); G92.8 Other toxic encephalopathy; R65.10 Systemic inflammatory response syndrome (SIRS) of non-infectious origin without acute organ dysfunction; E87.1 Hypo-osmolality and hyponatremia; G40.909 Epilepsy, unspecified, not intractable, without status epilepticus; G89.29 Other chronic pain; E83.42 Hypomagnesemia; F43.10 Post-traumatic stress disorder, unspecified; D63.8 Anemia in other chronic diseases classified elsewhere; I95.9 Hypotension, unspecified; E87.6 Hypokalemia; T42.75XA Adverse effect of unspecified antiepileptic and sedative-hypnotic drugs, initial encounter; K72.90 Hepatic failure, unspecified without coma; E88.09 Other disorders of plasma-protein metabolism, not elsewhere classified; F10.220 Alcohol dependence with intoxication, uncomplicated; F10.259 Alcohol dependence with alcohol-induced psychotic disorder, unspecified; K70.30 Alcoholic cirrhosis of liver without ascites; F17.210 Nicotine dependence, cigarettes, uncomplicated; F41.8 Other specified anxiety disorders; I10 Essential (primary) hypertension; J45.20 Mild intermittent asthma, uncomplicated; Z88.8 Allergy status to other drugs, medicaments and biological substances; Z98.890 Other specified postprocedural states; Z79.899 Other long term (current) drug therapy; Z71.41 Alcohol abuse counseling and surveillance of alcoholic; Y90.1 Blood alcohol level of 20-39 mg/100 ml; Z28.21 Immunization not carried out because of patient refusal
CPT/HCPCS: 36415; 49083; 51701; 70450; 71045; 80048; 80053; 80069; 80177; 81003; 82042; 82140; 82803; 82945; 83605; 83735; 84100; 84157; 84478; 85025; 85027; 85610; 87040; 87070; 87205; 89051; 92526; 92610; 93005; 93010; 94640; 94760; 94762; 96365; 96366; 96367; 96368; 96375; 96376; 97110; 97161; 97166; 97530; 97535; 99285-25; A9270; C1751; G0378; G0480; J0696; J1953; J2060; J3010; J3411; J3475; J7030; J7120

== ENCOUNTER 2021-02-10 13:22 | Day surgery (SDC) | payer OTHER ==
[~2021-02-10 13:22] MED LIST changes: +FURO40 PO; +KLOR-CON 1010 ME5 PO
== END 2021-02-10 16:01 | disposition home or self-care (01) ==
LOC: US 13:22
DX: R18.8 Other ascites (principal); E87.70 Fluid overload, unspecified
CPT/HCPCS: 49083; 96365; P9046

== ENCOUNTER 2021-02-17 01:31 | Observation (INO) | payer OTHER ==
[~2021-02-17] VITALS: Ht 160 cm; Wt 72.0 kg
[2021-02-17 02:59] LABS: BASOPHILS ABSOLUTE AUTO 0.03 K/mm3 (0.00-0.23); BASOPHILS PERCENT AUTO 0 % (0-2); EOSINOPHILS ABSOLUTE AUTO 0.24 K/mm3 (0.00-0.68); EOSINOPHILS PERCENT AUTO 3 % (0-6); Hematocrit 31.9 % (33.0-51.0); Hemoglobin 9.9 g/dL (11.5-16.0); IMMATURE GRAN ABSOLUTE AUTO 0.02 K/mm3 (0.00-0.10); IMMATURE GRAN PERCENT AUTO 0 % (0-1); LYMPHOCYTES ABSOLUTE AUTO 2.32 K/mm3 (0.84-5.20); LYMPHOCYTES PERCENT AUTO 25 % (21-46); MONOCYTES ABSOLUTE AUTO 0.76 K/mm3 (0.16-1.47); MONOCYTES PERCENT AUTO 8 % (4-13); Mean Corpuscular HGB 30.8 pg (26.0-34.0); Mean Corpuscular Volume 99 fL (80-100); Mean Platelet Volume 11.2 fL (9.1-12.4); NEUTROPHILS ABSOLUTE AUTO 5.89 K/mm3 (1.96-9.15); NEUTROPHILS PERCENT AUTO 64 % (41-73); Platelet Count 217 K/mm3 (150-400); RDW Coefficient Variation 17.9 % (11.7-14.2); RDW Standard Deviation 65.3 fL (35.1-46.3); Red Blood Cell Count 3.21 M/mm3 (3.80-5.20); White Blood Cell Count 9.26 K/mm3 (4.00-11.30)
[2021-02-17 03:09] LABS: Source, Urine Clean Catch
[2021-02-17 03:12] LABS: Bilirubin, Urine Neg (Neg); Blood, Urine Neg (Neg); Glucose Qualitative, Urine Neg (Neg); Ketones, Urine Neg (Neg); Leukocyte Esterase, Urine Neg (Neg); Nitrite, Urine Neg (Neg); Protein, Urine Neg (Neg); Specific Gravity, Urine 1.015 (1.003-1.022); Urobilinogen, Urine NORM (Normal)
[2021-02-17 03:15] LABS: Alanine Aminotransfer (ALT/SGP 24 U/L (12-78); Albumin, Blood 3.1 g/dL (3.4-5.0); Albumin/Globulin Ratio 0.6 (0.8-1.8); Alk Phos 99 U/L (50-136); Anion Gap 9 mmol/L (6-16); Aspartate Aminotrans (AST/SGOT 45 U/L (12-37); Bilirubin, Total 2.2 mg/dL (0.1-1.0); Blood Urea Nitrogen 3 mg/dL (8-24); Bun/Creatinine Ratio 6.6 (12.0-20.0); CO2, Blood 24 mmol/L (21-32); Calcium, Blood 9.3 mg/dL (8.5-10.1); Chloride, Blood 104 mmol/L (98-108); Creatinine, Blood 0.46 mg/dL (0.40-1.00); Ethanol (Alcohol), Blood, Med 215 mg/dL; Globulin, Blood 5.4 g/dL (2.2-4.0); Glomerular Filtration Rate >60 (60-); Glucose, Blood 110 mg/dL (70-99); Potassium, Blood 3.6 mmol/L (3.5-5.5); Sodium, Blood 137 mmol/L (136-145); Total Protein, Blood 8.5 g/dL (6.4-8.2); Troponin I <0.015 ng/mL (0.000-0.040)
[2021-02-17 03:24] LABS: Appearance, Urine Clear (Clear); Color, Urine Yellow (P-Yellow)
[2021-02-17 03:44] LABS: U Amphetamine Screen Not Detected; U Barbituate Screen Not Detected; U Benzodiazapine Screen DETECTED; U Buprenorphine Screen Not Detected; U Cannabinoids Screen DETECTED; U Cocaine Screen Not Detected; U Methadone Screen Not Detected; U Methamphetamine Screen Not Detected; U Opiates Screen Not Detected; U Oxycodone Screen Not Detected; U Phencyclidine Screen Not Detected; U Propoxyphene Screen Not Detected
[2021-02-17 03:52] LABS: Influenza A, PCR NEGATIVE (NEGATIVE); Influenza B, PCR NEGATIVE (NEGATIVE); Resp Syncytial Virus, PCR NEGATIVE (NEGATIVE); SARS-Cov-2 (COVID-19) PCR, MMC NEGATIVE (NEGATIVE)
[2021-02-17 05:36] LABS: International Normalized Ratio 1.26
[2021-02-17 09:33] LABS: Automated BF WBC Count 0.217 K/mm3 (0-999); Body Fluid WBC Count 217 /mm3 (0-999)
[2021-02-17 09:44] LABS: Albumin, Body Fluid 1.4 g/dL
[2021-02-17 09:56] LABS: Lactate Dehydrogenase, Body Fl 71 U/L
[2021-02-17 10:02] LABS: Protein, Body Fluid 2.8 g/dL
[2021-02-17 10:06] LABS: RBC Count, Body Fluid 138 /mm3 (0-0)
[2021-02-17 10:12] LABS: Color, Body Fluid L Yellow (None-Yellow); Total Cell Count, Body Fluid 100
[2021-02-17 10:13] LABS: Appearance, Body Fluid Clear (Clear)
[2021-02-18 05:18] LABS: BASOPHILS ABSOLUTE AUTO 0.01 K/mm3 (0.00-0.23); BASOPHILS PERCENT AUTO 0 % (0-2); EOSINOPHILS ABSOLUTE AUTO 0.23 K/mm3 (0.00-0.68); EOSINOPHILS PERCENT AUTO 3 % (0-6); Hematocrit 26.8 % (33.0-51.0); Hemoglobin 8.1 g/dL (11.5-16.0); IMMATURE GRAN ABSOLUTE AUTO 0.03 K/mm3 (0.00-0.10); IMMATURE GRAN PERCENT AUTO 0 % (0-1); LYMPHOCYTES ABSOLUTE AUTO 1.53 K/mm3 (0.84-5.20); LYMPHOCYTES PERCENT AUTO 19 % (21-46); MONOCYTES ABSOLUTE AUTO 0.62 K/mm3 (0.16-1.47); MONOCYTES PERCENT AUTO 8 % (4-13); Mean Corpuscular HGB 30.2 pg (26.0-34.0); Mean Corpuscular HGB Conc 30.2 g/dL (31.5-36.5); Mean Corpuscular Volume 100 fL (80-100); Mean Platelet Volume 11.4 fL (9.1-12.4); NEUTROPHILS ABSOLUTE AUTO 5.67 K/mm3 (1.96-9.15); NEUTROPHILS PERCENT AUTO 70 % (41-73); Platelet Count 155 K/mm3 (150-400); RDW Coefficient Variation 17.8 % (11.7-14.2); RDW Standard Deviation 65.2 fL (35.1-46.3); Red Blood Cell Count 2.68 M/mm3 (3.80-5.20); White Blood Cell Count 8.09 K/mm3 (4.00-11.30)
[2021-02-18 05:54] LABS: Alanine Aminotransfer (ALT/SGP 18 U/L (12-78); Albumin, Blood 2.4 g/dL (3.4-5.0); Albumin/Globulin Ratio 0.6 (0.8-1.8); Alk Phos 85 U/L (50-136); Anion Gap 7 mmol/L (6-16); Aspartate Aminotrans (AST/SGOT 36 U/L (12-37); Bilirubin, Total 1.9 mg/dL (0.1-1.0); Blood Urea Nitrogen 6 mg/dL (8-24); CO2, Blood 27 mmol/L (21-32); Calcium, Blood 8.6 mg/dL (8.5-10.1); Chloride, Blood 104 mmol/L (98-108); Creatinine, Blood 0.46 mg/dL (0.40-1.00); Glomerular Filtration Rate >60 (60-); Glucose, Blood 91 mg/dL (70-99); Potassium, Blood 3.5 mmol/L (3.5-5.5); Sodium, Blood 138 mmol/L (136-145)
[2021-02-18 05:55] LABS: Total Protein, Blood 6.4 g/dL (6.4-8.2)
--- NOTE | 2021-02-18 06:29 | NUR ---
SHIFT SUMMARY ASSUMED CARE AT 1900. PT AAOX3 WITH PERIODS OF FORGETFULNESS. CIWA ASSESSMENTS COMPLETED, LAST SCORE AT 0400 WAS 7. PT MEDICATED WITH PRN LIBRIUM 50MG AT 0125 WHEN CIWA SCORE WAS 6 AND PT NOTED WITH TREMORS, MILD SWEATING AND SOME ANXIETY. SEIZURE PRECAUTION. YESTERDAY MORNING, 02/17/21, PT HAS U/S GUIDED PARACENTESIS AND ABOUT 3L WAS REMOVED. PT REMAINS ON CARDIAC TELEMETRY MONITORING, BOX# [id number], SINUS RHYTHM, HR 90s, VERIFIED WITH EM [employer]. PT REMAINS ON 2L O2 VIA NC, O2 SATS >97%; PT REPORTS THAT SHE IS SUPPOSED TO BE ON 2L O2 AT HOME BUT HAD DIFFICULTY GETTING THE OXYGEN. PT STATES SHE NEEDS IT BECAUSE SHE GETS SOB WITH EXERTION OR AMBULATING MODERATE DISTANCES USING HER SEATED 4 WHEEL ROLLING WALKER. DENIES HX OF COPD. PT WITH OCCASIONAL COARSE NONPRODUCTIVE COUGH. BED IS IN LOW POSITION WITH THE CALL LIGHT WITHIN EASY REACH AND BED ALARM ACTIVATED.
--- NOTE | 2021-02-18 11:40 | NUR ---
Patient is a [facility] patient who was transferred to [facility] on 02/17/2021 due sepsis. Patient is to discharge- 02/18/2021 with resumption of home health orders. Gathered supporting documentation for resumption (face sheet, discharge order, med list, and H&P) and faxed to [facility] for review. No further interventions required. Kristina Catherine Referral Liaison
--- NOTE | 2021-02-18 13:30 | NUR ---
DISCHARGE INSTRUCTIONS WRITTEN AND DISCUSSED WITH PT EXPRESSING UNDERSTANDING. 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 TO CURB VIA W/C.
== END 2021-02-18 13:32 | disposition home or self-care (01) ==
LOC: ER 01:31 → ERHOLD 01:32 → MEDS 16:23
PROVIDERS: Emergency Medicine; ADMIT Internal Medicine
DX: R10.9 Unspecified abdominal pain (principal); F10.229 Alcohol dependence with intoxication, unspecified; R65.10 Systemic inflammatory response syndrome (SIRS) of non-infectious origin without acute organ dysfunction; G40.909 Epilepsy, unspecified, not intractable, without status epilepticus; F43.10 Post-traumatic stress disorder, unspecified; F41.8 Other specified anxiety disorders; K70.31 Alcoholic cirrhosis of liver with ascites; G93.40 Encephalopathy, unspecified; I10 Essential (primary) hypertension; F17.210 Nicotine dependence, cigarettes, uncomplicated; Z88.8 Allergy status to other drugs, medicaments and biological substances; Z20.822 Contact with and (suspected) exposure to COVID-19
CPT/HCPCS: 0241U; 36415; 49083; 70450; 71045; 80053; 81003; 82042; 82140; 83605; 83615; 83690; 84157; 84484; 85025; 85610; 85730; 87040; 87070; 87205; 88108; 88305; 89051; 93005; 93010; 96365; 96366; 96367; 96372; 96376; 99285-25; A9270; G0378; G0480; J0696; J1650; J1953; J3411; J3475; J7030; J7042

== ENCOUNTER 2021-02-28 11:44 | Emergency (ER) | payer OTHER ==
[~2021-02-28] VITALS: Ht 157.5 cm; Wt 72.6 kg
[2021-02-28 12:31] LABS: BASOPHILS ABSOLUTE AUTO 0.03 K/mm3 (0.00-0.23); BASOPHILS PERCENT AUTO 0 % (0-2); EOSINOPHILS ABSOLUTE AUTO 0.16 K/mm3 (0.00-0.68); EOSINOPHILS PERCENT AUTO 2 % (0-6); Hematocrit 30.2 % (33.0-51.0); Hemoglobin 9.5 g/dL (11.5-16.0); IMMATURE GRAN ABSOLUTE AUTO 0.02 K/mm3 (0.00-0.10); IMMATURE GRAN PERCENT AUTO 0 % (0-1); LYMPHOCYTES ABSOLUTE AUTO 1.74 K/mm3 (0.84-5.20); LYMPHOCYTES PERCENT AUTO 25 % (21-46); MONOCYTES ABSOLUTE AUTO 0.56 K/mm3 (0.16-1.47); MONOCYTES PERCENT AUTO 8 % (4-13); Mean Corpuscular HGB 30.1 pg (26.0-34.0); Mean Corpuscular HGB Conc 31.5 g/dL (31.5-36.5); Mean Corpuscular Volume 96 fL (80-100); Mean Platelet Volume 10.9 fL (9.1-12.4); NEUTROPHILS ABSOLUTE AUTO 4.58 K/mm3 (1.96-9.15); NEUTROPHILS PERCENT AUTO 65 % (41-73); Platelet Count 108 K/mm3 (150-400); RDW Coefficient Variation 18.6 % (11.7-14.2); RDW Standard Deviation 65.6 fL (35.1-46.3); Red Blood Cell Count 3.16 M/mm3 (3.80-5.20); White Blood Cell Count 7.09 K/mm3 (4.00-11.30)
[2021-02-28 12:50] LABS: Alanine Aminotransfer (ALT/SGP 25 U/L (12-78); Albumin, Blood 2.8 g/dL (3.4-5.0); Albumin/Globulin Ratio 0.6 (0.8-1.8); Alk Phos 117 U/L (50-136); Anion Gap 11 mmol/L (6-16); Aspartate Aminotrans (AST/SGOT 65 U/L (12-37); Blood Urea Nitrogen 5 mg/dL (8-24); CO2, Blood 26 mmol/L (21-32); Calcium, Blood 8.6 mg/dL (8.5-10.1); Chloride, Blood 101 mmol/L (98-108); Creatinine, Blood 0.38 mg/dL (0.40-1.00); Glomerular Filtration Rate >60 (60-); Glucose, Blood 86 mg/dL (70-99); Potassium, Blood 3.5 mmol/L (3.5-5.5); Sodium, Blood 138 mmol/L (136-145); Total Protein, Blood 7.8 g/dL (6.4-8.2)
[2021-02-28 13:25] LABS: International Normalized Ratio 1.22; Prothrombin Time Results 12.6 Sec (9.7-11.5)
[2021-02-28] MEDS ORDERED: CHLO25 PO (13:51)
== END 2021-02-28 14:33 | disposition home or self-care (01) ==
LOC: ER 11:44
PROVIDERS: Emergency Medicine
DX: K70.9 Alcoholic liver disease, unspecified (principal); F10.239 Alcohol dependence with withdrawal, unspecified; I10 Essential (primary) hypertension; F17.210 Nicotine dependence, cigarettes, uncomplicated; R56.9 Unspecified convulsions; F43.9 Reaction to severe stress, unspecified; Y90.9 Presence of alcohol in blood, level not specified; Z79.899 Other long term (current) drug therapy; Z88.1 Allergy status to other antibiotic agents
CPT/HCPCS: 36415; 80053; 82140; 85025; 85610; 85730; 93005; 93010; 99285-25; A9270

== ENCOUNTER 2021-03-06 14:51 | Day surgery (SDC) | payer OTHER | END 2021-03-06 15:55 | disposition home or self-care (01) | LOC: ATC 14:51 → ORSCMMR 14:51 → ATC 15:55 | DX: E87.70 Fluid overload, unspecified (principal); I12.9 Hypertensive chronic kidney disease with stage 1 through stage 4 chronic kidney disease, or unspecified chronic kidney disease; N18.2 Chronic kidney disease, stage 2 (mild); D63.1 Anemia in chronic kidney disease; N25.81 Secondary hyperparathyroidism of renal origin; E55.9 Vitamin D deficiency, unspecified; N28.1 Cyst of kidney, acquired; F17.210 Nicotine dependence, cigarettes, uncomplicated; Z88.8 Allergy status to other drugs, medicaments and biological substances | CPT/HCPCS: 49083; 96365; P9046 ==

== ENCOUNTER 2021-03-11 14:08 | Day surgery (SDC) | payer OTHER | END 2021-03-11 16:35 | disposition home or self-care (01) | LOC: US 14:08 → ATC 14:08 | DX: R18.8 Other ascites (principal); E87.70 Fluid overload, unspecified | CPT/HCPCS: 49083; P9046 ==

== ENCOUNTER 2021-03-21 09:57 | Day surgery (SDC) | payer OTHER | END 2021-03-21 12:00 | disposition home or self-care (01) | LOC: US 09:57 | DX: R18.8 Other ascites (principal) | CPT/HCPCS: 49083 ==

== ENCOUNTER 2021-03-24 09:38 | Day surgery (SDC) | payer OTHER | END 2021-03-24 23:15 | disposition home or self-care (01) | LOC: US 09:38 | DX: E87.70 Fluid overload, unspecified (principal); R18.8 Other ascites | CPT/HCPCS: 76705 ==

== ENCOUNTER 2021-03-31 09:59 | Day surgery (SDC) | payer OTHER | END 2021-03-31 23:29 | disposition home or self-care (01) | LOC: ATC 09:59 → US 09:59 → ATC 23:29 | DX: E87.70 Fluid overload, unspecified (principal); R18.8 Other ascites; I12.9 Hypertensive chronic kidney disease with stage 1 through stage 4 chronic kidney disease, or unspecified chronic kidney disease; N18.2 Chronic kidney disease, stage 2 (mild); E55.9 Vitamin D deficiency, unspecified; F17.210 Nicotine dependence, cigarettes, uncomplicated; Z88.8 Allergy status to other drugs, medicaments and biological substances; Z88.1 Allergy status to other antibiotic agents | CPT/HCPCS: 49083; P9046 ==

== ENCOUNTER 2021-04-07 09:51 | Day surgery (SDC) | payer OTHER | END 2021-04-07 23:36 | disposition home or self-care (01) | LOC: US 09:51 | DX: R18.8 Other ascites (principal); K72.90 Hepatic failure, unspecified without coma | CPT/HCPCS: 49083 ==

== ENCOUNTER 2021-04-14 10:48 | Day surgery (SDC) | payer OTHER | END 2021-04-14 23:28 | disposition home or self-care (01) | LOC: US 10:48 | DX: R18.8 Other ascites (principal); K72.90 Hepatic failure, unspecified without coma | CPT/HCPCS: 49083 ==

== ENCOUNTER 2021-04-17 21:17 | Inpatient (IN) | payer OTHER ==
[~2021-04-17] VITALS: Ht 157.5 cm; Wt 68.2 kg
[2021-04-17 22:42] LABS: BASOPHILS ABSOLUTE AUTO 0.02 K/mm3 (0.00-0.23); BASOPHILS PERCENT AUTO 0 % (0-2); EOSINOPHILS ABSOLUTE AUTO 0.12 K/mm3 (0.00-0.68); EOSINOPHILS PERCENT AUTO 3 % (0-6); Hematocrit 26.3 % (33.0-51.0); Hemoglobin 8.6 g/dL (11.5-16.0); IMMATURE GRAN PERCENT AUTO 0 % (0-1); LYMPHOCYTES ABSOLUTE AUTO 1.57 K/mm3 (0.84-5.20); LYMPHOCYTES PERCENT AUTO 34 % (21-46); MONOCYTES ABSOLUTE AUTO 0.51 K/mm3 (0.16-1.47); MONOCYTES PERCENT AUTO 11 % (4-13); Mean Corpuscular HGB 30.4 pg (26.0-34.0); Mean Corpuscular HGB Conc 32.7 g/dL (31.5-36.5); Mean Corpuscular Volume 93 fL (80-100); NEUTROPHILS ABSOLUTE AUTO 2.44 K/mm3 (1.96-9.15); NEUTROPHILS PERCENT AUTO 52 % (41-73); RDW Coefficient Variation 22.4 % (11.7-14.2); RDW Standard Deviation 76.7 fL (35.1-46.3); Red Blood Cell Count 2.83 M/mm3 (3.80-5.20); White Blood Cell Count 4.66 K/mm3 (4.00-11.30)
[2021-04-17 22:45] LABS: Platelet Count 25 K/mm3 (150-400)
[2021-04-17 22:53] LABS: Alanine Aminotransfer (ALT/SGP 49 U/L (12-78); Albumin, Blood 2.4 g/dL (3.4-5.0); Albumin/Globulin Ratio 0.4 (0.8-1.8); Alk Phos 215 U/L (50-136); Anion Gap 8 mmol/L (6-16); Aspartate Aminotrans (AST/SGOT 233 U/L (12-37); Bilirubin, Total 2.2 mg/dL (0.1-1.0); Blood Urea Nitrogen 7 mg/dL (8-24); Bun/Creatinine Ratio 14.6 (12.0-20.0); CO2, Blood 24 mmol/L (21-32); Calcium, Blood 8.3 mg/dL (8.5-10.1); Chloride, Blood 99 mmol/L (98-108); Creatinine, Blood 0.48 mg/dL (0.40-1.00); Globulin, Blood 5.7 g/dL (2.2-4.0); Glomerular Filtration Rate >60 (60-); Glucose, Blood 116 mg/dL (70-99); Sodium, Blood 131 mmol/L (136-145); Total Protein, Blood 8.1 g/dL (6.4-8.2)
[2021-04-17 23:32] LABS: International Normalized Ratio 1.26
[2021-04-18 03:51] LABS: BASOPHILS ABSOLUTE AUTO 0.01 K/mm3 (0.00-0.23); BASOPHILS PERCENT AUTO 0 % (0-2); EOSINOPHILS ABSOLUTE AUTO 0.12 K/mm3 (0.00-0.68); EOSINOPHILS PERCENT AUTO 4 % (0-6); Hemoglobin 7.4 g/dL (11.5-16.0); IMMATURE GRAN PERCENT AUTO 0 % (0-1); LYMPHOCYTES ABSOLUTE AUTO 1.23 K/mm3 (0.84-5.20); LYMPHOCYTES PERCENT AUTO 42 % (21-46); MONOCYTES ABSOLUTE AUTO 0.31 K/mm3 (0.16-1.47); MONOCYTES PERCENT AUTO 11 % (4-13); Mean Corpuscular HGB 30.2 pg (26.0-34.0); Mean Corpuscular HGB Conc 32.2 g/dL (31.5-36.5); Mean Corpuscular Volume 94 fL (80-100); NEUTROPHILS ABSOLUTE AUTO 1.29 K/mm3 (1.96-9.15); NEUTROPHILS PERCENT AUTO 44 % (41-73); RDW Coefficient Variation 22.5 % (11.7-14.2); RDW Standard Deviation 77.6 fL (35.1-46.3); Red Blood Cell Count 2.45 M/mm3 (3.80-5.20); White Blood Cell Count 2.96 K/mm3 (4.00-11.30)
[2021-04-18 04:08] LABS: Platelet Count 33 K/mm3 (150-400)
--- NOTE | 2021-04-18 05:01 | NUR ---
ARRIVAL TO ICU PT ARRIVED TO ICU 16 AT 0315 VIA ED BED AND WAS ABLE TO SLIDE SELF OVER TO ICU BED. PT IS ALERT/ORIENTED X4 AND ABLE TO MAKE HER NEEDS KNOWN; CIWA SCORE 5. SPO2 >98% ON 2L NC. HR 90-100. SBP 100'S; MAP 65-70. POSSIBLE HERNIA NOTED TO MIDDLE OF ABD; TOLERATING PO FLUIDS WELL; HX OF PARACENTESIS ON Wednesday04/14/21; PROTONIX AND OCTRIOTIDE INFUSING. URINARY INCONTINENCE NOTED; ATTEND IN PLACE. SEE ADMISSION ASSESSMENT FOR FULL ASSESSMENT. CALLED DR FAUST REGARDING CRITIAL PLT OF 33. NO NEW ORDERS PROVIDED.
--- NOTE | 2021-04-18 06:33 | NUR ---
END OF SHIFT SUMMARY NO ACUTE EVENTS SINCE LAST NOTE. PT SLEEPING WHEN NOT STIMULATED, CONT TO BE ALERT/ORIENTED X4. AFEBRILE. SPO2 >98% ON 2L. HR 70-80'S. SBP 90-100; MAP 65-70. NO EPISODES OF BLOODY STOOL, NAUSEA, OR EMISIS. PROTONIX AND SANDOSTATIN CONT INFUSING. WILL REPORT TO AM RN WHEN AVAILABLE.
[2021-04-18 06:57] LABS: Alanine Aminotransfer (ALT/SGP 41 U/L (12-78); Albumin, Blood 2.1 g/dL (3.4-5.0); Albumin/Globulin Ratio 0.4 (0.8-1.8); Alk Phos 179 U/L (50-136); Anion Gap 7 mmol/L (6-16); Aspartate Aminotrans (AST/SGOT 216 U/L (12-37); Bilirubin, Total 2.4 mg/dL (0.1-1.0); Blood Urea Nitrogen 6 mg/dL (8-24); Bun/Creatinine Ratio 12.6 (12.0-20.0); CO2, Blood 25 mmol/L (21-32); Calcium, Blood 7.9 mg/dL (8.5-10.1); Chloride, Blood 102 mmol/L (98-108); Creatinine, Blood 0.48 mg/dL (0.40-1.00); Globulin, Blood 4.7 g/dL (2.2-4.0); Glomerular Filtration Rate >60 (60-); Glucose, Blood 93 mg/dL (70-99); Magnesium, Blood 1.9 mg/dL (1.6-2.4); Phosphorus, Blood 3.9 mg/dL (2.5-4.9); Potassium, Blood 4.4 mmol/L (3.5-5.5); Sodium, Blood 134 mmol/L (136-145); Total Protein, Blood 6.8 g/dL (6.4-8.2)
--- NOTE | 2021-04-18 07:30 | NUR ---
TOOK OVER CARE OF PT AT 0700, PT RESTING ON 2LNC.
--- NOTE | 2021-04-18 10:23 | NUR ---
Spiritual care visit Responding to a pt. spiritual care request. Pt. is awake in bed and welcomes my visit. Pt. is unsettled about her GI Bleed, and family members who are apparently stuck in a foreign country. Listen empathetically and attempt to normalize the pt. experience. Pt. displays evidence of understanding and openness to be a positive partner in her medical care. Discuss history of pts. himanshu experience. Pt. also displays evidence of lowered anxiety. Prayed with Pt. Pt. verbalized gratitude for the spiritual care visit.
[2021-04-18 10:24] LABS: BASOPHILS ABSOLUTE AUTO 0.01 K/mm3 (0.00-0.23); BASOPHILS PERCENT AUTO 1 % (0-2); EOSINOPHILS ABSOLUTE AUTO 0.13 K/mm3 (0.00-0.68); EOSINOPHILS PERCENT AUTO 6 % (0-6); Hematocrit 23.6 % (33.0-51.0); Hemoglobin 7.4 g/dL (11.5-16.0); IMMATURE GRAN ABSOLUTE AUTO 0.01 K/mm3 (0.00-0.10); IMMATURE GRAN PERCENT AUTO 1 % (0-1); LYMPHOCYTES PERCENT AUTO 37 % (21-46); MONOCYTES ABSOLUTE AUTO 0.22 K/mm3 (0.16-1.47); MONOCYTES PERCENT AUTO 10 % (4-13); Mean Corpuscular HGB 30.2 pg (26.0-34.0); Mean Corpuscular HGB Conc 31.4 g/dL (31.5-36.5); Mean Corpuscular Volume 96 fL (80-100); NEUTROPHILS ABSOLUTE AUTO 0.99 K/mm3 (1.96-9.15); NEUTROPHILS PERCENT AUTO 46 % (41-73); RDW Coefficient Variation 22.5 % (11.7-14.2); RDW Standard Deviation 79.7 fL (35.1-46.3); Red Blood Cell Count 2.45 M/mm3 (3.80-5.20); White Blood Cell Count 2.16 K/mm3 (4.00-11.30)
[2021-04-18 10:38] LABS: Platelet Count 19 K/mm3 (150-400)
[2021-04-18 15:10] LABS: Influenza A, PCR NEGATIVE (NEGATIVE); Influenza B, PCR NEGATIVE (NEGATIVE); Resp Syncytial Virus, PCR NEGATIVE (NEGATIVE); SARS-Cov-2 (COVID-19) PCR, MMC NEGATIVE (NEGATIVE)
--- NOTE | 2021-04-18 16:00 | NUR ---
SUMMARY NEURO: PT ALERT AND FOLLOWING COMMANDS. CIWA SCALE INITIATED DT TREMORS, INTERMITTENT AUDITORY HALLUCINATIONS ETC. CARDIAC; INTERMITTENT SINUS TACH LUNGS; ON 2L NC, PT WEARS THIS AT BASELINE SKIN; BRUISING THROUGHOUT, PLATLETS 19. 2 UNITS OF PLATLETES GIVEN SINCE ADMIT. GI/; PT INCONTINENT, ONE SOFT BROWN BM TODAY. SIGNS OF DIASTESIS RECTI. NO VISUAL SIGNS OF ACTIVE BLEEDING. PT GET SCHEDULED PARACENTESIS AT FACILITY ON MONDAYS. PT HAS .2 OF PRECEDEX, OCTREATIDE AND PROTONIX DRIP AT THIS TIME.
[2021-04-18 16:57] LABS: BASOPHILS ABSOLUTE AUTO 0.01 K/mm3 (0.00-0.23); BASOPHILS PERCENT AUTO 1 % (0-2); EOSINOPHILS ABSOLUTE AUTO 0.08 K/mm3 (0.00-0.68); EOSINOPHILS PERCENT AUTO 4 % (0-6); Hematocrit 23.1 % (33.0-51.0); Hemoglobin 7.3 g/dL (11.5-16.0); IMMATURE GRAN ABSOLUTE AUTO 0.01 K/mm3 (0.00-0.10); IMMATURE GRAN PERCENT AUTO 1 % (0-1); LYMPHOCYTES ABSOLUTE AUTO 0.44 K/mm3 (0.84-5.20); LYMPHOCYTES PERCENT AUTO 22 % (21-46); MONOCYTES ABSOLUTE AUTO 0.12 K/mm3 (0.16-1.47); MONOCYTES PERCENT AUTO 6 % (4-13); Mean Corpuscular HGB 30.5 pg (26.0-34.0); Mean Corpuscular HGB Conc 31.6 g/dL (31.5-36.5); Mean Corpuscular Volume 97 fL (80-100); NEUTROPHILS ABSOLUTE AUTO 1.38 K/mm3 (1.96-9.15); NEUTROPHILS PERCENT AUTO 68 % (41-73); RDW Standard Deviation 78.4 fL (35.1-46.3); Red Blood Cell Count 2.39 M/mm3 (3.80-5.20); White Blood Cell Count 2.04 K/mm3 (4.00-11.30)
[2021-04-18 16:59] LABS: Platelet Count 18 K/mm3 (150-400)
--- NOTE | 2021-04-18 17:18 | NUR ---
DR. ASIF NOTIFIED OF PLATLET COUNT CONTINUING TO TREND DOWN EVEN AFTER PLATLET TRANSFUSIONS. NO SIGNS OF BLEEDING NOTED, STOOLS HAVE BEEN NORMAL IN COLOR, VITALS AT PT'S BASELINE. HR IN 90'S BP 99/52.
--- NOTE | 2021-04-18 19:46 | NUR ---
ASSUMED CARE PATIENT ARROUSES TO VOICE/ A&O X 3-4/ NO COMPLAINTS OF PAIN OR ANXIETY AT THIS TIME. NSR 70S-80S. 2L NC. NO EVIDENCE OF BLEEDING. TOLERATING CLEAR LIQUID DIET. WILL CONTINUE TO MONITOR.
[2021-04-18 22:35] LABS: BASOPHILS ABSOLUTE AUTO 0.01 K/mm3 (0.00-0.23); BASOPHILS PERCENT AUTO 1 % (0-2); EOSINOPHILS ABSOLUTE AUTO 0.09 K/mm3 (0.00-0.68); EOSINOPHILS PERCENT AUTO 4 % (0-6); Hematocrit 21.2 % (33.0-51.0); Hemoglobin 6.7 g/dL (11.5-16.0); Mean Corpuscular HGB 30.5 pg (26.0-34.0); Mean Corpuscular HGB Conc 31.6 g/dL (31.5-36.5); Mean Corpuscular Volume 96 fL (80-100); RDW Coefficient Variation 21.8 % (11.7-14.2); RDW Standard Deviation 77.2 fL (35.1-46.3); White Blood Cell Count 2.13 K/mm3 (4.00-11.30)
[2021-04-18 22:38] LABS: IMMATURE GRAN ABSOLUTE AUTO 0.01 K/mm3 (0.00-0.10); IMMATURE GRAN PERCENT AUTO 1 % (0-1); LYMPHOCYTES PERCENT AUTO 28 % (21-46); MONOCYTES ABSOLUTE AUTO 0.22 K/mm3 (0.16-1.47); MONOCYTES PERCENT AUTO 10 % (4-13); NEUTROPHILS PERCENT AUTO 56 % (41-73)
[2021-04-18 22:40] LABS: Platelet Count 18 K/mm3 (150-400)
[2021-04-19 04:10] LABS: BASOPHILS ABSOLUTE AUTO 0.02 K/mm3 (0.00-0.23); BASOPHILS PERCENT AUTO 1 % (0-2); EOSINOPHILS ABSOLUTE AUTO 0.14 K/mm3 (0.00-0.68); EOSINOPHILS PERCENT AUTO 5 % (0-6); Hematocrit 23.2 % (33.0-51.0); Hemoglobin 7.5 g/dL (11.5-16.0); Mean Corpuscular HGB 30.6 pg (26.0-34.0); Mean Corpuscular HGB Conc 32.3 g/dL (31.5-36.5); Mean Corpuscular Volume 95 fL (80-100); RDW Coefficient Variation 20.5 % (11.7-14.2); Red Blood Cell Count 2.45 M/mm3 (3.80-5.20); White Blood Cell Count 2.98 K/mm3 (4.00-11.30)
[2021-04-19 04:17] LABS: IMMATURE GRAN ABSOLUTE AUTO 0.01 K/mm3 (0.00-0.10); IMMATURE GRAN PERCENT AUTO 0 % (0-1); LYMPHOCYTES ABSOLUTE AUTO 1.03 K/mm3 (0.84-5.20); LYMPHOCYTES PERCENT AUTO 35 % (21-46); MONOCYTES ABSOLUTE AUTO 0.39 K/mm3 (0.16-1.47); MONOCYTES PERCENT AUTO 13 % (4-13); NEUTROPHILS ABSOLUTE AUTO 1.39 K/mm3 (1.96-9.15); NEUTROPHILS PERCENT AUTO 47 % (41-73); Platelet Count 18 K/mm3 (150-400)
[2021-04-19 04:25] LABS: Alanine Aminotransfer (ALT/SGP 30 U/L (12-78); Albumin, Blood 1.8 g/dL (3.4-5.0); Albumin/Globulin Ratio 0.4 (0.8-1.8); Alk Phos 151 U/L (50-136); Anion Gap 5 mmol/L (6-16); Aspartate Aminotrans (AST/SGOT 146 U/L (12-37); Bilirubin, Total 2.9 mg/dL (0.1-1.0); Blood Urea Nitrogen 7 mg/dL (8-24); Bun/Creatinine Ratio 12.9 (12.0-20.0); CO2, Blood 27 mmol/L (21-32); Calcium, Blood 7.7 mg/dL (8.5-10.1); Chloride, Blood 99 mmol/L (98-108); Creatinine, Blood 0.54 mg/dL (0.40-1.00); Globulin, Blood 4.3 g/dL (2.2-4.0); Glomerular Filtration Rate >60 (60-); Glucose, Blood 116 mg/dL (70-99); Potassium, Blood 3.9 mmol/L (3.5-5.5); Sodium, Blood 131 mmol/L (136-145); Total Protein, Blood 6.1 g/dL (6.4-8.2)
--- NOTE | 2021-04-19 05:58 | NUR ---
PT A&OX4, APPROPRIATE, AND COOPERATIVE. OFF PRECEDEX, PRN LIBRIUM FOR CIWA OF 8. NSR 70S, MAP >65 AFTER 1 UNIT PRBC AND 5MG MIDODRINE. 2L NC. 2 INCONTINENT VOIDS, NO BM OR EVIDENCE OF BLEEDING. TOLERATING CLEAR LIQUID DIET. STILL RECEIVING PROTONIX AND OCTREOTIDE IV CONTINUOUS.
--- NOTE | 2021-04-19 07:14 | NUR ---
PT RESTIN ON BASELINE DOSE OF 2L NC, PROTONIX AND SANDOSTATIN CONTIUOUS DRIPS RUNNING. PRECEDEX WAS TURNED OFF AROUND 2200 04/18/21, LAST DOSE OF LIBRIUM OF 25MG GIVEN AROUND MIDNIGHT PER [employer]DER REPORT.
[2021-04-19 09:43] LABS: BASOPHILS ABSOLUTE AUTO 0.01 K/mm3 (0.00-0.23); BASOPHILS PERCENT AUTO 0 % (0-2); EOSINOPHILS ABSOLUTE AUTO 0.17 K/mm3 (0.00-0.68); EOSINOPHILS PERCENT AUTO 6 % (0-6); Hematocrit 26.8 % (33.0-51.0); Hemoglobin 8.5 g/dL (11.5-16.0); IMMATURE GRAN ABSOLUTE AUTO 0.01 K/mm3 (0.00-0.10); IMMATURE GRAN PERCENT AUTO 0 % (0-1); LYMPHOCYTES ABSOLUTE AUTO 0.77 K/mm3 (0.84-5.20); LYMPHOCYTES PERCENT AUTO 27 % (21-46); MONOCYTES ABSOLUTE AUTO 0.27 K/mm3 (0.16-1.47); MONOCYTES PERCENT AUTO 9 % (4-13); Mean Corpuscular HGB 30.7 pg (26.0-34.0); Mean Corpuscular HGB Conc 31.7 g/dL (31.5-36.5); Mean Corpuscular Volume 97 fL (80-100); NEUTROPHILS ABSOLUTE AUTO 1.68 K/mm3 (1.96-9.15); NEUTROPHILS PERCENT AUTO 58 % (41-73); RDW Coefficient Variation 20.3 % (11.7-14.2); RDW Standard Deviation 72.9 fL (35.1-46.3); Red Blood Cell Count 2.77 M/mm3 (3.80-5.20); White Blood Cell Count 2.91 K/mm3 (4.00-11.30)
[2021-04-19 09:55] LABS: Platelet Count 23 K/mm3 (150-400)
--- NOTE | 2021-04-19 16:47 | NUR ---
SUMMARY NEURO; PT A/O X4, SLOW TO RESPOND, BASELINE WEAKNESS BLE CARDIAC; NSR, HR AND BP STABLE AT THIS TIME LUNGS; ON BASELINE 2LNC SKIN; SCATTERED BRUISING, PLATLETS STILL CRITICALLY LOW GI/; MULTIPLE INCONTINENT EPISODES OF URINE, ABDOMEN DISTENDED. NORMALLY RECIEVES PARACENTESIS ON MONDAYS. LAST DOSE OF LIBRIUM AROUND NOON OF 25MG, SEE 1600 CIWA
--- NOTE | 2021-04-19 21:05 | NUR ---
ASSUMED CARE PATIENT DROWSY BUT AWAKES TO VOICE. A&OX3-4. COMPLAINS OF LUQ TENDERNESS. HR 70S. SBP 1TEENS-120S. 2L NC. 1 EPISODE OF INCONTINENCE. TOLERATING LIQUIDS. NO EPISODES OF BLEEDING. WILL CONTINUE TO MONITOR.
[2021-04-20 04:36] LABS: BASOPHILS ABSOLUTE AUTO 0.01 K/mm3 (0.00-0.23); BASOPHILS PERCENT AUTO 0 % (0-2); EOSINOPHILS ABSOLUTE AUTO 0.24 K/mm3 (0.00-0.68); EOSINOPHILS PERCENT AUTO 7 % (0-6); Hematocrit 25.7 % (33.0-51.0); Hemoglobin 8.2 g/dL (11.5-16.0); IMMATURE GRAN ABSOLUTE AUTO 0.01 K/mm3 (0.00-0.10); IMMATURE GRAN PERCENT AUTO 0 % (0-1); LYMPHOCYTES PERCENT AUTO 31 % (21-46); MONOCYTES ABSOLUTE AUTO 0.44 K/mm3 (0.16-1.47); MONOCYTES PERCENT AUTO 12 % (4-13); Mean Corpuscular HGB 30.6 pg (26.0-34.0); Mean Corpuscular HGB Conc 31.9 g/dL (31.5-36.5); Mean Corpuscular Volume 96 fL (80-100); NEUTROPHILS ABSOLUTE AUTO 1.76 K/mm3 (1.96-9.15); NEUTROPHILS PERCENT AUTO 49 % (41-73); RDW Coefficient Variation 20.6 % (11.7-14.2); RDW Standard Deviation 72.4 fL (35.1-46.3); Red Blood Cell Count 2.68 M/mm3 (3.80-5.20); White Blood Cell Count 3.56 K/mm3 (4.00-11.30)
[2021-04-20 04:45] LABS: Platelet Count 24 K/mm3 (150-400)
[2021-04-20 04:55] LABS: Alanine Aminotransfer (ALT/SGP 25 U/L (12-78); Albumin, Blood 1.7 g/dL (3.4-5.0); Albumin/Globulin Ratio 0.4 (0.8-1.8); Alk Phos 149 U/L (50-136); Anion Gap 5 mmol/L (6-16); Aspartate Aminotrans (AST/SGOT 118 U/L (12-37); Bilirubin, Total 2.1 mg/dL (0.1-1.0); Blood Urea Nitrogen 7 mg/dL (8-24); Bun/Creatinine Ratio 12.3 (12.0-20.0); CO2, Blood 27 mmol/L (21-32); Calcium, Blood 7.7 mg/dL (8.5-10.1); Chloride, Blood 103 mmol/L (98-108); Creatinine, Blood 0.57 mg/dL (0.40-1.00); Globulin, Blood 4.2 g/dL (2.2-4.0); Glomerular Filtration Rate >60 (60-); Glucose, Blood 105 mg/dL (70-99); Sodium, Blood 135 mmol/L (136-145); Total Protein, Blood 5.9 g/dL (6.4-8.2)
--- NOTE | 2021-04-20 06:26 | NUR ---
A&OX4, CIWA <10, ONE DOSE PRN LIBRIUM. VSS. 2LNC. NO BM. NO EVIDENCE OF BLEEDING. MULTIPLE INCONTINENT VOIDS. TOLERATING PO INTAKE. CONTINUOUS OCTREOTIDE & PROTONIX GTT. WILL REPORT OFF TO MELODY KNAPP.
--- NOTE | 2021-04-20 06:58 | NUR ---
TOOK OVER CARE OF PT AT 0655, PT RESTING ON HOME DOSE OF 2L NC, OCTREATIDE AND PROTONIX DRIP INFUSING. VITALS STABLE AT THIS TIME.
--- NOTE | 2021-04-20 10:53 | NUR ---
REPORT GIVEN TO BRITTANY KNAPP, PT THEN TRANSFERRED TO PCU ROOM 9 AT 1046
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
[2021-04-20 13:09] LABS: Hematocrit 27.3 % (33.0-51.0); Hemoglobin 8.4 g/dL (11.5-16.0)
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
--- NOTE | 2021-04-20 18:08 | NUR ---
SHIFT SUMMARY PATIENT NERUO REMAINS UNCHANGED THIS SHIFT. PATIENT IS MUCH MORE CALM NOW AND APLOGIZED FOR BEHAVIOR EARLIER, SEE PREVIOUS NOTE. PATIENT EATING DINNER, WHICH IS A CLEAR LIQUID DIET. PATIENT WILL BE NPO AT MIDNIGHT FOR PROCEDURE TOMORROW. VSS. NO ACUTE CHANGES. BED IN LOWEST POSITION, CALL LIGHT WITHIN REACH, AND BED ALARM ON. THIS RN WILL CONTINUE TO MONITOR AND PROVIDE CARE UNTIL HAND OFF WITH NEXT SHIFT.
[2021-04-21 05:03] LABS: BASOPHILS ABSOLUTE AUTO 0.01 K/mm3 (0.00-0.23); BASOPHILS PERCENT AUTO 0 % (0-2); EOSINOPHILS ABSOLUTE AUTO 0.23 K/mm3 (0.00-0.68); EOSINOPHILS PERCENT AUTO 6 % (0-6); Hematocrit 25.1 % (33.0-51.0); IMMATURE GRAN ABSOLUTE AUTO 0.01 K/mm3 (0.00-0.10); IMMATURE GRAN PERCENT AUTO 0 % (0-1); LYMPHOCYTES ABSOLUTE AUTO 0.94 K/mm3 (0.84-5.20); LYMPHOCYTES PERCENT AUTO 26 % (21-46); MONOCYTES ABSOLUTE AUTO 0.42 K/mm3 (0.16-1.47); MONOCYTES PERCENT AUTO 12 % (4-13); Mean Corpuscular HGB 31.1 pg (26.0-34.0); Mean Corpuscular HGB Conc 31.9 g/dL (31.5-36.5); Mean Corpuscular Volume 98 fL (80-100); Mean Platelet Volume 11.4 fL (9.1-12.4); NEUTROPHILS PERCENT AUTO 55 % (41-73); RDW Standard Deviation 71.7 fL (35.1-46.3); Red Blood Cell Count 2.57 M/mm3 (3.80-5.20); White Blood Cell Count 3.61 K/mm3 (4.00-11.30)
[2021-04-21 05:20] LABS: Platelet Count 30 K/mm3 (150-400)
[2021-04-21 05:23] LABS: Alanine Aminotransfer (ALT/SGP 21 U/L (12-78); Albumin, Blood 1.7 g/dL (3.4-5.0); Albumin/Globulin Ratio 0.4 (0.8-1.8); Alk Phos 129 U/L (50-136); Anion Gap 5 mmol/L (6-16); Aspartate Aminotrans (AST/SGOT 83 U/L (12-37); Blood Urea Nitrogen 7 mg/dL (8-24); Bun/Creatinine Ratio 12.8 (12.0-20.0); CO2, Blood 27 mmol/L (21-32); Calcium, Blood 7.7 mg/dL (8.5-10.1); Chloride, Blood 103 mmol/L (98-108); Creatinine, Blood 0.55 mg/dL (0.40-1.00); Globulin, Blood 4.2 g/dL (2.2-4.0); Glomerular Filtration Rate >60 (60-); Glucose, Blood 122 mg/dL (70-99); Potassium, Blood 3.7 mmol/L (3.5-5.5); Sodium, Blood 135 mmol/L (136-145); Total Protein, Blood 5.9 g/dL (6.4-8.2)
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
--- NOTE | 2021-04-21 14:45 | NUR ---
PT TRANSFERED TO [facility] VIA [facility]URNY. History, Chart, Medications and Allergies reviewed before start of procedure. Lungs clear T/O to Auscultation. Patient confirms NPO status and agrees with scheduled surgery. Pre-Op teaching done. Pt verbalizes understanding.
--- NOTE | 2021-04-21 15:25 | NUR ---
04/21/21 1525 SARAH HAMILTON History, Chart, Medications and Allergies reviewed before start of procedure. 3-LEAD EKG REVIEWED WITH PHYSICIAN PRIOR TO START OF PROCEDURE. O2 VIA POM. MONITOR INTACT WITH CONTINUOUS PULSE OXIMETRY AND INTERMITTENT BP. GENERAL WITH DR. VILA.
--- NOTE | 2021-04-21 16:47 | NUR ---
UPDATE 1530, THIS RN CONTACTED TO SEE IF PT WAS NEEING TO RECIEVE A PARACENTESIS TODAY. CALLED BACK AT 1556 AND INSTRUCTED THIS RN TO HOLD OFF WITH THE PARACENTESIS ORDER TODAY.
--- NOTE | 2021-04-21 18:13 | NUR ---
SHIFT SUMMARY A/O X3-4 AND COOPERATIVE OF CARE. PT BP'S SOFT, DR NOTIFIED, 500ML BOLUS GIVEN AND MIDODRINE FREQUENCY INCREASED TO TID. PT ON 2L NCAT BEGINNING OF SHIFT, PT ON RA SATS >95%. NO REPORT OF CHEST PAIN/PRESSURE THROUGHOUT SHIFT. NO REPORT OF SOB/DYSPNEA THROUGHOUT SHIFT. EGD DONE TODAY, NO INTERVENTIONS. CIWAS SCORED 3, 10, AND 8; LIBRIUM GIVEN PER EMAR. PT DIET ADVANCED FROM NPO TO FULL LIQUID. CONTACTED DR ABOUT POSSIBLE PARACENTESIS, DR ORDERED TO HOLD PARACENTESIS FOR NOW.
--- NOTE | 2021-04-21 20:37 | NUR ---
CARE ASSUMPTION: RECEIVED REPORT FROM RA SHELTON. PATIENT ASLEEP IN BED, BED LOW AND LOCKED. PATIENT GROGGY AND MILDLY TREMULOUS WHEN AWOKEN. VS WNL ON RA.
--- NOTE | 2021-04-22 00:01 | NUR ---
D/C'D R WRIST IV WNL 04/21/2021 AT 2115. NO DOCUMENTATION AVAILABLE IN VASCULAR ACCESS MODULE.
--- NOTE | 2021-04-22 05:22 | NUR ---
SHIFT SUMMARY: PATIENT CIWAS <=8, NO EMESIS OR TARRY STOOLS, PATIENT DENIES NAUSEA, SOB, AHD CHEST PAIN. PATIENT SLEPT MOST OF THE NIGHT, A&O X4 AND VERY HUNGRY WHEN AWAKE. PLEASANT AND COOPERATIVE WITH CARE. WILL CONTINUE TO MONITOR AND REPORT TO ONCOMING RN.
--- NOTE | 2021-04-22 07:24 | NUR ---
ASSUMED CARE: PT RESTING QUIETLY. NSR ON TELE. NO ACUTE NEEDS OR CONCERNS AT THIS TIME.
--- NOTE | 2021-04-22 08:10 | NUR ---
DR RIOS CAME TO SEE PT AND PT REPORTED NEW WEAKNESS TO RIGHT LEG. PT STATES SHE DID NOT REPORT THIS TO ANYONE AND THIS RN DID NOT HEAR ANYTHING IN REPORT. DR RIOS ORDERED HEAD CT WO CONTRAST. TRANSPORTER CAME TO COLLECT PT. PT TAKEN TO CT AT THIS TIME.
[2021-04-22 09:46] LABS: Source, Urine Straight Cath
--- NOTE | 2021-04-22 09:47 | NUR ---
DR APODACA CAME TO SEE PT AND NOTED THAT PT HAD VAGINAL DISCHARGE UPON EXAM. ORDERED FOR CLEAN CATCH UA WITH STRAIGHT CATH. SENIOR ENVIRONMENTAL TECHNICIAN ASSISTED. DR AWARE OF CT RESULT FROM THIS AM.
[2021-04-22 09:54] LABS: Appearance, Urine Clear (Clear); Blood, Urine 1+ (Neg); Color, Urine Amber (P-Yellow); Glucose Qualitative, Urine Neg (Neg); Ketones, Urine Neg (Neg); Leukocyte Esterase, Urine 2+ (Neg); Nitrite, Urine Neg (Neg); Protein, Urine 1+ (Neg); Urobilinogen, Urine 3+ (Normal)
[2021-04-22 10:05] LABS: Bilirubin, Urine 2+ (Neg)
[2021-04-22 10:06] LABS: Bacteria Rare /hpf; Red Blood Cells, Urine 0-2 /hpf (0-2); Squamous Epithelial Cells Rare /hpf (Few)
--- NOTE | 2021-04-22 16:30 | NUR ---
DR APODACA HERE TO SEE PT AND ASKED IF PHYSICAL THERAPY SAW PT. NURSE TOLD DR APODACA THAT PT WAS A 2 ASSIST TO RECLINER AND THAT NURSE FELT PT SHOULD STAY IN HOSPITAL FOR FURTHER REHAB. DR APODACA WENT INTO ROOM TO TELL PT THIS AND PT DEMANDED THAT SHE BE DISCHARGED OR SHE WAS GOING TO WALK OUT HERSELF. DR APODACA ASKED PT TO SHOW HER SHE COULD WALK. PUMP SERVICER SUPERVISOR ASSISTED PT ON WALK WITH WALKER. DR APODACA SAW THIS AND PLANS TO WRITE DC ORDERS
[2021-04-22] MEDS ORDERED: FOLI1 PO (17:06)
[2021-04-22] MEDS ORDERED: Nicoderm Cq1 EAC1 TOP (17:07)
[2021-04-22] MEDS ORDERED: OMEP20ER PO (17:07)
[2021-04-22] MEDS ORDERED: MIDO5 PO (17:07)
[2021-04-22] MEDS ORDERED: B-1100 M1 PO (17:08)
[2021-04-22] MEDS ORDERED: PROP10 PO (17:08)
[2021-04-22] MEDS ORDERED: LACT10SY PO (17:08)
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
[2021-05-03] MEDS ORDERED: LACT10SY (11:36)
[2021-05-03] MEDS ORDERED: Enulose10 GM/15 M PO ×2 (11:36)
== END 2021-04-22 17:48 | disposition home health service (06) | DRG 432 ==
LOC: ER 21:17 → ICUW 21:18 → PCU 04-18 15:02 → ICUW 04-18 15:02 → PCU 04-20 10:47
PROVIDERS: Family Medicine; Internal Medicine Gastroenterology; Student in an Organized Health Care Education/Training Program; ADMIT Family Medicine
PROC: 30233R1 Transfusion of Nonautologous Platelets into Peripheral Vein, Percutaneous Approach (ICD-10-PCS; principal; 2021-04-18)
PROC: HZ2ZZZZ Detoxification Services for Substance Abuse Treatment (ICD-10-PCS; 2021-04-18)
PROC: 0DJ08ZZ Inspection of Upper Intestinal Tract, Via Natural or Artificial Opening Endoscopic (ICD-10-PCS; 2021-04-21)
DX: K70.31 Alcoholic cirrhosis of liver with ascites (principal); I85.11 Secondary esophageal varices with bleeding; F10.239 Alcohol dependence with withdrawal, unspecified; D61.818 Other pancytopenia; K59.00 Constipation, unspecified; Z28.21 Immunization not carried out because of patient refusal; G40.909 Epilepsy, unspecified, not intractable, without status epilepticus; F43.10 Post-traumatic stress disorder, unspecified; E63.9 Nutritional deficiency, unspecified; F32.A Depression, unspecified; G89.29 Other chronic pain; Z20.822 Contact with and (suspected) exposure to COVID-19; R10.9 Unspecified abdominal pain; F41.9 Anxiety disorder, unspecified; D63.8 Anemia in other chronic diseases classified elsewhere; F17.210 Nicotine dependence, cigarettes, uncomplicated; F12.90 Cannabis use, unspecified, uncomplicated; I10 Essential (primary) hypertension; Z88.0 Allergy status to penicillin; Z88.8 Allergy status to other drugs, medicaments and biological substances; Z79.899 Other long term (current) drug therapy; Z98.890 Other specified postprocedural states; Z71.41 Alcohol abuse counseling and surveillance of alcoholic
CPT/HCPCS: 0241U; 36415; 36430; 70450; 80053; 81001; 82272; 83690; 83735; 84100; 84703; 85014; 85018; 85025; 85610; 85730; 86850; 86900; 86901; 86923; 87086; 93005; 93010; 96365; 96366; 96367; 96375; 96376; 97110; 97162; 99285-25; A9270; C1751; C9113; G0378; J0696; J2354; J2704; J2765; J7030; J7040; J7050; J7120; P9016; P9035; P9053

== ENCOUNTER 2021-04-27 15:44 | Inpatient (IN) | payer OTHER ==
[~2021-04-27] VITALS: Ht 157.5 cm; Wt 80.5 kg
[~2021-04-27 15:44] MED LIST changes: +B-1100 M1 PO; +MIDO5 PO; +Nicoderm Cq1 EAC1 TOP; +PROP10 PO
[2021-04-27 16:40] LABS: Alanine Aminotransfer (ALT/SGP 28 U/L (12-78); Albumin, Blood 2.2 g/dL (3.4-5.0); Albumin/Globulin Ratio 0.4 (0.8-1.8); Alk Phos 148 U/L (50-136); Anion Gap 5 mmol/L (6-16); Aspartate Aminotrans (AST/SGOT 84 U/L (12-37); Bilirubin, Total 1.9 mg/dL (0.1-1.0); Blood Urea Nitrogen 9 mg/dL (8-24); Bun/Creatinine Ratio 14.9 (12.0-20.0); CO2, Blood 27 mmol/L (21-32); Calcium, Blood 8.4 mg/dL (8.5-10.1); Chloride, Blood 107 mmol/L (98-108); Creatinine, Blood 0.61 mg/dL (0.40-1.00); Globulin, Blood 5.4 g/dL (2.2-4.0); Glomerular Filtration Rate >60 (60-); Glucose, Blood 98 mg/dL (70-99); Potassium, Blood 3.8 mmol/L (3.5-5.5); Sodium, Blood 139 mmol/L (136-145); Total Protein, Blood 7.6 g/dL (6.4-8.2)
[2021-04-27 16:52] LABS: BASOPHILS ABSOLUTE AUTO 0.03 K/mm3 (0.00-0.23); BASOPHILS PERCENT AUTO 1 % (0-2); EOSINOPHILS ABSOLUTE AUTO 0.11 K/mm3 (0.00-0.68); EOSINOPHILS PERCENT AUTO 2 % (0-6); Hemoglobin 9.4 g/dL (11.5-16.0); IMMATURE GRAN ABSOLUTE AUTO 0.01 K/mm3 (0.00-0.10); IMMATURE GRAN PERCENT AUTO 0 % (0-1); LYMPHOCYTES ABSOLUTE AUTO 1.13 K/mm3 (0.84-5.20); LYMPHOCYTES PERCENT AUTO 20 % (21-46); MONOCYTES ABSOLUTE AUTO 0.65 K/mm3 (0.16-1.47); MONOCYTES PERCENT AUTO 12 % (4-13); Mean Corpuscular HGB 30.5 pg (26.0-34.0); Mean Corpuscular HGB Conc 30.3 g/dL (31.5-36.5); Mean Corpuscular Volume 101 fL (80-100); Mean Platelet Volume 10.9 fL (9.1-12.4); NEUTROPHILS ABSOLUTE AUTO 3.73 K/mm3 (1.96-9.15); NEUTROPHILS PERCENT AUTO 66 % (41-73); Platelet Count 83 K/mm3 (150-400); RDW Coefficient Variation 20.5 % (11.7-14.2); RDW Standard Deviation 76.8 fL (35.1-46.3); Red Blood Cell Count 3.08 M/mm3 (3.80-5.20); White Blood Cell Count 5.66 K/mm3 (4.00-11.30)
[2021-04-27 18:06] LABS: Albumin, Blood 2.1 g/dL (3.4-5.0); Albumin/Globulin Ratio 0.4 (0.8-1.8); Bilirubin, Direct 0.9 mg/dL (0.0-0.3); Bilirubin, Indirect 0.8 mg/dL (0.1-0.7); Bilirubin, Total 1.7 mg/dL (0.1-1.0); Globulin, Blood 4.9 g/dL (2.2-4.0)
[2021-04-28 00:23] LABS: International Normalized Ratio 1.3; Prothrombin Time Results 13.4 Sec (9.7-11.5)
[2021-04-28 02:45] LABS: BASOPHILS ABSOLUTE AUTO 0.02 K/mm3 (0.00-0.23); BASOPHILS PERCENT AUTO 0 % (0-2); EOSINOPHILS ABSOLUTE AUTO 0.19 K/mm3 (0.00-0.68); EOSINOPHILS PERCENT AUTO 4 % (0-6); Hematocrit 27.1 % (33.0-51.0); Hemoglobin 8.6 g/dL (11.5-16.0); IMMATURE GRAN ABSOLUTE AUTO 0.01 K/mm3 (0.00-0.10); IMMATURE GRAN PERCENT AUTO 0 % (0-1); LYMPHOCYTES ABSOLUTE AUTO 1.19 K/mm3 (0.84-5.20); LYMPHOCYTES PERCENT AUTO 25 % (21-46); MONOCYTES ABSOLUTE AUTO 0.46 K/mm3 (0.16-1.47); MONOCYTES PERCENT AUTO 10 % (4-13); Mean Corpuscular HGB 31.2 pg (26.0-34.0); Mean Corpuscular HGB Conc 31.7 g/dL (31.5-36.5); Mean Corpuscular Volume 98 fL (80-100); Mean Platelet Volume 10.4 fL (9.1-12.4); NEUTROPHILS ABSOLUTE AUTO 2.84 K/mm3 (1.96-9.15); NEUTROPHILS PERCENT AUTO 60 % (41-73); Platelet Count 84 K/mm3 (150-400); RDW Coefficient Variation 20.2 % (11.7-14.2); RDW Standard Deviation 73.7 fL (35.1-46.3); Red Blood Cell Count 2.76 M/mm3 (3.80-5.20); White Blood Cell Count 4.71 K/mm3 (4.00-11.30)
[2021-04-28 03:01] LABS: Alanine Aminotransfer (ALT/SGP 22 U/L (12-78); Albumin, Blood 2.5 g/dL (3.4-5.0); Albumin/Globulin Ratio 0.6 (0.8-1.8); Alk Phos 132 U/L (50-136); Anion Gap 5 mmol/L (6-16); Aspartate Aminotrans (AST/SGOT 60 U/L (12-37); Bilirubin, Total 1.8 mg/dL (0.1-1.0); Blood Urea Nitrogen 9 mg/dL (8-24); Bun/Creatinine Ratio 15.5 (12.0-20.0); CO2, Blood 28 mmol/L (21-32); Calcium, Blood 8.4 mg/dL (8.5-10.1); Chloride, Blood 107 mmol/L (98-108); Creatinine, Blood 0.58 mg/dL (0.40-1.00); Globulin, Blood 4.3 g/dL (2.2-4.0); Glomerular Filtration Rate >60 (60-); Glucose, Blood 95 mg/dL (70-99); Potassium, Blood 3.3 mmol/L (3.5-5.5); Sodium, Blood 140 mmol/L (136-145); Total Protein, Blood 6.8 g/dL (6.4-8.2)
[2021-04-28 05:28] LABS: Source, Urine Clean Catch
[2021-04-28 05:35] LABS: Bilirubin, Urine Neg (Neg); Blood, Urine Neg (Neg); Glucose Qualitative, Urine Neg (Neg); Ketones, Urine Neg (Neg); Leukocyte Esterase, Urine 1+ (Neg); Nitrite, Urine Neg (Neg); Protein, Urine Neg (Neg); Specific Gravity, Urine 1.015 (1.003-1.022); Urobilinogen, Urine 2+ (Normal)
[2021-04-28 05:49] LABS: Appearance, Urine Clear (Clear); Color, Urine Yellow (P-Yellow)
[2021-04-28 05:50] LABS: Bacteria Mod /hpf; Red Blood Cells, Urine Not Seen /hpf (0-2); Squamous Epithelial Cells Mod /hpf (Few)
[2021-04-28 07:13] LABS: U Amphetamine Screen Not Detected; U Barbituate Screen Not Detected; U Benzodiazapine Screen DETECTED; U Buprenorphine Screen Not Detected; U Cannabinoids Screen Not Detected; U Cocaine Screen Not Detected; U Methadone Screen Not Detected; U Methamphetamine Screen Not Detected; U Opiates Screen Not Detected; U Oxycodone Screen Not Detected; U Phencyclidine Screen Not Detected; U Propoxyphene Screen Not Detected
[2021-04-28 11:50] LABS: Automated BF WBC Count 0.062 K/mm3 (0-999); Body Fluid WBC Count 62 /mm3 (0-999)
[2021-04-28 11:55] LABS: Albumin, Body Fluid 0.6 g/dL
[2021-04-28 12:18] LABS: Protein, Body Fluid 1.6 g/dL
[2021-04-28 13:47] LABS: RBC Count, Body Fluid 256 /mm3 (0-0)
[2021-04-28 13:52] LABS: Appearance, Body Fluid Clear (Clear); Color, Body Fluid Yellow (None-Yellow); Total Cell Count, Body Fluid 100
--- NOTE | 2021-04-28 18:15 | NUR ---
END OF SHIFT: PATIENT HAD INCREASED SIGNS OF ETOH WITHDRAWL THAN PREVIOUS DAY, LIBRIUM FROM EMAR MOST EFFECTIVE AND ATIVAN ADJUNCT. PATIENT CAME BACK FROM [facility] WHERE THEY PULLED 5.5L OFF. PATIENT WAS MORE FATIGUED AFTERWARDS, CIWA PREFORMED Q2 REPOSITIONED OFTEN, HAD A VERY LARGE BM AND REQUESTED TO SKIP AFTERNOON DOSE OF LACTULOSE AND CONTINUE DURING POKER MACHINE ATTENDANT. PATIENT HAS BEEN MAINLY SR, WITH SOME MILDY LOWER BP'S HELD PROPRANOLOL AFTER SPEAKING WITH PROVIDER AND PERAMETERS PLACED. PATIENT ASYMPTOMATIC FROM LOWER BP, ABLE TO EAT MUCH OF DINNER. DENIES CHEST PAIN SOB, WILL CONTINUE TO MONITOR
--- NOTE | 2021-04-29 03:10 | NUR ---
UPDATE PRIMARY RN AT LUNCH. THIS RN CALLED HOSPITALIST TO INFORM OF LOW BP WITH MAP OF 52. ORDERS FOR 10 MG OF MIDODRINE TO BE GIVEN NOW.
[2021-04-29 04:09] LABS: BASOPHILS ABSOLUTE AUTO 0.02 K/mm3 (0.00-0.23); BASOPHILS PERCENT AUTO 0 % (0-2); EOSINOPHILS ABSOLUTE AUTO 0.23 K/mm3 (0.00-0.68); EOSINOPHILS PERCENT AUTO 5 % (0-6); Hematocrit 25.9 % (33.0-51.0); Hemoglobin 8.1 g/dL (11.5-16.0); IMMATURE GRAN ABSOLUTE AUTO 0.01 K/mm3 (0.00-0.10); IMMATURE GRAN PERCENT AUTO 0 % (0-1); LYMPHOCYTES ABSOLUTE AUTO 1.32 K/mm3 (0.84-5.20); LYMPHOCYTES PERCENT AUTO 29 % (21-46); MONOCYTES ABSOLUTE AUTO 0.43 K/mm3 (0.16-1.47); MONOCYTES PERCENT AUTO 9 % (4-13); Mean Corpuscular HGB 30.5 pg (26.0-34.0); Mean Corpuscular HGB Conc 31.3 g/dL (31.5-36.5); Mean Corpuscular Volume 97 fL (80-100); Mean Platelet Volume 11.3 fL (9.1-12.4); NEUTROPHILS ABSOLUTE AUTO 2.59 K/mm3 (1.96-9.15); NEUTROPHILS PERCENT AUTO 56 % (41-73); Platelet Count 104 K/mm3 (150-400); RDW Coefficient Variation 19.9 % (11.7-14.2); RDW Standard Deviation 72.4 fL (35.1-46.3); Red Blood Cell Count 2.66 M/mm3 (3.80-5.20)
[2021-04-29 04:27] LABS: Alanine Aminotransfer (ALT/SGP 18 U/L (12-78); Albumin/Globulin Ratio 0.5 (0.8-1.8); Alk Phos 116 U/L (50-136); Anion Gap 4 mmol/L (6-16); Aspartate Aminotrans (AST/SGOT 48 U/L (12-37); Bilirubin, Total 1.2 mg/dL (0.1-1.0); Blood Urea Nitrogen 9 mg/dL (8-24); Bun/Creatinine Ratio 16.9 (12.0-20.0); CO2, Blood 26 mmol/L (21-32); Calcium, Blood 8.2 mg/dL (8.5-10.1); Chloride, Blood 107 mmol/L (98-108); Creatinine, Blood 0.53 mg/dL (0.40-1.00); Globulin, Blood 4.2 g/dL (2.2-4.0); Glomerular Filtration Rate >60 (60-); Glucose, Blood 88 mg/dL (70-99); Potassium, Blood 4.1 mmol/L (3.5-5.5); Sodium, Blood 137 mmol/L (136-145); Total Protein, Blood 6.2 g/dL (6.4-8.2)
--- NOTE | 2021-04-29 05:40 | NUR ---
NOTIFIED CARPENTER SUPERVISOR ABOUT LOW BP 90\38 MAP 53. PENDING CALL BACK FROM .
--- NOTE | 2021-04-29 06:37 | NUR ---
PT AXO X3 UNSURE ON TIME\DATE. PT HAD SOFT BP THROUGH OUT THE NIGHT NOTIFIED. PT STARTED ON MIDODRINE PO. AT 6 AM BP 90\38 MAP 53 PT REPORT MD SAMEERA NOTIFIED. ORDER FOR NS 250CC BOLUS RECEIVED. CIWA Q2 SCORING, MEDICATED PER eMAR. BED ALARM ON. CALL LIGHT WITHIN REACH/ SIDE RAIL UP X3. PT DENIES CHEST\PRESSURE. ON RA SATURATION MAINTAINED >92%
--- NOTE | 2021-04-29 17:49 | NUR ---
PT SUMMARY: NO ACUTE CHANGE FOR THE SHIFT, BP SYSTOLIC REMAINED SOFT 100'S, MAP ABOVE 60'S MIDODRINE 10 MG PO TID GIVEN FOR THE SHIFT, PROPANOLOL HELD DR RODRÍGUEZ AWARE. SATS ABOVE 95% ON RA, HRR SR 70'S, AFEBRILE. PT WORKED WITH PT/OT TODAY ABLE TO AMBULATE 1PA VIA WALKER IN AND OUT OF THE ROOM. PT ALERT AND ORIENTED X4, HAS MILD CONFUSION CIWA AT 6-8 LIBRIUM 50MG GIVEN TWICE FOR THE SHIFT. PT HAS BEEN RESTING IN BED MOST OF THE SHIFT, INCONTINENT OF VOIDS ATTENDS IN PLACE. PT DENIES ANY PAIN AND DISCOMFORT. PT CALLS APPROPRIATELY ABLE TO MAKE NEEDS KNOWN, CALL LIGHTS IN REACH WILL REPORT TO ONCOMING SHIFT.
[2021-04-30 04:37] LABS: BASOPHILS ABSOLUTE AUTO 0.04 K/mm3 (0.00-0.23); BASOPHILS PERCENT AUTO 1 % (0-2); EOSINOPHILS ABSOLUTE AUTO 0.28 K/mm3 (0.00-0.68); EOSINOPHILS PERCENT AUTO 4 % (0-6); Hematocrit 25.5 % (33.0-51.0); Hemoglobin 8.1 g/dL (11.5-16.0); IMMATURE GRAN ABSOLUTE AUTO 0.02 K/mm3 (0.00-0.10); IMMATURE GRAN PERCENT AUTO 0 % (0-1); LYMPHOCYTES ABSOLUTE AUTO 1.63 K/mm3 (0.84-5.20); LYMPHOCYTES PERCENT AUTO 26 % (21-46); MONOCYTES ABSOLUTE AUTO 0.66 K/mm3 (0.16-1.47); MONOCYTES PERCENT AUTO 10 % (4-13); Mean Corpuscular HGB 30.8 pg (26.0-34.0); Mean Corpuscular HGB Conc 31.8 g/dL (31.5-36.5); Mean Corpuscular Volume 97 fL (80-100); Mean Platelet Volume 10.5 fL (9.1-12.4); NEUTROPHILS ABSOLUTE AUTO 3.72 K/mm3 (1.96-9.15); NEUTROPHILS PERCENT AUTO 59 % (41-73); Platelet Count 120 K/mm3 (150-400); RDW Coefficient Variation 19.9 % (11.7-14.2); RDW Standard Deviation 69.9 fL (35.1-46.3); Red Blood Cell Count 2.63 M/mm3 (3.80-5.20); White Blood Cell Count 6.35 K/mm3 (4.00-11.30)
[2021-04-30 04:51] LABS: Albumin, Blood 1.8 g/dL (3.4-5.0); Albumin/Globulin Ratio 0.4 (0.8-1.8); Bilirubin, Direct 0.7 mg/dL (0.0-0.3); Bilirubin, Indirect 0.6 mg/dL (0.1-0.7); Bilirubin, Total 1.3 mg/dL (0.1-1.0); Globulin, Blood 4.2 g/dL (2.2-4.0)
--- NOTE | 2021-04-30 05:13 | NUR ---
SHIFT SUMMARY PT ALERT AND ORIENTED X 4. CONFUSED AT TIMES. BED ALARM IN PLACE. CIWA SCORES 6-8. MEDICATED PER EMAR NEEDED. HR STABLE. BP STABLE,MAP IN 60'S. NO CP OR PRESSURE REPORTED. BRIEF IN PLACE FOR INCONTINENCE. PT TURNED Q 2 HRS. OXYGEN SATURATION MAINTAINED ABOVE 92% ON RA. WILL CONT TO MONITOR UNTIL REPORT GIVEN TO DAYSHIFT RN.
--- NOTE | 2021-04-30 17:02 | NUR ---
PT SUMMARY: NO ACUTE CHANGE FOR THE SHIFT, BP SYSTOLIC STILL 90-100'S, PT REMAINS ON MIDODRINE PO, LACTULOSE 30G QID PT HAD AN EXTRA LARGE BM BROWN IN COLOR SOFT IN CONSISTENCY, PT STATED SHE FEELS A LOT MUCH BETTER. PT HAS BEEN GETTING UP VIA WALKER UP TO CHAIR AND BEDSIDE COMMODE. LIBRIUM GIVEN X1. PT HAS BEEN RESTING IN BED, CALLS APPROPRIATELY. CALL LIGHTS IN REACH WILL REPORT TO ONCOMING SHIFT
[2021-05-01 04:28] LABS: BASOPHILS ABSOLUTE AUTO 0.04 K/mm3 (0.00-0.23); BASOPHILS PERCENT AUTO 1 % (0-2); EOSINOPHILS ABSOLUTE AUTO 0.25 K/mm3 (0.00-0.68); EOSINOPHILS PERCENT AUTO 3 % (0-6); Hematocrit 26.8 % (33.0-51.0); Hemoglobin 8.6 g/dL (11.5-16.0); IMMATURE GRAN ABSOLUTE AUTO 0.03 K/mm3 (0.00-0.10); IMMATURE GRAN PERCENT AUTO 0 % (0-1); LYMPHOCYTES ABSOLUTE AUTO 1.29 K/mm3 (0.84-5.20); LYMPHOCYTES PERCENT AUTO 15 % (21-46); MONOCYTES ABSOLUTE AUTO 0.73 K/mm3 (0.16-1.47); MONOCYTES PERCENT AUTO 9 % (4-13); Mean Corpuscular HGB 30.9 pg (26.0-34.0); Mean Corpuscular HGB Conc 32.1 g/dL (31.5-36.5); Mean Corpuscular Volume 96 fL (80-100); Mean Platelet Volume 11.6 fL (9.1-12.4); NEUTROPHILS ABSOLUTE AUTO 6.08 K/mm3 (1.96-9.15); NEUTROPHILS PERCENT AUTO 72 % (41-73); Platelet Count 129 K/mm3 (150-400); RDW Coefficient Variation 19.8 % (11.7-14.2); RDW Standard Deviation 70.3 fL (35.1-46.3); Red Blood Cell Count 2.78 M/mm3 (3.80-5.20); White Blood Cell Count 8.42 K/mm3 (4.00-11.30)
[2021-05-01 04:48] LABS: Alanine Aminotransfer (ALT/SGP 18 U/L (12-78); Albumin/Globulin Ratio 0.5 (0.8-1.8); Alk Phos 115 U/L (50-136); Anion Gap 5 mmol/L (6-16); Aspartate Aminotrans (AST/SGOT 52 U/L (12-37); Bilirubin, Total 1.3 mg/dL (0.1-1.0); Blood Urea Nitrogen 11 mg/dL (8-24); Bun/Creatinine Ratio 17.8 (12.0-20.0); CO2, Blood 26 mmol/L (21-32); Calcium, Blood 8.4 mg/dL (8.5-10.1); Chloride, Blood 107 mmol/L (98-108); Creatinine, Blood 0.62 mg/dL (0.40-1.00); Globulin, Blood 4.4 g/dL (2.2-4.0); Glomerular Filtration Rate >60 (60-); Glucose, Blood 98 mg/dL (70-99); Sodium, Blood 138 mmol/L (136-145); Total Protein, Blood 6.4 g/dL (6.4-8.2)
--- NOTE | 2021-05-01 05:12 | NUR ---
SHIFT SUMMARY PT ALERT AND ORIENTED X4. LETHARGIC. HR SR 70-80'S. BP STABLE. AFEBRILE. ON RA SATS OVER 97%. ON LACTULOSE, HAVING FREQUENT INCONTINENT BM'S. ASLEEP MOST OF NIGHT. NO C/O PAIN OR DISCOMFORT. BRIANDA POWERGLIDE DRAWS BLOOD. IN BED SLEEPING WITH CALL ALARM AT SIDE. WILL CONTINUE TO MONITOR UNTIL REPORT GIVEN TO DAYSIT RN
--- NOTE | 2021-05-01 14:03 | NUR ---
Patiemren is resting when I enter pt's rm. Patient awakens to the sound of her name but is very groggy. She is able to affirm that she is holding up ok and that she would like a prayer said for her. I gladly provide prayer. Patient falls asleep during the prayer. I will return and see if I can catch patient at more lucid moment.
--- NOTE | 2021-05-01 18:41 | NUR ---
PATIENT ARRIVED TO ROOM 333 AT 16:30 FROM PCU. PATIENT HERE D/T HEPATIC ENCEPHALOPATHY, CHRONIC ALCOHOLIC LIVER CIRRHOSIS, ASCITES. ORIENTED X 3, BUT LETHARGIC. BLOOD PRESSURE LOW, MIDODRINE HELD. ON LACTULOSE. REGULAR DIET, SOME NONPRODUCTED COUGH NOTED. CIWA 1 AT THIS TIME. PATIENT EATING DINNER AT THIS TIME.
--- NOTE | 2021-05-02 04:54 | NUR ---
SHIFT SUMMARY PATIENT LETHARGIC MOST OF THE SHIFT AND BECAME MORE VERBAL EXPRESSING HER NEEDS LATER IN SHIFT. AXOX 3 AND BEDREST THIS SHIFT. LACTULOSE GIVEN PER EMAR. POWERGLIDE BRIANDA INTACT. CERTIFIED ANESTHESIOLOGIST ASSISTANT REPORTS NSR 74. VSS/AFEBRILE. DENIES PAIN, SOB, AND N/V. CALL LIGHT IN REACH. BED IN LOWEST POSITION. WILL CONTINUE TO MONITOR UNTIL DAY SHIFT NURSE ASSUMES CARE.
[2021-05-02 05:12] LABS: BASOPHILS ABSOLUTE AUTO 0.03 K/mm3 (0.00-0.23); BASOPHILS PERCENT AUTO 1 % (0-2); EOSINOPHILS ABSOLUTE AUTO 0.26 K/mm3 (0.00-0.68); EOSINOPHILS PERCENT AUTO 4 % (0-6); Hematocrit 26.5 % (33.0-51.0); Hemoglobin 8.4 g/dL (11.5-16.0); IMMATURE GRAN ABSOLUTE AUTO 0.01 K/mm3 (0.00-0.10); IMMATURE GRAN PERCENT AUTO 0 % (0-1); LYMPHOCYTES ABSOLUTE AUTO 1.55 K/mm3 (0.84-5.20); LYMPHOCYTES PERCENT AUTO 25 % (21-46); MONOCYTES ABSOLUTE AUTO 0.58 K/mm3 (0.16-1.47); MONOCYTES PERCENT AUTO 9 % (4-13); Mean Corpuscular HGB 30.8 pg (26.0-34.0); Mean Corpuscular HGB Conc 31.7 g/dL (31.5-36.5); Mean Corpuscular Volume 97 fL (80-100); Mean Platelet Volume 10.7 fL (9.1-12.4); NEUTROPHILS ABSOLUTE AUTO 3.76 K/mm3 (1.96-9.15); NEUTROPHILS PERCENT AUTO 61 % (41-73); Platelet Count 123 K/mm3 (150-400); RDW Coefficient Variation 20.1 % (11.7-14.2); RDW Standard Deviation 72.6 fL (35.1-46.3); Red Blood Cell Count 2.73 M/mm3 (3.80-5.20); White Blood Cell Count 6.19 K/mm3 (4.00-11.30)
[2021-05-02 05:29] LABS: Albumin, Blood 1.9 g/dL (3.4-5.0); Albumin/Globulin Ratio 0.4 (0.8-1.8); Bilirubin, Direct 0.6 mg/dL (0.0-0.3); Bilirubin, Indirect 0.6 mg/dL (0.1-0.7); Bilirubin, Total 1.2 mg/dL (0.1-1.0); Globulin, Blood 4.4 g/dL (2.2-4.0); Total Protein, Blood 6.3 g/dL (6.4-8.2)
--- NOTE | 2021-05-02 16:05 | NUR ---
WALKED INTO THE PATIENT'S ROOM AND OBSERVED HER STRUGGLING TO CLEAR HER SECREATIONS. PATIENT SAT UP TO A 90 DEGREE LEVEL AND LUNGS ASSESSED. BILATERAL LUNGS HAVE CRACKLES BUT PT'S RIGHT LUNG SEEMED TO SOUND WORSE. RT CALLED STATED THAT THEY WOULD PROVIDE A PRN BREATHING TREATMENT IF WARRANTED. AFTER THE BREATHING TREATMENT PT' REASSESS AND CRACKLES IMPROVED BUT ARE STILL PRESENT. VS STABLE, NO PAIN NOTED, MD NOTIFIED OF PT'S CONDITION.
[2021-05-03 05:38] LABS: BASOPHILS ABSOLUTE AUTO 0.03 K/mm3 (0.00-0.23); BASOPHILS PERCENT AUTO 0 % (0-2); EOSINOPHILS ABSOLUTE AUTO 0.29 K/mm3 (0.00-0.68); EOSINOPHILS PERCENT AUTO 4 % (0-6); Hematocrit 25.1 % (33.0-51.0); Hemoglobin 8.1 g/dL (11.5-16.0); IMMATURE GRAN ABSOLUTE AUTO 0.02 K/mm3 (0.00-0.10); IMMATURE GRAN PERCENT AUTO 0 % (0-1); LYMPHOCYTES ABSOLUTE AUTO 1.85 K/mm3 (0.84-5.20); LYMPHOCYTES PERCENT AUTO 27 % (21-46); MONOCYTES ABSOLUTE AUTO 0.71 K/mm3 (0.16-1.47); MONOCYTES PERCENT AUTO 11 % (4-13); Mean Corpuscular HGB 31.3 pg (26.0-34.0); Mean Corpuscular HGB Conc 32.3 g/dL (31.5-36.5); Mean Corpuscular Volume 97 fL (80-100); Mean Platelet Volume 11.7 fL (9.1-12.4); NEUTROPHILS ABSOLUTE AUTO 3.85 K/mm3 (1.96-9.15); NEUTROPHILS PERCENT AUTO 57 % (41-73); Platelet Count 151 K/mm3 (150-400); RDW Coefficient Variation 19.9 % (11.7-14.2); RDW Standard Deviation 70.4 fL (35.1-46.3); Red Blood Cell Count 2.59 M/mm3 (3.80-5.20); White Blood Cell Count 6.75 K/mm3 (4.00-11.30)
[2021-05-03 06:01] LABS: Alanine Aminotransfer (ALT/SGP 22 U/L (12-78); Albumin, Blood 1.8 g/dL (3.4-5.0); Albumin/Globulin Ratio 0.4 (0.8-1.8); Alk Phos 103 U/L (50-136); Anion Gap 4 mmol/L (6-16); Aspartate Aminotrans (AST/SGOT 58 U/L (12-37); Bilirubin, Total 1.4 mg/dL (0.1-1.0); Blood Urea Nitrogen 10 mg/dL (8-24); Bun/Creatinine Ratio 18.7 (12.0-20.0); CO2, Blood 25 mmol/L (21-32); Calcium, Blood 8.4 mg/dL (8.5-10.1); Chloride, Blood 108 mmol/L (98-108); Creatinine, Blood 0.53 mg/dL (0.40-1.00); Globulin, Blood 4.3 g/dL (2.2-4.0); Glomerular Filtration Rate >60 (60-); Glucose, Blood 77 mg/dL (70-99); Potassium, Blood 3.9 mmol/L (3.5-5.5); Sodium, Blood 137 mmol/L (136-145); Total Protein, Blood 6.1 g/dL (6.4-8.2)
--- NOTE | 2021-05-03 06:05 | NUR ---
SHIFT SUMMARY PT IS A 40 Y/O FEMALE, ADMITTED FOR HEPATIC ENCEPHALOPATHY. SHE IS A&O X 2, BEDREST, INCONTINENT OF BOWEL AND BLADDER. NO C/O ACUTE PAIN, NAUSEA OR SOB. VITAL SIGNS STABLE. TELE SHOWED NSR IN THE 70S. NO OTHER ACUTE CHANGES IN PT CONDITION NOTED DURING THE NIGHT. WILL CONTINUE TO MONITOR AND TREAT PER EMAR UNTIL HAND OFF TO DAY SHIFT RN.
[2021-05-03] MEDS ORDERED: LACT10SY ×2 (11:36)
[2021-05-03] MEDS ORDERED: Enulose10 GM/15 M PO ×3 (11:36)
[2021-05-03] MEDS ORDERED: KEPPRA250 M1 PO (11:37)
[2021-05-03] MEDS ORDERED: Nicoderm Cq1 EAC1 TOP (11:38)
[2021-05-03] MEDS ORDERED: MIDODRINE HCL10 M1 PO (11:38)
[2021-05-03] MEDS ORDERED: PROP10 PO (11:39)
[2021-05-03] MEDS ORDERED: OMEP20ER PO (11:39)
[2021-05-03] MEDS ORDERED: SPIR25 PO (11:40)
[2021-05-03] MEDS ORDERED: B-1100 M1 PO (11:41)
[2021-05-03] MEDS ORDERED: Vitamin D1000 UNI1 PO (11:42)
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
--- NOTE | 2021-05-04 06:47 | NUR ---
SHIFT SUMMARY PT IS A 40 Y/O FEMALE, ADMITTED FOR HEPATIC ENCEPHALOPATHY. SHE IS A&O X 2, BEDREST. PLEASANT AND COOPERATIVE WITH CARE DURING THE NIGHT. VITAL SIGNS STABLE. NO C/O ACUTE PAIN, NAUSEA OR SOB. NO ACUTE CHANGES IN PT CONDITION NOTED. WILL CONTINUE TO MONITOR AND TREAT PER EMAR UNTIL HAND OFF TO DAY SHIFT RN.
[2021-05-04] MEDS ORDERED: BENADRYL25 M1 PO (23:36)
[2021-05-05 05:54] LABS: Anion Gap 5 mmol/L (6-16); Blood Urea Nitrogen 8 mg/dL (8-24); CO2, Blood 26 mmol/L (21-32); Calcium, Blood 8.5 mg/dL (8.5-10.1); Chloride, Blood 108 mmol/L (98-108); Glomerular Filtration Rate >60 (60-); Glucose, Blood 102 mg/dL (70-99); Potassium, Blood 3.6 mmol/L (3.5-5.5); Sodium, Blood 139 mmol/L (136-145)
--- NOTE | 2021-05-05 06:58 | NUR ---
SHIFT SUMMARY PT IS A 40 Y/O FEMALE, ADMITTED FOR HEPATIC ENCEPHALOPATHY. SHE IS A&O X 2, 1-2PA TO [facility] CONTINENT/INCONTINENT. PT DOES HAVE EPISODES OF AGITATION WITH STAFF PER REPORT, THOUGH WAS PLEASANT AND COOPERATIVE DURING THE NIGHT. NO C/O ACUTE PAIN, NAUSEA OR SOB. VITAL SIGNS STABLE. NO ACUTE CHANGES IN PT CONDITION NOTED DURING THE NIGHT. WILL CONTINUE TO MONITOR AND TREAT PER EMAR UNTIL HAND OFF TO DAY SHIFT RN.
--- NOTE | 2021-05-05 16:46 | NUR ---
SHIFT SUMMARY A/OX3, DROWSY T/O SHIFT. WORKED WITH PT/OT TODAY. PT UPSET AND CURSING AT STAFF STATING THAT SHE IS READY TO LEAVE. ATTEMPTED TO EDUCATE PT ABOUT WORKING WITH STAFF TO GAIN STRENGTH FOR A SAFE D/C. PT TOLD THIS NURSE TO GET OUT OF HER ROOM. BED IN LOWEST POSITION WITH CALL LIGHT IN REACH. WILL CONTINUE TO MONITOR AND REPORT TO ONCOMING RN.
--- NOTE | 2021-05-06 05:12 | NUR ---
PT IS ASLEEP THIS MORNING. PT IS ALERT AND ORIENTED X4, NOT MONITORED, ON RA SATTING >90 NO C/O SOB, ABD IS STILL VERY DISTENTED AND FIRM. PT STILL HAS SLIGHT TREMORS BUT DOES NOT C/O PAIN, SOB, OR N/V. VITALS HAVE BEEN STABLE OVERNIGHT, NO ACUTE EVENTS. PT BELONGINGS AND CALL LIGHT WITHIN REACH.
[2021-05-06 05:23] LABS: BASOPHILS ABSOLUTE AUTO 0.02 K/mm3 (0.00-0.23); BASOPHILS PERCENT AUTO 0 % (0-2); EOSINOPHILS ABSOLUTE AUTO 0.32 K/mm3 (0.00-0.68); EOSINOPHILS PERCENT AUTO 5 % (0-6); Hematocrit 26.6 % (33.0-51.0); Hemoglobin 8.5 g/dL (11.5-16.0); IMMATURE GRAN ABSOLUTE AUTO 0.01 K/mm3 (0.00-0.10); IMMATURE GRAN PERCENT AUTO 0 % (0-1); LYMPHOCYTES ABSOLUTE AUTO 1.79 K/mm3 (0.84-5.20); LYMPHOCYTES PERCENT AUTO 30 % (21-46); MONOCYTES ABSOLUTE AUTO 0.47 K/mm3 (0.16-1.47); MONOCYTES PERCENT AUTO 8 % (4-13); Mean Corpuscular HGB 30.6 pg (26.0-34.0); Mean Corpuscular Volume 96 fL (80-100); Mean Platelet Volume 11.7 fL (9.1-12.4); NEUTROPHILS PERCENT AUTO 57 % (41-73); Platelet Count 152 K/mm3 (150-400); RDW Coefficient Variation 19.8 % (11.7-14.2); RDW Standard Deviation 70.4 fL (35.1-46.3); Red Blood Cell Count 2.78 M/mm3 (3.80-5.20); White Blood Cell Count 6.01 K/mm3 (4.00-11.30)
[2021-05-06 05:52] LABS: Alanine Aminotransfer (ALT/SGP 20 U/L (12-78); Albumin/Globulin Ratio 0.5 (0.8-1.8); Alk Phos 102 U/L (50-136); Anion Gap 6 mmol/L (6-16); Aspartate Aminotrans (AST/SGOT 51 U/L (12-37); Bilirubin, Total 1.3 mg/dL (0.1-1.0); Blood Urea Nitrogen 8 mg/dL (8-24); Bun/Creatinine Ratio 15.9 (12.0-20.0); CO2, Blood 25 mmol/L (21-32); Calcium, Blood 8.4 mg/dL (8.5-10.1); Chloride, Blood 107 mmol/L (98-108); Glomerular Filtration Rate >60 (60-); Glucose, Blood 92 mg/dL (70-99); Potassium, Blood 3.9 mmol/L (3.5-5.5); Sodium, Blood 138 mmol/L (136-145)
--- NOTE | 2021-05-06 15:11 | NUR ---
ASSUMED CARE AT 13:00. PATIENT ALERT AND ORIENTED X 4, FORGETFUL AND CONFUSED AT TIMES. ABLE TO VERBALIZE NEEDS. NO SOB AT RA. RESTING ON BED AT THIS TIME. DENIES PAIN OR DISCOMFORT. WILL CONTINUE TO MONITOR.
== END 2021-05-06 16:36 | disposition left against medical advice (07) | DRG 442 ==
LOC: ER 15:44 → ERHOLD 21:36 → PCU 22:13 → MEDS 05-01 16:28
PROVIDERS: Family Medicine; Hospitalist; Physician Assistant; Student in an Organized Health Care Education/Training Program; ADMIT Internal Medicine
PROC: HZ2ZZZZ Detoxification Services for Substance Abuse Treatment (ICD-10-PCS; principal; 2021-04-27)
PROC: 0W9G3ZZ Drainage of Peritoneal Cavity, Percutaneous Approach (ICD-10-PCS; 2021-04-28)
PROC: 0W9G3ZZ Drainage of Peritoneal Cavity, Percutaneous Approach (ICD-10-PCS; 2021-05-03)
DX: K72.90 Hepatic failure, unspecified without coma (principal); F10.139 Alcohol abuse with withdrawal, unspecified; K70.31 Alcoholic cirrhosis of liver with ascites; D69.6 Thrombocytopenia, unspecified; G40.909 Epilepsy, unspecified, not intractable, without status epilepticus; G89.29 Other chronic pain; I95.9 Hypotension, unspecified; F32.A Depression, unspecified; E88.09 Other disorders of plasma-protein metabolism, not elsewhere classified; R10.9 Unspecified abdominal pain; F43.10 Post-traumatic stress disorder, unspecified; F41.9 Anxiety disorder, unspecified; I10 Essential (primary) hypertension; F17.210 Nicotine dependence, cigarettes, uncomplicated; Z71.41 Alcohol abuse counseling and surveillance of alcoholic; F12.90 Cannabis use, unspecified, uncomplicated; Z87.898 Personal history of other specified conditions; Z88.0 Allergy status to penicillin; Z88.8 Allergy status to other drugs, medicaments and biological substances; Z79.899 Other long term (current) drug therapy; Z98.890 Other specified postprocedural states; Y90.1 Blood alcohol level of 20-39 mg/100 ml
CPT/HCPCS: 36415; 49083; 70450; 71046; 73620; 76705; 80048; 80053; 80076; 81001; 82042; 82140; 83690; 84157; 85025; 85610; 87070; 87086; 87205; 88108; 88305; 89051; 94640; 94664; 94760; 96374; 97116; 97162; 97166; 97530; 97535; 99285-25; A9270; C1751; G0480; J1650; J2060; J2405; J3411; J3475; J7030; J7042; J7050; P9041; P9046

== ENCOUNTER 2021-05-08 20:34 | Emergency (ER) | payer OTHER ==
[~2021-05-08] VITALS: Ht 157.5 cm; Wt 70.3 kg
[~2021-05-08 20:34] MED LIST changes: +BENADRYL25 M1 PO; +Enulose10 GM/15 M PO; +KEPPRA250 M1 PO; +LACT10SY; +MIDODRINE HCL10 M1 PO; +SPIR25 PO; +Vitamin D1000 UNI1 PO
[2021-05-08 21:48] LABS: BASOPHILS ABSOLUTE AUTO 0.04 K/mm3 (0.00-0.23); BASOPHILS PERCENT AUTO 1 % (0-2); EOSINOPHILS PERCENT AUTO 4 % (0-6); Hemoglobin 10.4 g/dL (11.5-16.0); IMMATURE GRAN ABSOLUTE AUTO 0.02 K/mm3 (0.00-0.10); IMMATURE GRAN PERCENT AUTO 0 % (0-1); LYMPHOCYTES ABSOLUTE AUTO 1.79 K/mm3 (0.84-5.20); LYMPHOCYTES PERCENT AUTO 25 % (21-46); MONOCYTES ABSOLUTE AUTO 0.53 K/mm3 (0.16-1.47); MONOCYTES PERCENT AUTO 7 % (4-13); Mean Corpuscular HGB 30.5 pg (26.0-34.0); Mean Corpuscular HGB Conc 31.5 g/dL (31.5-36.5); Mean Corpuscular Volume 97 fL (80-100); Mean Platelet Volume 10.8 fL (9.1-12.4); NEUTROPHILS ABSOLUTE AUTO 4.62 K/mm3 (1.96-9.15); NEUTROPHILS PERCENT AUTO 63 % (41-73); Platelet Count 177 K/mm3 (150-400); RDW Coefficient Variation 19.7 % (11.7-14.2); RDW Standard Deviation 70.8 fL (35.1-46.3); Red Blood Cell Count 3.41 M/mm3 (3.80-5.20)
[2021-05-08 22:06] LABS: Alanine Aminotransfer (ALT/SGP 29 U/L (12-78); Albumin, Blood 2.8 g/dL (3.4-5.0); Albumin/Globulin Ratio 0.5 (0.8-1.8); Alk Phos 136 U/L (50-136); Anion Gap 10 mmol/L (6-16); Aspartate Aminotrans (AST/SGOT 87 U/L (12-37); Bilirubin, Total 2.2 mg/dL (0.1-1.0); Blood Urea Nitrogen 9 mg/dL (8-24); Bun/Creatinine Ratio 15.6 (12.0-20.0); CO2, Blood 25 mmol/L (21-32); Calcium, Blood 9.1 mg/dL (8.5-10.1); Chloride, Blood 105 mmol/L (98-108); Creatinine, Blood 0.58 mg/dL (0.40-1.00); Globulin, Blood 5.6 g/dL (2.2-4.0); Glomerular Filtration Rate >60 (60-); Glucose, Blood 84 mg/dL (70-99); Magnesium, Blood 1.9 mg/dL (1.6-2.4); Potassium, Blood 3.5 mmol/L (3.5-5.5); Sodium, Blood 140 mmol/L (136-145); Total Protein, Blood 8.4 g/dL (6.4-8.2)
== END 2021-05-09 00:39 | disposition home or self-care (01) ==
LOC: ER 20:34
PROVIDERS: Physician Assistant
DX: R53.1 Weakness (principal); Z88.0 Allergy status to penicillin; Z88.8 Allergy status to other drugs, medicaments and biological substances; Z79.899 Other long term (current) drug therapy; G40.909 Epilepsy, unspecified, not intractable, without status epilepticus; F43.10 Post-traumatic stress disorder, unspecified; I10 Essential (primary) hypertension; J44.9 Chronic obstructive pulmonary disease, unspecified; F17.210 Nicotine dependence, cigarettes, uncomplicated
CPT/HCPCS: 36415; 70450; 80053; 83690; 83735; 85025; 99284

== ENCOUNTER 2021-05-09 02:54 | Emergency (ER) | payer OTHER ==
[~2021-05-09] VITALS: Ht 160 cm; Wt 70.3 kg
== END 2021-05-09 12:05 | disposition home or self-care (01) ==
LOC: ER 02:54
DX: S39.012A Strain of muscle, fascia and tendon of lower back, initial encounter (principal); F10.10 Alcohol abuse, uncomplicated; F17.210 Nicotine dependence, cigarettes, uncomplicated; J44.9 Chronic obstructive pulmonary disease, unspecified; I10 Essential (primary) hypertension; Z79.899 Other long term (current) drug therapy; Z88.0 Allergy status to penicillin; Z88.8 Allergy status to other drugs, medicaments and biological substances; W19.XXXA Unspecified fall, initial encounter
CPT/HCPCS: 99282; A9270

== ENCOUNTER 2021-05-12 13:47 | Day surgery (SDC) | payer OTHER | END 2021-05-12 23:47 | disposition home or self-care (01) | LOC: US 13:47 | DX: K72.90 Hepatic failure, unspecified without coma (principal); R18.8 Other ascites; E87.70 Fluid overload, unspecified | CPT/HCPCS: 49083 ==